=== PATIENT | female | born 1935 | race Caucasian/White ===

== ENCOUNTER 2017-01-24 17:51 | Emergency (ER) | payer MEDICARE, BC ==
--- NOTE | 2017-01-24 19:29 | RAD ---
INDICATION: Ankle pain without reported traumatic injury COMPARISON: None. TECHNIQUE: 3 views of the left ankle were obtained. FINDINGS: The well corticated bones exhibit normal alignment. Chronic appearing degenerative changes include joint space narrowing and mild sclerotic change of the articulating surfaces of the ankle. There is enthesophyte formation at the origin of the plantar fascia and at the insertion site of the Achilles tendon on the calcaneal tubercle. No acute fracture is seen. IMPRESSION: DEGENERATIVE CHANGES OF THE LEFT ANKLE DESCRIBED ABOVE WITHOUT RADIOGRAPHICALLY APPARENT ACUTE FRACTURE OR DISLOCATION. If the patient's symptoms persist, follow-up imaging is recommended.
[2017-01-24 20:25] VITALS: BP 128/46
--- NOTE | 2017-01-24 21:32 | ED ---
Lower Extremity - HPI Summary HPI Summary: Patient presents to ED with CC of left dorsum foot pain x 2 weeks. Pain has not been getting better or worse. She denies known injury or excess stress to the area. Denies numbness, tingling, temperature changes or color changes. She is ambulating, but with mild amount of pain. 2/10. At rest she denies pain. She exercises 3x per week including weight lifting. PMHx significant for spinal stenosis which she takes aleve 3x daily. She has never injured the foot before. She has not tried to ice the area. Ortho DrGaro is Dr. East. - History of Current Complaint Chief Complaint: EDExtremityLower Stated Complaint: LT ANKLE INJURY Time Seen by Provider: 01/24/17 20:59 Hx Obtained From: Patient Mechanism Of Injury: Unknown Onset of Pain: Days Onset/Duration: Days Severity Initially: Moderate Severity Currently: Moderate Pain Intensity: 4 Pain Scale Used: 0-10 Numeric Timing: Constant Location: Is Discrete @ - left dorsum of the foot Associated Signs And Symptoms: Positive: Negative Aggravating Factor(s): Standing, Ambulation Alleviating Factor(s): Rest Able to Bear Weight: No - Risk Factors Gout Risk Factors: Age Over 40 DVT Risk Factors: Negative Septic Arthritis Risk Factor: Extremes of Age - Allergies/Home Medications Allergies/Adverse Reactions: Allergies Allergy/AdvReac Type Severity Reaction Status Date / Time Oxycodone [From Percocet] Allergy Intermediate Nausea And Verified 01/16/15 09: 10 Vomiting Ibuprofen [From Motrin] Allergy Mild Rash Verified 01/16/15 09:10 Adhesive Tape AdvReac Mild Rash Verified 01/16/15 09:10 BEE STINGS Allergy Severe ANAPHYLAXIS Uncoded 01/16/15 09:10 PMH/Surg Hx/FS Hx/Imm Hx Previously Healthy: No - see below Endocrine/Hematology History: Reports: Hx Thyroid Disease - HISTORY OF GRAVES DISEASE, HISTORY OF THYROID STORM Denies: Hx Anticoagulant Therapy, Other Endocrine/Hematological Disorders Cardiovascular History: Reports: Hx Congestive Heart Failure, Hx Coronary Artery Disease - cholesterol control wtih medication, Hx Hypertension, Hx Pacemaker/ICD, Other Cardiovascular Problems/Disorders - CHF Respiratory History: Denies: Other Respiratory Problems/Disorders GI History: Reports: Hx Gastroesophageal Reflux Disease - ON MEDICATION Denies: Other GI Disorders History: Reports: Hx Kidney Stones - PASSED ONE LARGE IN THE PAST Denies: Other Problems/Disorders Musculoskeletal History: Reports: Hx Arthritis - GENERALIZED, Hx Osteoporosis, Other Musculoskeletal History - Carpal Tunnel (L) Sensory History: Reports: Hx Cataracts, Hx Contacts or Glasses - GLASSES, Hx Vision Problem, Hx Hearing Problem Denies: Hx Hearing Aid, Other Sensory Impairments Opthamlomology History: Reports: Hx Cataracts, Hx Contacts or Glasses - GLASSES , Hx Vision Problem Denies: Other Sensory Impairments Neurological History: Reports: Hx Headaches - less often Denies: Other Neuro Impairments/Disorders Psychiatric History: Denies: Other Psychiatric Issues/Disorders - Cancer History Cancer Type, Location and Year: L Breast CA. Skin CA Hx Chemotherapy: No Hx Radiation Therapy: Yes - Surgical History Surgery Procedure, Year, and Place: Hysterectomy 1969. Appendectomy 1969. Ovarian Cyst. Cyst on Abd wall. Cholecystectomy. Lumpectomy breast. Hx Anesthesia Reactions: No - Immunization History Hx Pertussis Vaccination: No Immunizations Up to Date: Unable to Obtain/Confirm Infectious Disease History: Yes Infectious Disease History: Denies: History Other Infectious Disease, Traveled Outside the [place] in Last 30 Days - Family History Known Family History: Positive: None - Social History Occupation: Unemployed, Retired Alcohol Use: None Alcohol Amount: a glass of wine each night Hx Substance Use: No Substance Use Type: Reports: None Hx Tobacco Use: No Smoking Status (MU): Never Smoked Tobacco Review of Systems Constitutional: Negative Eyes: Negative Respiratory: Negative Positive: Abdominal Pain Genitourinary: Negative Positive: no symptoms reported, see HPI Skin: Negative Neurological: Negative All Other Systems Reviewed And Are Negative: Yes Physical Exam Triage Information Reviewed: Yes Vital Signs On Initial Exam: Initial Vitals Temp Pulse Resp BP Pulse Ox 98.0 F 88 20 150/60 100 01/24/17 17:58 01/24/17 17:58 01/24/17 17:58 01/24/17 17:58 01/24/17 17:58 Vital Signs Reviewed: Yes Appearance: Positive: Well-Appearing, Well-Nourished Skin: Positive: Warm, Skin Color Reflects Adequate Perfusion Neck: Positive: Supple, Nontender, No Lymphadenopathy Respiratory/Lung Sounds: Positive: Clear to Auscultation, Breath Sounds Present Cardiovascular: Positive: Normal, Pulses are Symmetrical in both Upper and Lower Extremities Musculoskeletal: Positive: Pain @ - dorsum of the left foot Neurological: Positive: Sensory/Motor Intact, Alert, Oriented to Person Place, Time, Speech Normal Psychiatric: Positive: Normal AVPU Assessment: Alert - [place] Coma Scale Best Eye Response: 4 - Spontaneous Best Motor Response: 6 - Obeys Commands Best Verbal Response: 5 - Oriented Diagnostics - Vital Signs Vital Signs Temp Pulse Resp BP Pulse Ox 01/24/17 20:10 97.5 F 70 16 128/46 97 01/24/17 17:58 98.0 F 88 20 150/60 100 - Laboratory Lab Statement: Any lab studies that have been ordered have been reviewed, and results considered in the medical decision making process. Lower Extremity Course/Dx - Course Course Of Treatment: Patient with left dorsum foot pain with no acute injury. Xray negative for fx. IMPRESSION: DEGENERATIVE CHANGES OF THE LEFT ANKLE DESCRIBED ABOVE WITHOUT. RADIOGRAPHICALLY APPARENT ACUTE FRACTURE OR DISLOCATION. If the patient's symptoms persist, follow-up imaging is recommended. Encouraged to continue aleve, ice and rest. Follow up with Dr. East if symptoms persist. - Diagnoses Differential Diagnosis/HQI/PQRI: Positive: Fracture (Closed), Fracture (Open), Sprain, Strain, Tendonitis Provider Diagnoses: Tendinitis Discharge - Discharge Plan Condition: Stable Disposition: HOME Patient Education Materials: Tendinitis (ED) Referrals: Jose Daniel Ramirez MD [Primary Care Provider] - Additional Instructions: Try to rest the area Continue with your aleve If symptoms become worse, follow up with [facility]
== END 2017-01-24 21:30 | disposition home or self-care (01) ==
LOC: ED 17:51
DX: M77.9 Enthesopathy, unspecified (principal); R10.9 Unspecified abdominal pain
CPT/HCPCS: 99281

== ENCOUNTER 2017-07-03 13:47 | Emergency (ER) | payer MEDICARE, BC ==
[2017-07-03 14:00] VITALS: BP 190/69
[2017-07-03] MEDS ORDERED: predniSONE TAB* 20 MG PO ONE (16:45)
[2017-07-03] MEDS ORDERED: HYDROcodone/ACETAMIN 5-325 MG* 1 TAB PO ONE (16:46)
--- NOTE | 2017-07-03 16:55 | ED ---
Back Pain - HPI Summary HPI Summary: 82 female presents to ED with complaints of right sided low back and leg pain that is chronic however has been worsening over the past couple of days. Patient states she took tylenol with codeine this morning with little relief. Feels she over did it at her strengthening class and has been uncomfortable over the past few days. States staying in the same position and walking makes her pain worse. Changing positions makes pain better. Admits to some tingling into right upper leg intermittently. Denies weakness, numbness, saddle anesthesia and bladder/bowel incontinence. Denies urinary complaints, fever/ chills, abdominal pain. No other complaints. No PMHx. States she has had this for years. Ever since having her PT cut off due to insurances she gets flare ups more frequently. No new or recent trauma/injury. - History of Current Complaint Chief Complaint: EDBackInjuryPain Stated Complaint: BACK PAIN Hx Obtained From: Patient Onset/Duration: Sudden Onset, Lasting Days, Still Present, Worse Since Onset/Duration: Started Days Ago, Atraumatic, Still Present, Worse Since Timing: Constant Back Pain Location: Is Discrete @ - right buttock and low back radiating into upper RLE Severity Initially: Moderate Severity Currently: Severe Pain Intensity: 10 Pain Scale Used: 0-10 Numeric Character: Sharp, Aching Aggravating Symptom(s): Movement, Other - sitting in same position Alleviating Symptom(s): Rest, Position Associated Signs And Symptoms: Positive: Tingling. Negative: Swelling, Redness , Bruising, Weakness, Numbness, Bladder Incontinence, Bowel Incontinence, Pain with Weight Bearing - Risk Factors Cauda Equina Risk Factors: Negative Epidural Abscess Risk Factors: Negative - Allergies/Home Medications Allergies/Adverse Reactions: Allergies Allergy/AdvReac Type Severity Reaction Status Date / Time Oxycodone [From Percocet] Allergy Intermediate Nausea And Verified 06/25/17 09: 35 Vomiting Ibuprofen [From Motrin] Allergy Mild Rash Verified 06/25/17 09:35 Adhesive Tape AdvReac Mild Rash Verified 06/25/17 09:35 BEE STINGS Allergy Severe ANAPHYLAXIS Uncoded 01/24/17 21:26 PMH/Surg Hx/FS Hx/Imm Hx Endocrine/Hematology History: Reports: Hx Thyroid Disease - HISTORY OF GRAVES DISEASE, HISTORY OF THYROID STORM Denies: Hx Anticoagulant Therapy, Other Endocrine/Hematological Disorders Cardiovascular History: Reports: Hx Congestive Heart Failure, Hx Coronary Artery Disease - cholesterol control wtih medication, Hx Hypertension, Hx Pacemaker/ICD, Other Cardiovascular Problems/Disorders - CHF Respiratory History: Denies: Other Respiratory Problems/Disorders GI History: Reports: Hx Gastroesophageal Reflux Disease - ON MEDICATION Denies: Other GI Disorders History: Reports: Hx Kidney Stones - PASSED ONE LARGE IN THE PAST Denies: Other Problems/Disorders Musculoskeletal History: Reports: Hx Arthritis - GENERALIZED, Hx Osteoporosis, Other Musculoskeletal History - Carpal Tunnel (L) Sensory History: Reports: Hx Cataracts, Hx Contacts or Glasses - GLASSES, Hx Vision Problem, Hx Hearing Problem Denies: Hx Hearing Aid, Other Sensory Impairments Opthamlomology History: Reports: Hx Cataracts, Hx Contacts or Glasses - GLASSES , Hx Vision Problem Denies: Other Sensory Impairments Neurological History: Reports: Hx Headaches - less often Denies: Other Neuro Impairments/Disorders Psychiatric History: Denies: Other Psychiatric Issues/Disorders - Cancer History Cancer Type, Location and Year: L Breast CA. Skin CA Hx Chemotherapy: No Hx Radiation Therapy: Yes - Surgical History Surgery Procedure, Year, and Place: Hysterectomy 1969, CATARACTS,. Appendectomy 1969. Ovarian Cyst. Cyst on Abd wall. Cholecystectomy , CARPAL TUNNEL RIGHT AND LEFT. Lumpectomy breast. Hx Anesthesia Reactions: No - Immunization History Immunizations Up to Date: Yes Infectious Disease History: No Infectious Disease History: Denies: History Other Infectious Disease, Traveled Outside the [place] in Last 30 Days - Family History Known Family History: Positive: None - Social History Alcohol Use: Weekly Alcohol Amount: 5 drinks per week Hx Substance Use: No Substance Use Type: Reports: None Hx Tobacco Use: No Smoking Status (MU): Never Smoked Tobacco Review of Systems Constitutional: Negative Cardiovascular: Negative Respiratory: Negative Gastrointestinal: Negative Positive: Arthralgia, Myalgia Skin: Negative Positive: Paresthesia All Other Systems Reviewed And Are Negative: Yes Physical Exam Triage Information Reviewed: Yes Vital Signs On Initial Exam: Initial Vitals Temp Pulse Resp BP Pulse Ox 96.3 F 95 20 190/69 100 07/03/17 13:47 07/03/17 13:47 07/03/17 13:47 07/03/17 13:47 07/03/17 13:47 elevated BP noted, patient diagnosed with HTN and medicated, patient in pain. refused repeat BP at d/c. follow up with PCP for reeval Vital Signs Reviewed: Yes Appearance: Positive: Well-Appearing, Well-Nourished, Pain Distress - moderate, limping with walking and holding side, continues to move around Skin: Positive: Warm, Skin Color Reflects Adequate Perfusion, Dry. Negative: Cold, Cyanosis @, Pale, Erythema @ Eyes: Positive: Conjunctiva Clear ENT: Positive: Hearing grossly normal Neck: Positive: Supple, Nontender Respiratory/Lung Sounds: Positive: Clear to Auscultation, Breath Sounds Present. Negative: Rales, Rhonchi, Wheezes Cardiovascular: Positive: Normal, RRR, Pulses are Symmetrical in both Upper and Lower Extremities Abdomen Description: Positive: Nontender, Soft Bowel Sounds: Positive: Present Musculoskeletal: Positive: Normal, Strength/ROM Intact, Pain @ - with movement of right LE however able, Other - no crepitus step off or obvious deformity. Negative: Limited @, Interruption @, Abnormal @, Tr Sign Left, Tr Sign Right, Edema Left, Edema Right Neurological: Positive: Normal, Sensory/Motor Intact, Alert, Oriented to Person Place, Time, CN Intact II-III, Reflexes Intact, NV Bundle Intact Distally, Abnormal Gait - favoring left side, mild limp when walking however able - [place] Coma Scale Coma Scale Total: 15 Diagnostics - Vital Signs Vital Signs Temp Pulse Resp BP Pulse Ox 07/03/17 13:47 96.3 F 95 20 190/69 100 - Laboratory Lab Statement: Any lab studies that have been ordered have been reviewed, and results considered in the medical decision making process. Back Pain Course/Dx - Course Course Of Treatment: no imaging obtained due to patient not having any new falls or trauma. Chronic low back pain with history of intermittent flares of sciatica. Will treat with pain medication and short course steroid. Tramadol not given due to use of TCA, nortriptyline. Patient did not want a muscle relaxer. Encouraged lidoderm patch, heat/ice and rest. No concern for urinary symptoms or other etiology at this time. Aware of worsening signs and symptoms to watch out for. No concern for cauda equina. Follow up PCP. Normal vitals other than elevated BP. Patient treated for HTN, and is in pain. Refused second BP and recheck. Encouraged following up with PCP for re-check and is currently asymptomatic at this time. - Diagnoses Differential Diagnosis/HQI/PQRI: Positive: Strain, Sprain, Other - sciatica, low back pain, low back strain Provider Diagnoses: Sciatica, Chronic low back pain Discharge - Discharge Plan Condition: Stable Disposition: HOME Prescriptions: HYDROcodone/ACETAMIN 5-325 MG* [[place] 5-325 TAB*] 1 tab PO Q8H PRN #10 tab MDD 2 PRN Reason: Pain predniSONE TAB* [Deltasone TAB*] 20 mg PO DAILY #4 tab Patient Education Materials: Sciatica (ED), Chronic Back Pain (ED) Referrals: Delfino Cain DO [Primary Care Provider] - Additional Instructions: Take prescribed medication as directed. Do not drive while taking pain medication. Steroid preferred to take in the morning. Continue lidoderm patches and heat/ice. Rest and avoid over use. Follow up with PCP for back pain to ensure improvement, and to re-check BP as it was elevated today. Any new or worsening symptoms please seek medical attention promptly, as discussed.
== END 2017-07-03 17:06 | disposition home or self-care (01) ==
LOC: ED 13:47
DX: M54.41 Lumbago with sciatica, right side (principal); E05.01 Thyrotoxicosis with diffuse goiter with thyrotoxic crisis or storm; I25.10 Atherosclerotic heart disease of native coronary artery without angina pectoris; I10 Essential (primary) hypertension; I50.9 Heart failure, unspecified; Z95.0 Presence of cardiac pacemaker; K21.9 Gastro-esophageal reflux disease without esophagitis; Z87.442 Personal history of urinary calculi; Z85.3 Personal history of malignant neoplasm of breast; Z85.828 Personal history of other malignant neoplasm of skin; Z90.710 Acquired absence of both cervix and uterus; Z90.49 Acquired absence of other specified parts of digestive tract; Z98.49 Cataract extraction status, unspecified eye; Z88.6 Allergy status to analgesic agent; Z91.030 Bee allergy status; Z88.5 Allergy status to narcotic agent; Z91.048 Other nonmedicinal substance allergy status
CPT/HCPCS: 99282; J7512

== ENCOUNTER 2017-08-19 15:08 | Emergency (ER) | payer MEDICARE, BC ==
--- NOTE | 2017-08-19 17:31 | RAD ---
INDICATION: Increased low back pain with radiation down the right leg and foot COMPARISON: There are no prior studies available for comparison. TECHNIQUE: Contiguous axial sections were obtained beginning lower thoracic vertebra and continuing through the sacrum. Images were reconstructed in the sagittal and coronal planes. FINDINGS: On the sagittal view images there is loss of intervertebral disc height at multiple levels. There is grade 1 anterolisthesis of L4 over L5. At the same level there is vacuum disc phenomenon at the intervertebral disc space. There is broad-based disc protrusion at L2/L3 at this does not appear to cause any severe central canal or neural foraminal stenosis. There is broad-based disc protrusion at L3/L4 which similarly does not cause any significant narrowing. There is broad-based disc protrusion at L4/L5 which combines with facet arthropathy and osteophyte formation to cause stenosis of the central canal mild right and moderate left neural foraminal stenosis. Partially visualized is a subcutaneous device overlying the right posterior iliac bone with a wire leading into the presacral area. There is diverticulosis in the visualized distal rectosigmoid colon without definite inflammatory changes. IMPRESSION: Multilevel degenerative disc disease of the lumbar spine causes various degrees of central canal or neural foraminal stenoses. This degenerative changes most severe at L4/L5 where there is grade 1 anterolisthesis of L4 over L5. There is no CT evidence of acute fracture. As clinically warranted superior characterization can be made with nonemergent MRI of the lumbar spine.
[2017-08-19] MEDS ORDERED: Ondansetron ODT TAB* 4 MG PO ONE (18:10)
[2017-08-19] MEDS ORDERED: HYDROcodone/ACETAMIN 5-325 MG* 1 TAB PO ONE (18:10)
[2017-08-19 18:17] VITALS: BP 100/67
--- NOTE | 2017-08-20 10:05 | ED ---
Joshua Roger Julia, scribed for Abhijit Orlando MD on 08/19/17 at 1542 . Back Pain - HPI Summary HPI Summary: This patient is a 82 year old F presenting to [facility] with a chief complaint of constant worsening low back pain since this morning. Patient reports intermittent pain in R posterior thigh, intermittent numbness of R foot, and R leg weakness. Patient denies BM today (usual for her), urinary symptoms. The patient rates the pain 8/10 in severity. Symptoms aggravated by movement. Patient has history of spinal stenosis. She has had 2 shots to treat the stenosis providing mild temporary relief, with a third scheduled for 08/28/17. She has relief of chronic symptoms with exercise. Pt takes Tramadol for chronic pain. - History of Current Complaint Chief Complaint: EDBackInjuryPain Stated Complaint: BACK PAIN Time Seen by Provider: 08/19/17 15:33 Hx Obtained From: Patient Onset/Duration: Lasting Hours Onset/Duration: Started Hours Ago Timing: Constant Back Pain Location: Is Diffuse - low back Pain Intensity: 8 Pain Scale Used: 0-10 Numeric Aggravating Symptom(s): Movement Associated Signs And Symptoms: Positive: Numbness - R foot Related History: Similar Episode Dx As - spinal stenosis - Allergies/Home Medications Allergies/Adverse Reactions: Allergies Allergy/AdvReac Type Severity Reaction Status Date / Time MS Oxycodone [From Percocet] Allergy Intermediate Nausea And Verified 08/19/17 15:25 Vomiting MS Ibuprofen [From Motrin] Allergy Mild Rash Verified 08/19/17 15:25 Adhesive Tape AdvReac Mild Rash Verified 08/19/17 15:25 BEE STINGS Allergy Severe ANAPHYLAXIS Uncoded 01/24/17 21:26 PMH/Surg Hx/FS Hx/Imm Hx Endocrine/Hematology History: Reports: Hx Thyroid Disease - HISTORY OF GRAVES DISEASE, HISTORY OF THYROID STORM Denies: Hx Anticoagulant Therapy, Other Endocrine/Hematological Disorders Cardiovascular History: Reports: Hx Congestive Heart Failure, Hx Coronary Artery Disease - cholesterol control wtih medication, Hx Hypertension, Hx Pacemaker/ICD, Other Cardiovascular Problems/Disorders - CHF Respiratory History: Denies: Other Respiratory Problems/Disorders GI History: Reports: Hx Gastroesophageal Reflux Disease - ON MEDICATION Denies: Other GI Disorders History: Reports: Hx Kidney Stones - PASSED ONE LARGE IN THE PAST Denies: Other Problems/Disorders Musculoskeletal History: Reports: Hx Arthritis - GENERALIZED, Hx Osteoporosis, Other Musculoskeletal History - Carpal Tunnel (L) Sensory History: Reports: Hx Cataracts, Hx Contacts or Glasses - GLASSES, Hx Vision Problem, Hx Hearing Problem Denies: Hx Hearing Aid, Other Sensory Impairments Opthamlomology History: Reports: Hx Cataracts, Hx Contacts or Glasses - GLASSES , Hx Vision Problem Denies: Other Sensory Impairments Neurological History: Reports: Hx Headaches - less often Denies: Other Neuro Impairments/Disorders Psychiatric History: Denies: Other Psychiatric Issues/Disorders - Cancer History Cancer Type, Location and Year: L Breast CA. Skin CA Hx Chemotherapy: No Hx Radiation Therapy: Yes - Surgical History Surgery Procedure, Year, and Place: Hysterectomy 1969, CATARACTS,. Appendectomy 1969. Ovarian Cyst. Cyst on Abd wall. Cholecystectomy , CARPAL TUNNEL RIGHT AND LEFT. Lumpectomy breast. Hx Anesthesia Reactions: No Infectious Disease History: No Infectious Disease History: Denies: History Other Infectious Disease, Traveled Outside the [place] in Last 30 Days - Family History Known Family History: Positive: Cardiac Disease, Diabetes - Social History Alcohol Use: Rare Alcohol Amount: 5 drinks per week Hx Substance Use: No Substance Use Type: Reports: None Hx Tobacco Use: No Smoking Status (MU): Never Smoked Tobacco Review of Systems Gastrointestinal: Negative Positive: no symptoms reported Positive: Myalgia - low back pain, R posterior thigh Positive: Numbness - R foot All Other Systems Reviewed And Are Negative: Yes Physical Exam - Summary Physical Exam Summary: Appearance: The patient is well-nourished in no acute distress and in no acute pain. Skin: The skin is warm and dry and skin color reflects adequate perfusion. HEENT: The head is normocephalic and atraumatic. The pupils are equal and reactive. The conjunctivae are clear and without drainage. Nares are patent and without drainage. Mouth reveals moist mucous membranes and the throat is without erythema and exudate. The external ears are intact. The ear canals are patent and without drainage. The tympanic membranes are intact. Neck: the neck is supple with full range of motion and non-tender. There are no carotid bruits. There is no neck vein distension. Respiratory: Chest is non-tender. Lungs are clear to auscultation and breath sounds are symmetrical and equal. Cardiovascular: Heart is regular rate and rhythm. There is no murmur or rub auscultated. There is no peripheral edema and pulses are symmetrical and equal. Abdomen: The abdomen is soft and non-tender. There are normal bowel sounds heard in all four quadrants and there is no organomegaly palpated. Musculoskeletal: There is tenderness noted to R sciatica area. Extremities are non-tender with full range of motion. There is good capillary refill. There is no peripheral edema or calf tenderness elicited. Neurological: Patient is alert and oriented to person, place and time. The patient has symmetrical motor strength in all four extremities. Cranial nerves are grossly intact. Deep tendon reflexes are symmetrical and equal in all four extremities. Psychiatric: The patient has an appropriate affect and does not exhibit any anxiety or depression. Triage Information Reviewed: Yes Vital Signs On Initial Exam: Initial Vitals Temp Pulse Resp BP Pulse Ox 97.5 F 83 18 108/92 100 08/19/17 15:20 08/19/17 15:20 08/19/17 15:20 08/19/17 15:20 08/19/17 15:20 Vital Signs Reviewed: Yes Diagnostics - Vital Signs Vital Signs Temp Pulse Resp BP Pulse Ox 08/19/17 15:20 97.5 F 83 18 108/92 100 - Laboratory Lab Statement: Any lab studies that have been ordered have been reviewed, and results considered in the medical decision making process. - CT Spine CT Interpretation Completed By: Radiologist - Multilevel degenerative disc disease of the lumbar spine causes various degrees of central canal or neural foraminal stenoses. This degenerative changes most severe at L4/L5 where there is grade 1 anterolisthesis of L4 over L5. There is no CT evidence of acute fracture. As clinically warranted superior characterization can be made with nonemergent MRI of the lumbar spine. ED Physician has reviewed this report. Back Pain Course/Dx - Course Course Of Treatment: Ms. Arredondo presented with an exacerbation of her chronic low back pain from spinal stenosis. She additionally now has intermittent numbness and pain in her legs and, given her age and likelihood for osteopenia, I obtained a CT (she has a pacer and can't have MR). The CT was negative for any new compression fracture etc. We spoke about steroids, muscle relaxers, and stronger pain medications. She is on tramadol and stronger narcotics make her vomit. We settled on increasing her pain meds and adding Zofran ODT. - Diagnoses Provider Diagnoses: Sciatica Discharge - Discharge Plan Condition: Stable Disposition: HOME Prescriptions: HYDROcodone/ACETAMIN 5-325 MG* [[place] 5-325 TAB*] 1 tab PO Q6H PRN #20 tab MDD 4 PRN Reason: Pain Ondansetron ODT TAB* [Zofran Odt TAB*] 4 mg PO Q6H PRN #20 tab.odt PRN Reason: Nausea/Vomiting Patient Education Materials: Sciatica (ED) Referrals: Delfino Cain DO [Primary Care Provider] - 1 Week (Follow up with Dr. Cain if symptoms not improved) Additional Instructions: Prescription of Hydrocodone and Zofran is provided. RETURN TO THE EMERGENCY DEPARTMENT FOR CHANGING OR WORSENING SYMPTOMS. The documentation as recorded by the Joshua salas Julia accurately reflects the service I personally performed and the decisions made by me, Abhijit Orlando MD.
== END 2017-08-19 18:16 | disposition home or self-care (01) ==
LOC: ED 15:08
DX: M54.31 Sciatica, right side (principal); G89.29 Other chronic pain; E05.00 Thyrotoxicosis with diffuse goiter without thyrotoxic crisis or storm; I50.9 Heart failure, unspecified; K21.9 Gastro-esophageal reflux disease without esophagitis; Z85.3 Personal history of malignant neoplasm of breast; Z85.828 Personal history of other malignant neoplasm of skin; M51.36 Other intervertebral disc degeneration, lumbar region
CPT/HCPCS: 72131; 99282; A9270-GY

== ENCOUNTER 2017-11-22 05:41 | Inpatient (IN) | payer MEDICARE, BC ==
[~2017-11-22 05:41] MED LIST: Buffered Lidocaine 0.9% SYRIN* 5 ML/SYR SYRINGE INTRADERM ONE
--- OUTSIDE RECORDS SUMMARY | 2017-11-22 05:49 | XMS REPORT ---
:1935 External Reference #:[id number] Author Organization [facility] Address [address] [address] Phone [phone] Care Team Providers Name Role Phone Delfino Cain D.O. Primary Care Physician Unavailable Payers Type Date Identification Numbers Payment Provider Subscriber Medicare Primary Effective: Policy Number: Medicare Tammy Arredondo 1999 [id number] PayID: [id number] [address] [place] [address] Medigap Part B Policy Number: [id number] [facility] Tammy Arredondo PayID: [id number] [address] [place] [address] Medigap Part B Expires: 2013 Policy Number: [facility] Britney Chavez Arnulfo [id number] PayID: [id number] [address] [place] [address] Problems Date Description Provider Status Onset: 04/15/2012 Osteoporosis Yonatan Huerta M.D. Active Onset: 04/15/2012 Chondrocalcinosis Yonatan Huerta M.D. Active Onset: 04/15/2012 Uric acid urolithiasis Yonatan Huerta M.D. Active Onset: 03/18/2014 Senile osteoporosis Yonatan Huerta M.D. Active Onset: 03/18/2014 Degenerative joint disease of hand Yonatan Huerta M.D. Active Onset: 03/18/2014 Multiple joint pain Yonatan Huerta M.D. Active Onset: 03/18/2014 Disorder of lumbar disc Yonatan Huerta M.D. Active Onset: 04/29/2014 Primary cardiomyopathy Richie Ya M.D., Active 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 Active phosphate crystals Onset: 04/28/2015 Cardiomyopathy, unspecified Ica Pacer Schedule Active Onset: 05/04/2015 Kidney stone Zsofia Sanju, [employer] Active Onset: 09/09/2015 Chondrocalcinosis of knee joint Glynn East M.D. Active Onset: 11/12/2017 Essential hypertension Richie Ya M.D., Active [facility], [facility] Onset: 10/19/2017 Thoracic and lumbosacral neuritis Page Carrion MD Active Onset: 09/26/2017 Lumbar spondylolisthesis Page Carrion MD Active Onset: 09/26/2017 Lumbosacral spondylosis without Page Carrion MD Active myelopathy Family History Date Family Member(s) Problem(s) Comments General Heart Disease General Diabetes General Cancer Social History Type Date Description Comments Marital Status Lives With Alone Occupation Retired [place] ETOH Use Denies alcohol use Smoking Patient has never smoked Recreational Drug Use Denies Drug Use Daily Caffeine Consumes on average 1 cup of regular coffee per day Exercise Type/Frequency Does not exercise Allergies, Adverse Reactions, Alerts Date Description Reaction Status Severity Comments 07/18/2011 Percocet active Vomit, Diarrhea 07/18/2011 Motrin active Rash 03/27/2013 Bee Sting active 10/27/2015 Rigo Inhibitors active cough 10/27/2015 Angiotensin Receptor Blockers active cough Medications Medication Date Status Form Strength Qnty SIG Indications Ordering Provider Racheal Active Solution 60mg/ml 60mgml 60 mg sc Z79.899 Zsofia 7 every 6 Sanju, [employer] month M81.0 Coreg 10/11/2015 Active Tablets 25mg 180tabs 1 tablets Richie by mouth Ebenezer twice a ajit Ya M.D., [facility], [facility] Vitamin D3 10/26/2014 Active Capsules 1000Un 1 po qd M8 Zsofia it 1. Sanju, 0 [employer] Epipen 2-Skip Active Device 0.3mg/ 2units sc prn Unknown 0.3ML Protonix Active Tablets DR 40mg 90tabs 1 po hs Unknown Spironolactone Active Tablets 25mg 90tabs 2 po qd Unknown Atorvastatin Calcium Active Tablets 10mg 90tabs 1 by mouth Unknown every day Zyrtec Allergy Active Tablets 10mg 1 by mouth Unknown every day Lactulose Active Solution 20GM/3 30 mls Unknown 0ML once a day Amlodipine Besylate Active Tablets by mouth Unknown 18 every day Hydrochlorothiazide Active Tablets 25mg 1/2 Tab by Unknown mouth every day Tramadol HCL Active Tablets 50mg take 2 Unknown tablets every 8 hours if needed for pain maximum daily dose of (pt takes 1 every night) Gabapentin Active Capsules 100mg 1 tab 3 Unknown times a day Calcium & Vitamin 10/26/2014 - Hx Liquid 30units 1 po bid Zsofia D3 [facility] 10/26/2014 LILIYA Bills Lidoderm 03/18/2014 - Hx Patches 5% 30units topical 10 72 Yonatan 04/28/2014 hours 2. Endo, 93 M.DGaro [place] For Forteo 09/06/2011 - Hx 31G 5 28units use I Yonatan 09/15/2013 mm needles Endo, daily with Angelo forteo pen as directed Forte 08/31/2011 - Hx Solution 600mcg 1pen 20 mcg sc Yonatan 09/15/2013 /2.4ML qd Angelo Huerta Acid Control Maximum - Hx Tablets 20mg Unknown Strength 12/14/2014 Actonel - Hx Tablets 35mg 3Month q week Unknown 09/15/2013 Amlodipine Besylate - Hx Tablets 10mg 90tabs 1 po qd Unknown 03/22/2017 Anexsia - Hx Tablets 7.5-65 4 times Unknown 10/09/2013 0mg daily prn Aromasin - Hx Tablets 25mg 90tabs 1 po qd Unknown 03/18/2014 Aspir-81 - Hx Tablets DR 81mg 90tabs 1 po qd Unknown 10/30/2017 Calcium + D - Hx Tablets 600-20 30tabs 1 po bid Unknown 10/26/2014 0mg-Un it Celexa - Hx Tablets 20mg 1 po qd Unknown 03/18/2014 Cholecalciferol - Hx Crystals Unknown 03/18/2014 Coreg - Hx Tablets 25mg 1 po daily Unknown 10/11/2015 Famotidine - Hx Tablets 10mg 1 po qhs Unknown 12/14/2014 Hydrochlorothiazide - Hx Tablets 12.5mg 90tabs 1/2 tab Unknown 09/08/2015 po bid Levothroid - Hx Tablets 50mcg 90tabs 1 po qd Unknown 10/30/2017 Lipitor - Hx Tablets 10mg 90tabs 1 po qhs Unknown 10/26/2014 Magnesium - Hx Tablets 250mg 1 po qd Unknown 10/26/2014 Multi For Her - Hx Capsules 1 po qd Unknown 05/04/2015 Nabumetone - Hx Tablets 750mg 60tabs 1 po bid Unknown 10/10/2015 Nortriptyline HCL - Hx Capsules 25mg 180caps 2 po qhs Unknown 04/28/2014 Nortriptyline HCL - Hx Capsules 50mg 30caps 1 po q hs Unknown 10/03/2016 Phenobarbital - Hx Tablets 30mg 120tabs 1 po qid Unknown 08/08/2015 prn Klor-Con M10 - Hx Tablets ER 10Meq 30tabs 1 po qd Unknown 05/04/2015 Vitamin C SR - Hx Capsules 500mg 2 daily Unknown 04/28/2014 ER Vitamin D-1000 - Hx Tablets 1000Un 90tabs 1 po qd Unknown 12/23/2014 it Nitrostat - Hx Tablets 0.3mg 25tabs one sl Richie 10/30/2017 Sub q5min up Sol to 3 doses Felton, as needed M.D., replace FACC, every 12 FASNC months Hydrocodone-Acetamino - Hx Tablets 5-325m 1 tab q 8 Unknown phen 10/30/2017 g hrs prn (rare use) Carvedilol - Hx Tablets 25mg 60tabs 1 by mouth Unknown 04/20/2014 once a day Exemestane - Hx Tablets 25mg 30tabs one tab by Unknown 10/03/2016 mouth every morning Losartan Potassium - Hx Tablets 50mg 90tabs 1 by mouth Unknown 10/10/2015 every day Ocuvite - Hx Tablets 1 by mouth Unknown 10/26/2014 every day Trazodone HCL - Hx Tablets 50mg 2 tablet Unknown 12/14/2014 at bedtime as needed Potassium Chloride ER - Hx Capsules 10Meq 1 by mouth Unknown 10/30/2017 ER every day Belladonna-Phenobarbi - Hx prn Unknown ashlee 11/17/2016 Stool Softener - Hx Capsules 100mg 1 by mouth Unknown 10/03/2016 daily prn Nortriptyline HCL - Hx Capsules 50mg 1 by mouth Unknown 10/30/2017 every night at bedtime Famotidine - Hx Tablets 40mg one tab Cardina, 10/03/2016 daily PO MD Jose Daniel Relafen - Hx Tablets 750mg 1 tab po Unknown 10/30/2017 twice daily Losartan Potassium - Hx Tablets 50mg 1 by mouth Unknown 11/11/2017 every day Nabumetone - Hx Tablets 25mg 1 po bid Unknown 10/03/2016 Nortriptyline HCL - Hx Capsules 25mg take one Unknown 10/30/2017 capsules by mouth at bedtime Tramadol HCL - Hx Tablets 50mg 1-2 Unknown 09/26/2017 tablets every 6 hours as needed Medications Administered in Office Medication Date Status Form Strength Qnty SIG Indications Ordering Provider Inj, Administered Injection Richie Sol Regadenoson, 018 Felton, 0.1 MG Angelo, FACRuchi, FASNC Technetium TC Administered Injection Richie Sol 99M 018 [place] YaofAngelo bailey, FACRuchi, Per Unit Dose FASNC Up To 40 Millicuries Prolia Administered Injection Zsofia Injection, 017 Sanju, [employer]SEM[employer]ER Denosumab, 1MG Prolia Administered Injection Zsofia Injection, 017 Sanju, [employer]ER Denosumab, 1MG Prolia Administered Injection Zsofia Injection, 016 Sanju, [employer]ER Denosumab, 1MG Prolia Administered Injection Nurse Visit Injection, 016 RH Denosumab, 1MG Inj, Administered Injection Richie Ebenezer Regadenoson, 016 Ya, 0.1 MG M.D., FACC, FASNC Technetium TC Administered Injection Richie Ebenezer 99M 016 Ya, Tetrofosmin, M.D., FACC, Per Unit Dose FASNC Up To 40 Millicuries Prolia Administered Injection Nurse Visit Injection, 015 RH Denosumab, 1MG Prolia Administered Injection Nurse Visit Injection, 014 RH Denosumab, 1MG Prolia Administered Injection Nurse Visit Injection, 014 RH Denosumab, 1MG Inj, Administered Injection Richieanastacia Sol Regadenoson, 013 Ya, 0.1 MG M.D., FACC, FASNC Technetium TC Administered Injection Richieanastacia Sol 99M 013 Ya, Tetrofosmin, M.D., FACC, Per Unit Dose FASNC Up To 40 Millicuries Vital Signs Date Vital Result Comment 11/13/2017 Height 60 inches 5'0" Weight 113.00 lb BP Systolic Sitting 128 mmHg BP Diastolic Sitting 60 mmHg Pain Level 8 BMI (Body Mass Index) 22.1 kg/m2 11/12/2017 Height 60 inches 5'0" Weight 113.00 lb Heart Rate 62 /min BP Systolic Sitting 134 mmHg at recent echo 10/24/2017 BP Diastolic Sitting 82 mmHg at recent echo 10/24/2017 Respiratory Rate 16 /min BMI (Body Mass Index) 22.1 kg/m2 Ejection Fraction 40-45% echo 10/24/2017 10/19/2017 Height 60 inches 5'0" Weight 116.00 lb BP Systolic Sitting 118 mmHg BP Diastolic Sitting 80 mmHg Pain Level 8 BMI (Body Mass Index) 22.7 kg/m2 09/26/2017 Height 60 inches 5'0" Weight 116.00 lb Heart Rate 76 /min BP Systolic Sitting 130 mmHg BP Diastolic Sitting 62 mmHg Pain Level 7 BMI (Body Mass Index) 22.7 kg/m2 05/22/2017 Height 60 inches 5'0" Weight 116.00 lb w/o shoes Heart Rate 68 /min reg BP Systolic Sitting 130 mmHg Rue, reg cuff BP Diastolic Sitting 50 mmHg Rue, reg cuff Respiratory Rate 16 /min Pain Level 8 back BMI (Body Mass Index) 22.7 kg/m2 11/17/2016 Height 60 inches 5'0" Weight 123.00 lb Heart Rate 75 /min BP Systolic Sitting 139 mmHg BP Diastolic Sitting 63 mmHg Body Temperature 97.0 F Pain Level 1 BMI (Body Mass Index) 24.0 kg/m2 10/04/2016 Height 60 inches 5'0" Weight 123.00 lb w/boots Heart Rate 82 /min BP Systolic Sitting 158 mmHg LA reg cuff BP Diastolic Sitting 64 mmHg LA reg cuff BP Systolic Standing 144 mmHg LA reg cuff BP Diastolic Standing 58 mmHg LA reg cuff BMI (Body Mass Index) 24.0 kg/m2 Ejection Fraction 40-45% Echo 09/28/15 05/19/2016 Height 60 inches 5'0" Weight 124.00 lb Heart Rate 72 /min BP Systolic Sitting 108 mmHg BP Diastolic Sitting 60 mmHg Body Temperature 97.0 F Pain Level 1 BMI (Body Mass Index) 24.2 kg/m2 11/03/2015 Height 60 inches 5'0" Weight 120.00 lb Heart Rate 80 /min BP Systolic Sitting 142 mmHg BP Diastolic Sitting 70 mmHg Respiratory Rate 14 /min Pain Level 2 BMI (Body Mass Index) 23.4 kg/m2 10/11/2015 Height 60 inches 5'0" Weight 121.75 lb w/shoes Heart Rate 80 /min BP Systolic Sitting 136 mmHg LA reg cuff BP Diastolic Sitting 64 mmHg LA reg cuff BP Systolic Standing 138 mmHg LA reg cuff BP Diastolic Standing 60 mmHg LA reg cuff BMI (Body Mass Index) 23.8 kg/m2 Ejection Fraction 40-45 echo 09/28/15 09/09/2015 Height 60 inches 5'0" Weight 119.00 lb Heart Rate 78 /min Pain Level 7 at its worst BMI (Body Mass Index) 23.2 kg/m2 05/04/2015 Height 60 inches 5'0" Weight 119.00 lb Heart Rate 68 /min BP Systolic Sitting 150 mmHg BP Diastolic Sitting 64 mmHg Pain Level 3 BMI (Body Mass Index) 23.2 kg/m2 12/25/2014 Height 60 inches 5'0" Weight 118.31 lb no shoes Heart Rate 76 /min BP Systolic Sitting 148 mmHg LA, reg cuff BP Diastolic Sitting 72 mmHg LA, reg cuff BP Systolic Standing 140 mmHg LA BP Diastolic Standing 66 mmHg LA Respiratory Rate 14 /min BMI (Body Mass Index) 23.1 kg/m2 12/15/2014 Height 60 inches 5'0" Weight 112.00 lb Pain Level 3 BMI (Body Mass Index) 21.9 kg/m2 10/26/2014 Height 60 inches 5'0" Weight 116.50 lb Heart Rate 74 /min BP Systolic Sitting 168 mmHg BP Diastolic Sitting 70 mmHg Pain Level 2 BMI (Body Mass Index) 22.7 kg/m2 04/29/2014 Height 60 inches 5'0" Weight 112.25 lb Heart Rate 80 /min BP Systolic 156 mmHg recheck, reg, left BP Diastolic 68 mmHg recheck, reg, left BP Systolic Sitting 190 mmHg reg, left BP Diastolic Sitting 82 mmHg reg, left BP Systolic Lying Down 158 mmHg reg, right BP Diastolic Lying Down 70 mmHg reg, right BMI (Body Mass Index) 21.9 kg/m2 04/21/2014 Height 60 inches 5'0" Weight 116.00 lb Heart Rate 68 /min BP Systolic Sitting 150 mmHg BP Diastolic Sitting 62 mmHg Pain Level 2 BMI (Body Mass Index) 22.7 kg/m2 03/18/2014 Height 60 inches 5'0" Weight 114.50 lb Heart Rate 68 /min BP Systolic Sitting 150 mmHg BP Diastolic Sitting 70 mmHg Pain Level 2 BMI (Body Mass Index) 22.4 kg/m2 12/10/2013 Height 60 inches 5'0" Weight 109.00 lb Heart Rate 71 /min BP Systolic 151 mmHg BP Diastolic 86 mmHg BMI (Body Mass Index) 21.3 kg/m2 11/10/2013 Height 60 inches 5'0" Weight 106.00 lb Heart Rate 79 /min BP Systolic 123 mmHg BP Diastolic 67 mmHg BMI (Body Mass Index) 20.7 kg/m2 10/27/2013 Height 60 inches 5'0" Weight 111.00 lb Heart Rate 70 /min BP Systolic 124 mmHg BP Diastolic 66 mmHg BMI (Body Mass Index) 21.7 kg/m2 10/08/2013 Height 62 inches 5'2" Weight 112.00 lb Heart Rate 78 /min BP Systolic 148 mmHg BP Diastolic 69 mmHg BMI (Body Mass Index) 20.5 kg/m2 09/15/2013 Height 62 inches 5'2" Weight 111.00 lb Heart Rate 79 /min BP Systolic Sitting 122 mmHg BP Diastolic Sitting 56 mmHg BMI (Body Mass Index) 20.3 kg/m2 04/16/2013 Height 62 inches 5'2" Weight 127.00 lb Heart Rate 64 /min BP Systolic Sitting 104 mmHg BP Diastolic Sitting 56 mmHg BMI (Body Mass Index) 23.2 kg/m2 10/15/2012 Height 62 inches 5'2" Weight 124.00 lb Heart Rate 77 /min BP Systolic Sitting 130 mmHg BP Diastolic Sitting 67 mmHg BMI (Body Mass Index) 22.7 kg/m2 04/15/2012 Height 62 inches 5'2" Weight 123.00 lb Heart Rate 78 /min BP Systolic Sitting 130 mmHg BP Diastolic Sitting 72 mmHg BMI (Body Mass Index) 22.5 kg/m2 12/15/2011 Height 62 inches 5'2" Weight 122.00 lb Heart Rate 80 /min BP Systolic Sitting 124 mmHg BP Diastolic Sitting 71 mmHg BMI (Body Mass Index) 22.3 kg/m2 08/16/2011 Height 62 inches 5'2" Weight 125.00 lb Heart Rate 78 /min BP Systolic Sitting 126 mmHg BP Diastolic Sitting 71 mmHg BMI (Body Mass Index) 22.9 kg/m2 07/18/2011 Height 62 inches 5'2" Weight 126.00 lb Heart Rate 74 /min BP Systolic Sitting 103 mmHg BMI (Body Mass Index) 23.0 kg/m2 Results Test Date Test Result H/L Range Note Inr/Protime 10/05/2017 Inr 1.07 High 0.77-1.02 Laboratory test 10/05/2017 Partial Thrombo 27.4 seconds 26.0-36.3 finding Time PTT Platelet Count 10/05/2017 Platelet Count 447 10^3/uL 150-450 Mean Platelet Volume 7.3 um3 Low 7.4-10.4 Laboratory test finding 11/17/2016 Vitamin D Total 25(Oh) 47.4 ng/mL 30- 50 Basic Metabolic Panel 11/17/2016 Sodium 131 mmol/L Low 133-145 Potassium 4.6 mmol/L 3.5-5.0 Chloride 98 mmol/L Low 101-111 Co2 Carbon Dioxide 27 mmol/L 22-32 Anion Gap 6 mmol/L 2-11 Glucose 93 mg/dL 70-100 Blood Urea Nitrogen 22 mg/dL 6-24 Creatinine 1.23 mg/dL High 0.51-0.95 BUN/Creatinine Ratio 17.9 8-20 Calcium 8.9 mg/dL 8.6-10.3 Egfr Non- 41.9 >60 Egfr 53.9 >60 1 CBC Auto Diff 08/30/2016 White Blood Count 7.6 10^3/uL 3.5-10.8 Red Blood Count 3.89 10^6/uL Low 4.0-5.4 Hemoglobin 11.7 g/dL Low 12.0-16.0 Hematocrit 35 % 35-47 Mean Corpuscular Volume 89 fL 80-97 Mean Corpuscular Hemoglobin 30 pg 27-31 Mean Corpuscular HGB Conc 34 g/dL 31-36 Red Cell Distribution Width 14 % 10.5-15 Platelet Count 312 10^3/uL 150-450 Mean Platelet Volume 8 um3 7.4-10.4 Abs Neutrophils 4.7 10^3/uL 1.5-7.7 Abs Lymphocytes 1.8 10^3/uL 1.0-4.8 Abs Monocytes 0.6 10^3/uL 0-0.8 Abs Eosinophils 0.3 10^3/uL 0-0.6 Abs Basophils 0.1 10^3/uL 0-0.2 Abs Nucleated RBC 0 10^3/uL Granulocyte % 62.2 % 38-83 Lymphocyte % 23.8 % Low 25-47 Monocyte % 8.4 % 1-9 Eosinophil % 4.4 % 0-6 Basophil % 1.2 % 0-2 Nucleated Red Blood Cells % 0 Comp Metabolic Panel 08/30/2016 Sodium 129 mmol/L Low 133-145 Potassium 4.3 mmol/L 3.5-5.0 Chloride 95 mmol/L Low 101-111 Co2 Carbon Dioxide 29 mmol/L 22-32 Anion Gap 5 mmol/L 2-11 Glucose 83 mg/dL 70-100 Blood Urea Nitrogen 19 mg/dL 6-24 Creatinine 1.10 mg/dL High 0.51-0.95 BUN/Creatinine Ratio 17.3 8-20 Calcium 8.9 mg/dL 8.6-10.3 Total Protein 6.2 g/dL Low 6.4-8.9 Albumin 3.9 g/dL 3.2-5.2 Globulin 2.3 g/dL 2-4 Albumin/Globulin Ratio 1.7 1-3 Total Bilirubin 0.40 mg/dL 0.2-1.0 Alkaline Phosphatase 50 U/L 34-104 Alt 15 U/L 7-52 Ast 20 U/L 13-39 Egfr Non- 47.7 >60 Egfr 61.3 >60 2 Laboratory test finding 05/19/2016 Vitamin D Total 25(Oh) 32.7 ng/mL 30- 50 Comp Metabolic Panel 04/21/2016 Sodium 132 mmol/L Low 133-145 3 Potassium 4.2 mmol/L 3.5-5.0 3 Chloride 100 mmol/L Low 101-111 3 Co2 Carbon Dioxide 26 mmol/L 22-32 3 Anion Gap 6 mmol/L 2-11 3 Glucose 84 mg/dL 70-100 3 Blood Urea Nitrogen 17 mg/dL 6-24 3 Creatinine 1.18 mg/dL High 0.51-0.95 3 BUN/Creatinine Ratio 14.4 8-20 3 Calcium 8.9 mg/dL 8.6-10.3 3 Total Protein 6.0 g/dL Low 6.4-8.9 3 Albumin 3.9 g/dL 3.2-5.2 3 Globulin 2.1 g/dL 2-4 3 Albumin/Globulin Ratio 1.9 1-3 3 Total Bilirubin 0.40 mg/dL 0.2-1.0 3 Alkaline Phosphatase 46 U/L 34-104 3 Alt 15 U/L 7-52 3 Ast 19 U/L 13-39 3 Egfr Non- 44.0 >60 3 Egfr 56.5 >60 3, 4 Laboratory test finding 04/21/2016 TSH (Thyroid Stim 2.87 mcIU/mL 0.34- 5.60 3, 5 Horm) Laboratory test finding 11/03/2015 Vitamin D Total 39.1 ng/mL 30-50 25(Oh) Laboratory test finding 05/07/2015 Vitamin D Total 49.3 ng/mL 30-50 25(Oh) Urine Culture And 10/26/2014 Urine Culture (SEE NOTE) 6 Sensitivities Vitamin D, 25 Hydroxy 10/26/2014 25-Hydroxy Vitamin <4.0 ng/mL D2 25-Hydroxy Vitamin D3 45 ng/mL 25-Hydroxy Vitamin D Total 45 ng/mL 7 Laboratory test finding 10/26/2014 Erythrocyte Sed Rate 11 mm/Hr 0-40 C Reactive Protein 3.09 mg/L < 5.00 8 Comp Metabolic Panel 10/26/2014 Sodium 128 mmol/L Low 133-145 Potassium 3.7 mmol/L 3.5-5.0 Chloride 95 mmol/L Low 101-111 Co2 Carbon Dioxide 26 mmol/L 22-32 Anion Gap 7 mmol/L 2-11 Glucose 89 mg/dL 70-100 Blood Urea Nitrogen 20 mg/dL 6-24 Creatinine 0.98 mg/dL High 0.51-0.95 BUN/Creatinine Ratio 20.4 High 8-20 Calcium 9.0 mg/dL 8.6-10.3 Total Protein 6.4 g/dL 6.4-8.9 Albumin 4.3 g/dL 3.2-5.2 Globulin 2.1 g/dL 2-4 Albumin/Globulin Ratio 2.0 1-3 Total Bilirubin 0.40 mg/dL 0.2-1.0 Alkaline Phosphatase 50 U/L 34-104 Alt 10 U/L 7-52 Ast 16 U/L 13-39 Egfr Non- 54.7 >60 Egfr 70.4 >60 9 CBC Auto Diff 10/26/2014 White Blood Count 9.3 10^3/uL 4.8-10.8 Red Blood Count 3.90 10^6/uL Low 4.0-5.4 Hemoglobin 12.3 g/dL 12.0-16.0 Hematocrit 36 % 35-47 Mean Corpuscular Volume 92 fL 80-97 Mean Corpuscular Hemoglobin 32 pg High 27-31 Mean Corpuscular HGB Conc 34 g/dL 31-36 Red Cell Distribution Width 14 % 10.5-15 Platelet Count 281 10^3/uL 150-450 Mean Platelet Volume 8 um3 7.4-10.4 Abs Neutrophils 7.0 10^3/uL 1.5-7.7 Abs Lymphocytes 1.5 10^3/uL 1.0-4.8 Abs Monocytes 0.5 10^3/uL 0-0.8 Abs Eosinophils 0.1 10^3/uL 0-0.6 Abs Basophils 0.1 10^3/uL 0-0.2 Abs Nucleated RBC 0 10^3/uL Granulocyte % 75.8 % 38-83 Lymphocyte % 15.9 % Low 25-47 Monocyte % 5.7 % 1-9 Eosinophil % 1.6 % 0-6 Basophil % 1.0 % 0-2 Nucleated Red Blood Cells % 0 Urinalysis Profile 10/26/2014 Urine Color Yellow Urine Appearance Cloudy Urine Specific [place] 1.014 1.010-1.030 Urine pH 6.0 5-9 Urine Urobilinogen Negative Negative Urine Ketones Trace Negative Urine Protein Negative Negative Urine Leukocytes 3+ Negative Urine Blood Negative Negative * * Negative 10 Urine Nitrite Negative Negative Urine Bilirubin Negative Negative Urine Glucose Negative Negative Urine White Blood Cell 3+(>20/hpf) Absent Urine Red Blood Cell Trace(0-2/hpf) Absent Urine Bacteria Absent Absent Urine Squamous Epithelial Cell Present Absent Laboratory test 07/14/2014 TSH (Thyroid Stimulating 4.48 IU/mL 0.34-5.60 3, 11 finding Horm) Lipid Profile 07/14/2014 Triglycerides 88 mg/dL 3, 12 (Trig/Chol/HDL) Cholesterol 160 mg/dL 3, 13 HDL Cholesterol 63.9 mg/dL 3, 14 LDL Cholesterol 79 mg/dL 3, 15 Laboratory test finding 03/26/2014 Rheumatoid Factor <15 IU/mL <15 16 CBC Auto Diff 03/26/2014 White Blood Count 8.2 10^3/uL 4.8-10.8 Red Blood Count 3.72 10^6/uL Low 4.0-5.4 Hemoglobin 11.6 g/dL Low 12.0-16.0 Hematocrit 34 % Low 35-47 Mean Corpuscular Volume 90 fL 80-97 Mean Corpuscular Hemoglobin 31 pg 27-31 Mean Corpuscular HGB Conc 35 g/dL 31-36 Red Cell Distribution Width 14 % 10.5-15 Platelet Count 264 10^3/uL 150-450 Mean Platelet Volume 7 um3 Low 7.4-10.4 Abs Neutrophils 6.2 10^3/uL 1.5-7.7 Abs Lymphocytes 1.3 10^3/uL 1.0-4.8 Abs Monocytes 0.6 10^3/uL 0-0.8 Abs Eosinophils 0.1 10^3/uL 0-0.6 Abs Basophils 0.1 10^3/uL 0-0.2 Abs Nucleated RBC 0 10^3/uL Granulocyte % 75.2 % 38-83 Lymphocyte % 15.4 % Low 25-47 Monocyte % 7.3 % 1-9 Eosinophil % 1.5 % 0-6 Basophil % 0.6 % 0-2 Nucleated Red Blood Cells % 0 Comp Metabolic Panel 03/26/2014 Sodium 125 mmol/L Low 133-145 Potassium 4.0 mmol/L 3.7-5.6 Chloride 92 mmol/L Low 101-111 Co2 Carbon Dioxide 28 mmol/L 22-32 Anion Gap 5 mmol/L 2-11 Glucose 88 mg/dL 70-100 Blood Urea Nitrogen 16 mg/dL 6-24 Creatinine 0.91 mg/dL 0.51-0.95 BUN/Creatinine Ratio 17.6 8-20 Calcium 8.9 mg/dL 8.6-10.3 Total Protein 6.6 g/dL 6.4-8.9 Albumin 4.1 g/dL 3.2-5.2 Globulin 2.5 g/dL 2-4 Albumin/Globulin Ratio 1.6 1-3 Total Bilirubin 0.40 mg/dL 0.2-1.0 Alkaline Phosphatase 69 U/L 34-104 Alt 11 U/L 7-52 Ast 17 U/L 13-39 Egfr Non- 59.6 >60 Egfr 76.7 >60 17 Laboratory test finding 03/26/2014 C Reactive Protein 5.10 mg/L High < 5.00 18 Cyclic Citrullinated Pept IgG <15.6 U 19 Erythrocyte Sed Rate 16 mm/Hr 0-40 Laboratory test finding 12/31/2013 T4 9.78 g/dL 6.09-12.23 TSH (Thyroid Stimulating Horm) 2.90 IU/mL 0.34-5.60 Vitamin D 1,25-Dihydroxy 66 pg/mL 18-78 20 CBC Auto Diff 11/18/2013 White Blood Count 12.4 10^3/uL High 4.8-10.8 3 Red Blood Count 3.53 10^6/uL Low 4.0-5.4 3 Hemoglobin 10.9 g/dL Low 12.0-16.0 3 Hematocrit 32 % Low 35-47 3 Mean Corpuscular Volume 90 fL 80-97 3 Mean Corpuscular Hemoglobin 31 pg 27-31 3 Mean Corpuscular HGB Conc 34 g/dL 31-36 3 Red Cell Distribution Width 14 % 10.5-15 3 Platelet Count 293 10^3/uL 150-450 3 Mean Platelet Volume 8 um3 7.4-10.4 3 Abs Neutrophils 9.5 10^3/uL High 1.5-7.7 3 Abs Lymphocytes 1.7 10^3/uL 1.0-4.8 3 Abs Monocytes 0.7 10^3/uL 0-0.8 3 Abs Eosinophils 0.4 10^3/uL 0-0.6 3 Abs Basophils 0.1 10^3/uL 0-0.2 3 Abs Nucleated RBC 0 10^3/uL 3 Granulocyte % 76.3 % 38-83 3 Lymphocyte % 13.7 % Low 25-47 3 Monocyte % 5.8 % 1-9 3 Eosinophil % 3.2 % 0-6 3 Basophil % 1.0 % 0-2 3 Nucleated Red Blood Cells % 0 3 Comp Metabolic Panel 11/18/2013 Sodium 133 mmol/L 133-145 3 Potassium 3.5 mmol/L Low 3.7-5.6 3 Chloride 99 mmol/L Low 101-111 3 Co2 Carbon Dioxide 27 mmol/L 22-32 3 Anion Gap 7 mmol/L 2-11 3 Glucose 85 mg/dL 70-100 3 Blood Urea Nitrogen 15 mg/dL 6-24 3 Creatinine 1.02 mg/dL High 0.51-0.95 3 BUN/Creatinine Ratio 14.7 8-20 3 Calcium 8.7 mg/dL 8.6-10.3 3 Total Protein 5.7 g/dL Low 6.4-8.9 3 Albumin 3.8 g/dL 3.2-5.2 3 Globulin 1.9 g/dL Low 2-4 3 Albumin/Globulin Ratio 2.0 1-3 3 Total Bilirubin 0.40 mg/dL 0.2-1.0 3 Alkaline Phosphatase 92 U/L 34-104 3 Alt 9 U/L 7-52 3 Ast 13 U/L 13-39 3 Egfr Non- 52.4 >60 3 Egfr 67.4 >60 3, 21 Laboratory test 11/18/2013 TSH (Thyroid 3.43 IU/mL 0.34-5.60 3, 22 finding Stimulating Horm) Comp Metabolic Panel 09/15/2013 Sodium 131 mmol/L Low 133-145 Potassium 3.6 mmol/L Low 3.7-5.6 Chloride 94 mmol/L Low 101-111 Co2 Carbon Dioxide 28 mmol/L 22-32 Anion Gap 9 mmol/L 2-11 Glucose 93 mg/dL 70-100 Blood Urea Nitrogen 20 mg/dL 6-24 Creatinine 1.10 mg/dL High 0.51-0.95 BUN/Creatinine Ratio 18.2 8-20 Calcium 10.0 mg/dL 8.6-10.3 Total Protein 6.4 g/dL 6.4-8.9 Albumin 4.2 g/dL 3.2-5.2 Globulin 2.2 g/dL 2-4 Albumin/Globulin Ratio 1.9 1-3 Total Bilirubin 0.50 mg/dL 0.2-1.0 Alkaline Phosphatase 99 U/L 34-104 Alt 12 U/L 7-52 Ast 17 U/L 13-39 Egfr Non- 48.0 >60 Egfr 61.8 >60 23 CBC Auto Diff 09/15/2013 White Blood Count 13.0 10^3/uL High 4.8-10.8 Red Blood Count 3.76 10^6/uL Low 4.0-5.4 Hemoglobin 11.5 g/dL Low 12.0-16.0 Hematocrit 34 % Low 35-47 Mean Corpuscular Volume 89 fL 80-97 Mean Corpuscular Hemoglobin 31 pg 27-31 Mean Corpuscular HGB Conc 34 g/dL 31-36 Red Cell Distribution Width 14 % 10.5-15 Platelet Count 271 10^3/uL 150-450 Mean Platelet Volume 9 um3 7.4-10.4 Abs Neutrophils 9.9 10^3/uL High 1.5-7.7 Abs Lymphocytes 1.9 10^3/uL 1.0-4.8 Abs Monocytes 0.8 10^3/uL 0-0.8 Abs Eosinophils 0.2 10^3/uL 0-0.6 Abs Basophils 0.1 10^3/uL 0-0.2 Abs Nucleated RBC 0 10^3/uL Granulocyte % 76.6 % 38-83 Lymphocyte % 14.4 % Low 25-47 Monocyte % 6.3 % 1-9 Eosinophil % 1.7 % 0-6 Basophil % 1.0 % 0-2 Nucleated Red Blood Cells % 0 Vitamin D, 25 Hydroxy 09/15/2013 25-Hydroxy Vitamin D2 <4.0 ng/mL 25-Hydroxy Vitamin D3 43 ng/mL 25-Hydroxy Vitamin D Total 43 ng/mL 24 Inr/Protime 01/27/2013 Inr 1.00 High 0.87-0.97 CBC Auto Diff 01/27/2013 White Blood Count 7.0 10^3/uL 4.8-10.8 Red Blood Count 3.59 10^6/uL Low 4.0-5.4 Hemoglobin 11.3 g/dL Low 12.0-16.0 Hematocrit 33 % Low 35-47 Mean Corpuscular Volume 91 fL 80-97 Mean Corpuscular Hemoglobin 31 pg 27-31 Mean Corpuscular HGB Conc 34 g/dL 31-36 Red Cell Distribution Width 14 % 10.5-15 Platelet Count 229 10^3/uL 150-450 Mean Platelet Volume 8 um3 7.4-10.4 Abs Neutrophils 4.7 10^3/uL 1.5-7.7 Abs Lymphocytes 1.5 10^3/uL 1.0-4.8 Abs Monocytes 0.5 10^3/uL 0-0.8 Abs Eosinophils 0.3 10^3/uL 0-0.6 Abs Basophils 0.1 10^3/uL 0-0.2 Abs Nucleated RBC 0 10^3/uL Granulocyte % 66.2 % 38-83 Lymphocyte % 21.5 % Low 25-47 Monocyte % 7.6 % 1-9 Eosinophil % 3.7 % 0-6 Basophil % 1.0 % 0-2 Nucleated Red Blood Cells % 0 Laboratory test 01/27/2013 Activated Partial 29.8 seconds 22.18-37.18 finding Thrombo Time Basic Metabolic Panel 01/27/2013 Sodium 131 mmol/L Low 133-145 Potassium 4.1 mmol/L 3.5-5.0 Chloride 99 mmol/L Low 101-111 Co2 Carbon Dioxide 26.0 mmol/L 22-32 Anion Gap 6.0 mmol/L 2-11 Glucose 77 mg/dL 70-100 Blood Urea Nitrogen 28 mg/dL High 6-24 Creatinine 1.00 mg/dL 0.50-1.40 BUN/Creatinine Ratio 28.0 High 8-20 Calcium 9.1 mg/dL 8.1-9.9 Egfr Non- 53.6 >60 Egfr 69.0 >60 25 CBC Auto Diff 10/22/2012 White Blood Count 7.0 10^3/uL 4.8-10.8 Red Blood Count 3.61 10^6/uL Low 4.0-5.4 Hemoglobin 11.3 g/dL Low 12.0-16.0 Hematocrit 33 % Low 35-47 Mean Corpuscular Volume 91 fL 80-97 Mean Corpuscular Hemoglobin 31 pg 27-31 Mean Corpuscular HGB Conc 35 g/dL 31-36 Red Cell Distribution Width 14 % 10.5-15 Platelet Count 251 10^3/uL 150-450 Mean Platelet Volume 8 um3 7.4-10.4 Abs Neutrophils 4.4 10^3/uL 1.5-7.7 Abs Lymphocytes 1.7 10^3/uL 1.0-4.8 Abs Monocytes 0.5 10^3/uL 0-0.8 Abs Eosinophils 0.3 10^3/uL 0-0.6 Abs Basophils 0.1 10^3/uL 0-0.2 Abs Nucleated RBC 0.01 10^3/uL Granulocyte % 63.2 % 38-83 Lymphocyte % 24.7 % Low 25-47 Monocyte % 7.5 % 1-9 Eosinophil % 3.6 % 0-6 Basophil % 1.0 % 0-2 Nucleated Red Blood Cells % 0.1 Laboratory test finding 10/22/2012 Cholesterol 155 mg/dL Less than 200 26 LDL Cholesterol Direct 79 mg/dL Less Than 100 27 TSH (Thyroid Stimulating Horm) 0.77 miu/mL 0.34-5.60 28 Comp Metabolic Panel 10/22/2012 Sodium 133 mmol/L 133-145 Potassium 4.2 mmol/L 3.5-5.0 Chloride 99 mmol/L Low 101-111 Co2 Carbon Dioxide 26.0 mmol/L 22-32 Anion Gap 8.0 mmol/L 2-11 Glucose 89 mg/dL 70-100 Blood Urea Nitrogen 16 mg/dL 6-24 Creatinine 1.20 mg/dL 0.50-1.40 BUN/Creatinine Ratio 13.3 8-20 Calcium 9.3 mg/dL 8.1-9.9 Total Protein 5.8 g/dL Low 6.2-8.1 Albumin 3.6 g/dL 3.2-5.2 Globulin 2.2 g/dL 2-4 Albumin/Globulin Ratio 1.6 1-3 Total Bilirubin 0.8 mg/dL 0.4-1.5 Alkaline Phosphatase 119 U/L High 30-110 Alt 17 U/L 14-54 Ast 20 U/L 12-42 Egfr Non- 43.6 >60 Egfr 56.0 >60 29 Laboratory test finding 05/22/2012 C Reactive Protein 0.8 mg/dL High Less Than 0.5 Comp Metabolic Panel 05/22/2012 Sodium 133 mmol/L 133-145 Potassium 4.1 mmol/L 3.5-5.0 Chloride 98 mmol/L Low 101-111 Co2 Carbon Dioxide 26.0 mmol/L 22-32 Anion Gap 9.0 mmol/L 2-11 Glucose 89 mg/dL 70-100 Blood Urea Nitrogen 19 mg/dL 6-24 Creatinine 1.10 mg/dL 0.50-1.40 BUN/Creatinine Ratio 17.3 8-20 Calcium 9.0 mg/dL 8.1-9.9 Total Protein 5.7 GM/DL Low 6.2-8.1 Albumin 3.5 GM/DL 3.2-5.2 Globulin 2.2 GM/DL 2-4 Albumin/Globulin Ratio 1.6 1-3 Total Bilirubin 1.1 mg/dL High 0.1-1.0 30 Alkaline Phosphatase 182 U/L High 30-110 Alt 19 U/L 14-54 Ast 22 U/L 12-42 Egfr Non- 48.2 >60 Egfr 61.9 >60 31 CBC With Manual Diff 05/22/2012 White Blood Count 6.4 10^3/uL 4.8-10.8 Red Blood Count 3.61 10^6/uL Low 4.0-5.4 Hemoglobin 11.1 g/dL Low 12.0-16.0 Hematocrit 33 % Low 35-47 Mean Corpuscular Volume 90 fL 80-97 Mean Corpuscular Hemoglobin 31 pg 27-31 Mean Corpuscular HGB Conc 34 g/dL 31-36 Red Cell Distribution Width 14 % 10.5-15 Platelet Count 243 10^3/uL 150-450 Mean Platelet Volume 8 um3 7.4-10.4 Abs Neutrophils 3.9 10^3/uL 1.5-7.7 Abs Lymphocytes 1.8 10^3/uL 1.0-4.8 Abs Monocytes 0.5 10^3/uL 0-0.8 Abs Eosinophils 0.2 10^3/uL 0-0.6 Abs Basophils 0.1 10^3/uL 0-0.2 Abs Nucleated RBC 0.01 10^3/uL Neutrophil % 69.0 % 38-83 Band % 0 % 0-8 Lymphocytes % 21.0 % Low 25-47 Monocytes % 6.0 % 0-13 Eosinophils % 1.0 % 0-6 Basophil % 1.0 % 0-2 Reactive Lymph % 2.0 % 0-6 Metamyelocytes % 0 % 0-2 Myelocytes % 0 % 0-1 Promyelocytes % 0 % Blast % 0 % RBC Morphology Normal Normal Comp Metabolic Panel 12/15/2011 Sodium 136 mmol/L 135-145 Potassium 4.3 mmol/L 3.5-5.0 Chloride 100 mmol/L Low 101-111 Co2 (Carbon Dioxide) 29.0 mmol/L 22-32 Anion Gap 7.0 mmol/L 2-11 32 Glucose 79 mg/dL 70-100 BUN 23 mg/dL 6-24 Creatinine 1.2 mg/dL 0.50-1.40 One Over Creatinine 0.83 BUN/Creatinine Ratio 19.2 8-20 Calcium 10.0 mg/dL High 8.1-9.9 Total Protein 6.0 GM/DL Low 6.2-8.1 Albumin 3.6 GM/DL 3.2-5.2 Globulin 2.4 GM/DL 2-4 Albumin/Globulin Ratio 1.5 1-3 Bilirubin Total 1.2 mg/dL 0.4-1.5 33 Alkaline Phosphatase 122 U/L High 30-110 Alt (SGPT) 16 U/L 14-54 Ast (Sgot) 22 U/L 12-42 eGFR Non- 43.7 > 60 eGFR 56.2 > 60 34 1 Because ethnic data is not always readily available, this report includes an eGFR for both -Americans and non- Americans. The National Kidney Disease Education Program (NKDEP) does not endorse the use of the MDRD equation for patients that are not between the ages of 18 and 70, are , have extremes of body size, muscle mass, or nutritional status, or are non- or non-. According to the National Kidney Foundation, irrespective of diagnosis, the stage of the disease is based on the level of kidney function: Stage Description GFR(mL/min/1.73 m(2)) 1 Kidney damage with normal or decreased GFR 90 2 Kidney damage with mild decrease in GFR 60-89 3 Moderate decrease in GFR 30-59 4 Severe decrease in GFR 15-29 5 Kidney failure <15 (or dialysis) 2 Because ethnic data is not always readily available, this report includes an eGFR for both -Americans and non- Americans. The National Kidney Disease Education Program (NKDEP) does not endorse the use of the MDRD equation for patients that are not between the ages of 18 and 70, are , have extremes of body size, muscle mass, or nutritional status, or are non- or non-. According to the National Kidney Foundation, irrespective of diagnosis, the stage of the disease is based on the level of kidney function: Stage Description GFR(mL/min/1.73 m(2)) 1 Kidney damage with normal or decreased GFR 90 2 Kidney damage with mild decrease in GFR 60-89 3 Moderate decrease in GFR 30-59 4 Severe decrease in GFR 15-29 5 Kidney failure <15 (or dialysis) 3 FASTING 4 Because ethnic data is not always readily available, this report includes an eGFR for both -Americans and non- Americans. The National Kidney Disease Education Program (NKDEP) does not endorse the use of the MDRD equation for patients that are not between the ages of 18 and 70, are , have extremes of body size, muscle mass, or nutritional status, or are non- or non-. According to the National Kidney Foundation, irrespective of diagnosis, the stage of the disease is based on the level of kidney function: Stage Description GFR(mL/min/1.73 m(2)) 1 Kidney damage with normal or decreased GFR 90 2 Kidney damage with mild decrease in GFR 60-89 3 Moderate decrease in GFR 30-59 4 Severe decrease in GFR 15-29 5 Kidney failure <15 (or dialysis) 5 FASTING 6 RUN DATE: 10/28/14 [facility] LAB LIVE PAGE 1 RUN TIME: [address] [place] [address] Specimen Inquiry Name: TAMMY ARREDONDO : [address]: Ana Bills NP Acct: [id number] Unit: [id number] AGE: 79 Location: LAB Re10/26/14 SEX: F Status: REG REF SPEC: [id number] VIVI: 10/26/14-[address] [facility] [address]: Ana Bills NP REQ: [id number] RECD: 10/26/14-150 STATUS: TERENCE BOYER DR: Jose Daniel Ramirez MD _ SOURCE: URINE SPDESC: ORDERED: Urine Culture QUERIES: Provider Requisition # [id number] Urine Source: Clean Catch Procedure Result Verified Site Urine Culture Final 10/28/14- 0925 ML Organism 1 ESCHERICHIA COLI [employer] Count >100,000 (Many) CFU/ML 1. ESCHERICHIA COLI M.I.C. RX --------- ------ Ampicillin <=2 S Cefazolin <=4 S Cefepime <=1 S Ceftriaxone <=1 S Ciprofloxacin <=0.25 S Gentamicin <=1 S Levofloxacin <=0.12 S Meropenem <=0.25 S Nitrofurantoin 32 S Tetracycline <=1 S Pipercillin/Tazobactam <=4 S Trimethoprim/Sulfamethoxazole <=20 S Amoxicillin/Clavulanic Acid <=2 S Aztreonam <=1 S Contact the Microbiology Department for any additional antibiotic reporting. * ML - MAIN LAB ([facility]) . END OF REPORT * ML=Testing performed at Main Lab DEPARTMENT OF PATHOLOGY, [address] [place] [address] Kleber Atkins M.D. Director [facility] # [id number] 7 REFERENCE VALUE 25-HYDROXY D TOTAL (D2+D3) Optimum levels in the healthy population are 20-50, patients with bone disease may benefit from higher levels within this range. Test Performed by: [address] [address] [place] Operator: Tommy Felder II, M.D., Ph.D. 8 Acute inflammation: >10.00 9 Because ethnic data is not always readily available, this report includes an eGFR for both -Americans and non- Americans. The National Kidney Disease Education Program (NKDEP) does not endorse the use of the MDRD equation for patients that are not between the ages of 18 and 70, are , have extremes of body size, muscle mass, or nutritional status, or are non- or non-. According to the National Kidney Foundation, irrespective of diagnosis, the stage of the disease is based on the level of kidney function: Stage Description GFR(mL/min/1.73 m(2)) 1 Kidney damage with normal or decreased GFR 90 2 Kidney damage with mild decrease in GFR 60-89 3 Moderate decrease in GFR 30-59 4 Severe decrease in GFR 15-29 5 Kidney failure <15 (or dialysis) 10 *Ascorbic acid is present which may interfere with detection of blood. 11 FASTING 12 Desirable <150 Borderline high 150-199 High 200-499 Very High >500 13 Desirable <200 Borderline high 200-239 High >239 14 Low <40 Desirable: 40-60 High: >60 15 Desirable <100 Near Optimal 100-129 Borderline high 130-159 High 160-189 Very High >189 16 Test Performed by: [place] [address] [employer] Operator: Christian Chun III, M.D. 17 Because ethnic data is not always readily available, this report includes an eGFR for both -Americans and non- Americans. The National Kidney Disease Education Program (NKDEP) does not endorse the use of the MDRD equation for patients that are not between the ages of 18 and 70, are , have extremes of body size, muscle mass, or nutritional status, or are non- or non-. According to the National Kidney Foundation, irrespective of diagnosis, the stage of the disease is based on the level of kidney function: Stage Description GFR(mL/min/1.73 m(2)) 1 Kidney damage with normal or decreased GFR 90 2 Kidney damage with mild decrease in GFR 60-89 3 Moderate decrease in GFR 30-59 4 Severe decrease in GFR 15-29 5 Kidney failure <15 (or dialysis) 18 Acute inflammation: >10.00 19 -- REFERENCE VALUE -- <20.0 (Negative) Test Performed by: [facility] [address] [place] [address] [employer] Operator: Christian Chun III, M.D. 20 Test Performed by: [facility] [address] [place] [address] [employer] Operator: Christian Chun III, M.D. 21 Because ethnic data is not always readily available, this report includes an eGFR for both -Americans and non- Americans. The National Kidney Disease Education Program (NKDEP) does not endorse the use of the MDRD equation for patients that are not between the ages of 18 and 70, are , have extremes of body size, muscle mass, or nutritional status, or are non- or non-. According to the National Kidney Foundation, irrespective of diagnosis, the stage of the disease is based on the level of kidney function: Stage Description GFR(mL/min/1.73 m(2)) 1 Kidney damage with normal or decreased GFR 90 2 Kidney damage with mild decrease in GFR 60-89 3 Moderate decrease in GFR 30-59 4 Severe decrease in GFR 15-29 5 Kidney failure <15 (or dialysis) 22 FASTING 23 Because ethnic data is not always readily available, this report includes an eGFR for both -Americans and non- Americans. The National Kidney Disease Education Program (NKDEP) does not endorse the use of the MDRD equation for patients that are not between the ages of 18 and 70, are , have extremes of body size, muscle mass, or nutritional status, or are non- or non-. According to the National Kidney Foundation, irrespective of diagnosis, the stage of the disease is based on the level of kidney function: Stage Description GFR(mL/min/1.73 m(2)) 1 Kidney damage with normal or decreased GFR 90 2 Kidney damage with mild decrease in GFR 60-89 3 Moderate decrease in GFR 30-59 4 Severe decrease in GFR 15-29 5 Kidney failure <15 (or dialysis) 24 -- REFERENCE VALUE -- 25-HYDROXY D TOTAL (D2+D3) Optimum levels in the healthy population are 20-50, patients with bone disease may benefit from higher levels within this range. Test Performed by: [facility] - [address] [address] [place] Operator: Christian Chun III, M.D. 25 Because ethnic data is not always readily available, this report includes an eGFR for both -Americans and non- Americans. The National Kidney Disease Education Program (NKDEP) does not endorse the use of the MDRD equation for patients that are not between the ages of 18 and 70, are , have extremes of body size, muscle mass, or nutritional status, or are non- or non-. According to the National Kidney Foundation, irrespective of diagnosis, the stage of the disease is based on the level of kidney function: Stage Description GFR(mL/min/1.73 m(2)) 1 Kidney damage with normal or decreased GFR 90 2 Kidney damage with mild decrease in GFR 60-89 3 Moderate decrease in GFR 30-59 4 Severe decrease in GFR 15-29 5 Kidney failure <15 (or dialysis) 26 FASTING 27 LDL Interpretation: Low Risk Optimal Level: LDL Less than 100 MG/DL Near or Above Optimal: LDL 100-129 MG/DL Borderline High Risk: LDL 130-159 MG/DL High Risk: LDL 160-189 MG/DL Very High Risk: LDL Greater than 189 MG/DL 28 FASTING 29 Because ethnic data is not always readily available, this report includes an eGFR for both -Americans and non- Americans. The National Kidney Disease Education Program (NKDEP) does not endorse the use of the MDRD equation for patients that are not between the ages of 18 and 70, are , have extremes of body size, muscle mass, or nutritional status, or are non- or non-. According to the National Kidney Foundation, irrespective of diagnosis, the stage of the disease is based on the level of kidney function: Stage Description GFR(mL/min/1.73 m(2)) 1 Kidney damage with normal or decreased GFR 90 2 Kidney damage with mild decrease in GFR 60-89 3 Moderate decrease in GFR 30-59 4 Severe decrease in GFR 15-29 5 Kidney failure <15 (or dialysis) 30 A metabolite of Naproxen, O-desmethylnaproxen, has been shown to interfere with the Jendrassik-Media method for measuring total bilirubin. Samples from patients who have taken Naproxen have shown spurious elevation in total bilirubin levels. 31 Because ethnic data is not always readily available, this report includes an eGFR for both -Americans and non- Americans. The National Kidney Disease Education Program (NKDEP) does not endorse the use of the MDRD equation for patients that are not between the ages of 18 and 70, are , have extremes of body size, muscle mass, or nutritional status, or are non- or non-. According to the National Kidney Foundation, irrespective of diagnosis, the stage of the disease is based on the level of kidney function: Stage Description GFR(mL/min/1.73 m(2)) 1 Kidney damage with normal or decreased GFR 90 2 Kidney damage with mild decrease in GFR 60-89 3 Moderate decrease in GFR 30-59 4 Severe decrease in GFR 15-29 5 Kidney failure <15 (or dialysis) 32 Anion gap measurement may be of limited value in the presence of any alkalosis, especially in a combined acid base disorder. . 33 A metabolite of Naproxen, O-desmethylnaproxen, has been shown to interfere with the Jendrassik-Nusrat method for measuring total bilirubin. Samples from patients who have taken Naproxen have shown spurious elevation in total bilirubin levels. 34 Because ethnic data is not always readily available, this report includes an eGFR for both -Americans and non- Americans. The National Kidney Disease Education Program (NKDEP) does not endorse the use of the MDRD equation for patients that are not between the ages of 18 and 70, are , have extremes of body size, muscle mass, or nutritional status, or are non- or non-. According to the National Kidney Foundation, irrespective of diagnosis, the stage of the disease is based on the level of kidney function: Stage Description GFR(mL/min/1.73 m(2)) 1 Kidney damage with normal or decreased GFR 90 2 Kidney damage with mild decrease in GFR 60-89 3 Moderate decrease in GFR 30-59 4 Severe decrease in GFR 15-29 5 Kidney failure <15 (or dialysis) Procedures Date CPT Code Description Status 11/12/2017 44146 EKG Tracing & Interpretation Completed 11/07/2017 95501 Stress Test Completed 11/07/2017 39897 Myocardial Perfusion Imaging Tomographic (Spect) Completed Multiple Studies 10/24/2017 92937 ECHO Transthoracic, Real-Time 2D With Doppler And Color Completed Flow 10/24/2017 05691 ECHO Transthoracic, Real-Time 2D With Doppler And Color Completed Flow 09/13/2017 35973 Pace Maker Eval W/Iterative Adjustment Multiple Lead Completed Pacemaker 09/13/2017 36956 Pace Maker Eval W/Iterative Adjustment Multiple Lead Completed Pacemaker 06/12/2017 80481 Pace Maker Eval W/Iterative Adjustment Multiple Lead Completed Pacemaker 06/12/2017 06130 Pace Maker Eval W/Iterative Adjustment Multiple Lead Completed Pacemaker 05/22/2017 66527 Admin Of Inj Completed 04/24/2017 Bone Mineral Density Test Completed 12/25/2016 90644 Pace Maker Eval W/Iterative Adjustment Multiple Lead Completed Pacemaker 11/17/2016 43326 Admin Of Inj Completed 10/04/2016 82588 EKG Tracing & Interpretation Completed 08/24/2016 95234 Pace Maker Eval W/Iterative Adjustment Multiple Lead Completed Pacemaker 06/01/2016 03011 Pace Maker Eval W/Iterative Adjustment Multiple Lead Completed Pacemaker 05/19/2016 86517 Chemotherpy Admin Subcutaneous/Im Non-Hormonal Completed Anti-Neoplastic 01/27/2016 09575 Pace Maker Eval W/Iterative Adjustment Multiple Lead Completed Pacemaker 11/17/2015 24091 Chemotherpy Admin Subcutaneous/Im Non-Hormonal Completed Anti-Neoplastic 10/07/2015 66788 Stress Test Completed 10/07/2015 81824 Myocardial Perfusion Imaging Tomographic (Spect) Completed Multiple Studies 09/28/2015 62214 ECHO Transthoracic, Real-Time 2D With Doppler And Color Completed Flow 08/31/2015 30325 Pace Maker Eval W/Iterative Adjustment Multiple Lead Completed Pacemaker 05/27/2015 Mammogram Completed 05/27/2015 Bone Mineral Density Test Completed 04/28/2015 98286 Interrogation Device Eval In Person W/ Completed Analysis,Single,Dual,Mul 02/25/2015 14261 Chemotherpy Admin Subcutaneous/Im Non-Hormonal Completed Anti-Neoplastic 01/11/2015 46166 Admin Of Inj Completed 12/29/2014 55919 Interrogation Device Eval In Person W/DR Completed Analysis,Single,Dual,Mul 12/25/2014 51974 EKG Tracing & Interpretation Completed 08/03/2014 07735 Pace Maker Eval W/Iterative Adjustment Multiple Lead Completed Pacemaker 05/21/2014 27304 Admin Of Inj Completed 04/29/2014 81064 EKG Tracing & Interpretation Completed 04/01/2014 66013 Pace Maker Eval W/Iterative Adjustment Multiple Lead Completed Pacemaker 03/30/2014 35306 ECHO Transthoracic, Real-Time 2D With Doppler And Color Completed Flow 03/26/2014 Mammogram Completed 11/26/2013 63736 Pace Maker Eval W/Iterative Adjustment Multiple Lead Completed Pacemaker 11/18/2013 04518 Admin Of Inj Completed 10/27/2013 47290 Xray Knee 3 Views Completed 10/27/2013 41654 Rad Exam; Wrist Limited, 2 Views Completed 10/27/2013 17018 Short Arm Cast Application Completed 10/08/2013 59165 FX Patella Care Completed 10/08/2013 89446 CLST TRMT Distal Radial FX Completed 07/24/2013 94315 Pace Maker Eval W/Iterative Adjustment Multiple Lead Completed Pacemaker 06/18/2013 43303 Rad Exam; Hand Comp Completed 06/18/2013 04134 Rad Exam; Hand Comp Completed 05/21/2013 Bone Mineral Density Test Completed 05/14/2013 41873 Closed TX Metacarpal FX Single W/O Manipulation, Ea Completed Bone 05/14/2013 34825 Short Arm Splint Application Completed 03/25/2013 64570 ECHO Transthoracic, Real-Time 2D With Doppler And Color Completed Flow 03/24/2013 70647 Pace Maker Eval W/Iterative Adjustment Multiple Lead Completed Pacemaker 12/06/2012 02917 ECHO Transthoracic, Real-Time 2D With Doppler And Color Completed Flow 11/25/2012 80240 Stress Test Completed 11/25/2012 93622 Myocardial Perfusion Imaging Tomographic (Spect) Completed Multiple Studies 11/14/2012 87824 Pace Maker Eval W/Iterative Adjustment Multiple Lead Completed Pacemaker 11/14/2012 06427 EKG Tracing & Interpretation Completed 07/23/2012 23335 Pace Maker Eval W/Iterative Adjustment Multiple Lead Completed Pacemaker 05/06/2012 49528 Interrogation Device Eval In Person W/ Completed Analysis,Single,Dual,Mul 02/14/2012 Mammogram Completed 07/06/2003 96990 Color Doppler Completed 07/06/2003 29121 Pulse Doppler & Continuous Wave Completed 07/06/2003 24172 Echocardiogram Completed Encounters Type Date Location Provider CPT E/M Dx Office Visit 10/19/2017 [facility] [place] 8[address] M47.26 11:00a Of Ilan Carrion MD M43.16 M51.16 M48.061 Office Visit 09/26/2017 11:30a [facility] 81053 M47.26 Of Ilan Carrion MD M43.16 Office Visit 05/22/2017 10:30a [facility] Of Ana Bills, [employer] 06326 M81.0 [employer] Operator N20.0 N18.2 M48.00 Z92.29 Z79.899 Office Visit 11/17/2016 11:00a [facility] Of Ana Bills, [employer] 38704 M81.0 [employer] Operator N18.2 N20.0 M11.261 Z92.29 Z79.899 Office Visit 10/04/2016 11:00a [facility] [place], [address] I42.9 MSebastian, [facility], [facility] Office Visit 05/19/2016 11:00a [facility] Of CAR[place] ZepedaP 07899 M81.0 [employer] Operator N20.0 Z92.29 Office Visit 11/03/2015 9:00a [facility] Of Ana Bills, [employer] 98464 M81.0 [employer] Operator M11.869 N20.0 Z79.899 M11.261 Office Visit 10/11/2015 10:30a [facility] [place]ie Ya, [address]42 I42.9 MSebastian, [facility], [facility] Office Visit 09/09/2015 9:30a [facility] [place], [address]117 M11.262 C.M.A. MSebastian Office Visit 05/04/2015 11:00a [facility]ology Services Ana Bills, 58552 M81.0 Of [facility] M11.869 N20.0 Z79.899 Office Visit 12/25/2014 1:15p [facility] [place] [facility] [place] [address] 425.4 [address]eb[address]ian, [facility], [facility] Office Visit 12/15/2014 9:30a [facility] [place], [address]58[address] 712.16 C.M.AGaro Stephens Office Visit 10/26/2014 1:00p [facility] Of Ana Bills, 04916 733.00 [facility] [employer] 712.30 715.94 274.11 599.0 275.49 Office Visit 04/29/2014 1:15p [facility] [place], [address] 425.4 M.D., FACC, FASUT Office Visit 04/21/2014 1:20p [facility] Yonatan Endo, 79316 719.49 Of [facility] M.D. 733.01 715.94 722.93 Office Visit 03/18/2014 1:00p [facility] Services Yonatan Endo, 74288 733.01 Of [facility] M.DGaro 712.30 715.94 719.49 722.93 Office Visit 09/15/2013 1:00p [facility] Services Ana Bills, [employer] 33979 733.00 Of [facility] 712.30 274.11 Office Visit 04/16/2013 1:00p [facility] Ana Bills, [employer] 11587 274.11 Of [facility] 733.00 712.30 244.9 Office Visit 03/27/2013 10:30a [facility] [place], 73255 425.4 M.D., FACC, FASUT Office Visit 12/11/2012 10:30a [facility] Richie Sol Ya, [address]86 425.4 M.D., FACC, FASUT Office Visit 10/15/2012 1:40p [facility] [place] Bills, 02928 274.11 [facility] PARTS ASSEMBLER 733.00 712.30 Office Visit 07/17/2012 10:30a [facility] Richieanastacia Ya, 73480 425.4 [employer] Operator M.Juan., FACC, FASUT Office Visit 05/14/2012 10:15a [facility] Richie Ebenezer Ya, 57361 425.4 [facility] MSebastian, FACC, FASNC Office Visit 04/15/2012 10:40a [facility] Yonatan Endo, 16263 733.00 [facility] Victor M.DGaro 712.30 274.11 Office Visit 12/15/2011 10:20a [facility] Yonatan Huerta, 69868 733.00 [facility] nAgelo 712.30 Office Visit 08/16/2011 3:20p [facility] Yonatan Endo, 20299 733.00 [facility] Angelo 712.30 Office Visit 07/18/2011 3:00p [facility] Yonatan Hureta, 44173 733.00 [facility] Angelo 712.30 274.11 Plan of Care Future Appointment(s):11/22/2017 7:30 am - Page Carrion MD at [facility]11/30/2017 10:00 am - LILIYA Zepeda at [facility]11/13/2017 - Page Carrion, MDM47.26 Other spondylosis with radiculopathy, lumbar regionFollow up:RV one week [id number] Spondylolisthesis, lumbar [id number] Intervertebral disc disorders w radiculopathy, lumbar region
[2017-11-22] MEDS ORDERED: Sodium Citrate/Citric Acid* 15 ML UDC ONE (05:56)
[2017-11-22] MEDS ORDERED: Sodium Citrate/Citric Acid* 15 ML UDC PO ONE (06:00)
[2017-11-22] MEDS ORDERED: NS 0.9% 1000 ML* 1,000 ML IV SCH (06:00)
[2017-11-22] MEDS ORDERED: Lidocaine 1% MPF wEPI 200,000* 30 ML SDV ONE (06:54)
[2017-11-22] MEDS ORDERED: Thrombin 5,000 UNITS* 1 APPLIC KIT - topical use - TOPICAL ONE (06:54)
[2017-11-22] MEDS ORDERED: Bacitracin IV* 50,000 UNITS INJ ONE (06:54)
[2017-11-22 07:05] LABS: EGFR Non-African American 46.6 (>60)
[2017-11-22] MEDS ORDERED: fentaNYL* 50 MCG/ML 2 ML VIAL (100 MCG VIAL) ONE (07:32)
[2017-11-22] MEDS ORDERED: Etomidate* 2 MG/ML 10 ML VIAL ONE (07:34)
[2017-11-22] MEDS ORDERED: Rocuronium* 10 MG/ML VIAL ONE (07:34)
[2017-11-22] MEDS ORDERED: ceFAZolin 2 GM PREMIX (*) 2 GM/50 ML BAG IVPB ONE (08:06)
[2017-11-22] MEDS ORDERED: Dexamethasone IV* 4 MG/ML 1 ML (4 MG) ONE (08:38)
[2017-11-22] MEDS ORDERED: Glycopyrrolate IV* 0.2 MG/ML 1 ML VIAL ONE (09:56)
[2017-11-22] MEDS ORDERED: VASOPRESSIN 20 UNITS/ML 1 ML VIAL ONE (09:56)
[2017-11-22] MEDS ORDERED: Neostigmine Methylsulfate* 1 MG/ML 10 ML VIAL (1 mg/ml) ONE (09:56)
[2017-11-22] MEDS ORDERED: Ondansetron INJ* 2 MG/ML VIAL IV PRN ×2 (10:20→10:36)
[2017-11-22] MEDS ORDERED: fentaNYL* 50 MCG/ML 2 ML VIAL (100 MCG VIAL) IV PRN (10:20)
[2017-11-22] MEDS ORDERED: Naloxone* 0.4 MG/ML 1 ML VIAL IV PRN (10:20)
[2017-11-22] MEDS ORDERED: Magnesium Hydroxide LIQ* 30 ML UDC PO PRN (10:36)
[2017-11-22] MEDS ORDERED: traMADol TAB* 50 MG PO PRN (10:44)
--- NOTE | 2017-11-22 13:37 | RAD ---
INDICATION: Laminectomy L4-L5 COMPARISON: None FINDINGS: 22.4 seconds of fluoroscopy were provided for the there [facility] surgical department. Fluoroscopic spot imaging of the lumbar spine were obtained for operative control. CPT II Codes: G9500 (fluoro time doc)
[2017-11-22] MEDS: Gabapentin CAP(*) 100 MG PO SCH ×2 (13:58→20:25)
[2017-11-22] MEDS ORDERED: Cetirizine* 10 MG TAB PO SCH (18:00)
[2017-11-22] MEDS: Carvedilol TAB* 25 MG PO SCH (20:27)
--- NOTE | 2017-11-22 20:54 | CONS ---
CONSULTATION REPORT: DATE OF CONSULT: 11/22/17 PROVIDER: Juni Santoro NP ATTENDING PHYSICIAN: Dr. Lord (report dictated by Juni Santoro NP). REFERRING PHYSICIAN: Dr. Carrion. REASON FOR CONSULT: Co-medical management. HISTORY OF PRESENT ILLNESS: Ms. Arredondo is a very pleasant 82-year-old female with a past medical history of back pain radiating to the right lower extremity starting in approximately May 2016, in which she underwent physical therapy and had injections, but still continued to experience significant back pain. She underwent a CT myelogram, which revealed a grade 1 spondylolisthesis at L4-5 with L4-5 degenerative disk disease and right L4-5 partially calcified disk herniation with significant neural foraminal stenosis and underwent a L4-5 decompression with a foraminotomy today with Dr. Carrion. Hospital Medicine was asked to co-medical manage. Ms. 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 The patient was seen and evaluated on short stay surgical unit where she was found to be sitting up in bed, alert and oriented x3, reading a book, in no acute distress. She reports her pain is well controlled. She denies any radiation to her extremities. No numbness. She denies any chest pain, shortness of breath. No nausea. She reports a good appetite. No fevers or chills. PAST MEDICAL HISTORY: As stated in the HPI. CURRENT MEDICATIONS: 1. Amlodipine 5 mg p.o. q.a.m. 2. Lipitor 10 mg p.o. q.a.m. 3. Coreg 25 mg p.o. b.i.d. 4. Zyrtec 10 mg p.o. q.p.m. 5. Gabapentin 100 mg p.o. t.i.d. 6. Hydrochlorothiazide 12.5 mg p.o. daily. 7. [place] 5/325 mg 1 tab p.o. q.4 hours p.r.n. 8. LR 75 mL an hour. 9. Synthroid 50 mcg p.o. daily. 10. Cozaar 50 mg p.o. q.a.m. 11. Milk of mag 30 mL p.o. daily p.r.n. 12. Omeprazole 20 mg p.o. q.a.m. 13. Zofran 4 mg IV q.6 hours p.r.n. 14. Potassium chloride 10 mEq p.o. q.a.m. 15. Spironolactone 50 mg p.o. daily. ALLERGIES: BEE VENOM, HONEY, IBUPROFEN, ACETAMINOPHEN (from PERCOCET), ADHESIVE TAPE, OXYCODONE (from PERCOCET), BEE STINGS. FAMILY HISTORY: Reviewed and noncontributory. REVIEW OF SYSTEMS: A 14-point review of systems was performed. All the pertinent positives and negatives are mentioned in the history of present illness, otherwise are negative. PHYSICAL EXAM: Vital Signs: Temperature 97.4, heart rate 62, respirations 18, O2 sat 100% on room air, blood pressure 120/48. HEENT: Head is normocephalic, atraumatic. Pupils are equal and reactive to light. Oropharynx is clear. Moist mucous membranes. Good dentition. Neck is supple. Cardiac: S1, S2. Regular rate and rhythm. No lower extremity edema noted. Lungs are clear to auscultation bilaterally. Good aeration throughout. Abdomen is soft, nontender , nondistended. Normal bowel sounds throughout. Extremities: No clubbing, cyanosis, or edema. Musculoskeletal: The patient has a clean, dry, intact dressing to her lower lumbar area with no drainage noted. Neuro: Alert and oriented x3. Cranial nerves II through XII are grossly intact. No focal deficits noted. ASSESSMENT AND PLAN: Ms. Arredondo is an 82-year-old female with a past medical history of chronic back pain radiating to right lower extremity and which she was found to have L4-5 degenerative disk disease with partial disk herniation with significant neural foraminal stenosis and which she underwent a L4-L5 decompression with foraminotomy. Hospital Medicine has been asked to co- medical manage. 1. Status post L4-5 decompression with foraminotomy. Disposition per Neurosurgery. Pain management. Bowel regimen. Most likely, the patient will go home tomorrow. 2. History of congestive heart failure. The patient appears to be euvolemic. Continue home medications. The patient is noted to take spironolactone, which can be continued at 50 mg p.o. daily. 3. Status post pacemaker secondary to tachycardia. The patient did have medical clearance from her mass spec, Dr. Ya. 4. Hypertension. The patient is normotensive. Okay to continue home medications with Norvasc 5 mg p.o. q.a.m., Coreg 25 mg p.o. b.i.d., hydrochlorothiazide 12.5 mg p.o. daily, and Cozaar 50 mg p.o. q.a.m. 5. Hypothyroidism. Continue with Synthroid 50 mcg p.o. daily. 6. Gastroesophageal reflux disease, asymptomatic. Continue omeprazole 20 mg p.o. q.a.m. 7. Hyponatremia. The patient is noted to have a history of hyponatremia and she appears to be around her baseline. I did note she is on hydrochlorothiazide. She has received fluids postoperatively. I think, at this time, I will continue the hydrochlorothiazide and recheck a BMP in the morning. 8. Chronic kidney disease. The patient's creatinine today is 1.12. This appears to be around her baseline. 9. DVT prophylaxis: SCDs. 10. Code status: Full code. TIME SPENT: Approximately 60 minutes was spent on this consultation. JUNI SANTORO NP [id number]/[facility] #: [id number] PRAVEENA
[2017-11-22] MEDS ORDERED: Spironolactone TAB* 25 MG PO SCH (21:00)
[2017-11-22] MEDS ORDERED: Carvedilol TAB* 25 MG PO SCH (21:00)
[2017-11-22] MEDS ORDERED: Hydrochlorothiazide TAB* 25 MG PO SCH (21:00)
[2017-11-23] MEDS: HYDROcodone/ACETAMIN 5-325 MG* 1 TAB PO PRN ×3 (00:47→10:38)
--- NOTE | 2017-11-23 03:20 | OP ---
DATE OF OPERATION: 11/22/17 - ROOM #350 DATE OF : 35 SURGEON: Page Carrion MD PROCUREMENT INTERNSHIP: SARINA Fishman. The case was done with the assistance of a surgical PA because of the complexity of the case ANESTHESIA: General. PRE-OP DIAGNOSES: 1. L4-5 spondylolisthesis. 2. Lumbar stenosis. 3. Degenerative disk disease. 4. Right L4-5 herniated nucleus pulposus and neuroforaminal stenosis. POST-OP DIAGNOSES: 1. L4-5 spondylolisthesis. 2. Lumbar stenosis. 3. Degenerative disk disease. 4. Right L4-5 herniated nucleus pulposus and neuroforaminal stenosis. OPERATIVE PROCEDURE: The patient underwent right minimally invasive L4-5 decompressive laminectomy with right L4-5 fragmentectomy and diskectomy with right L4 and L5 extensive foraminotomies. ESTIMATED BLOOD LOSS: 25 cc. COMPLICATIONS: None. INDICATIONS: The patient is a very pleasant 82-year-old female with multiple medical problems including pacemaker and placement of a bladder stimulator, who has complaints of back pain radiating to the right lower extremity with weakness of the right lower extremity and decreased sensation. MRI revealed evidence of stable L4-5 spondylolisthesis with significant right L4-5 neuroforaminal stenosis and herniated nucleus pulposus which was partially calcified. After failing conservative treatment modalities, the patient was offered the option of surgical intervention in the form of decompressive laminectomy, diskectomy and foraminotomies. After explaining all expectations, limitations and possible complication of the procedure with complications included but not limited to bleeding, infection, risk of injury to adjacent structures, coma, paralysis, , need for additional procedure, anesthesia risks, stroke, blindness, cancer, instability, spinal fluid leak, need for additional procedures, anesthesia risk, the patient was agreeable to proceeding with surgery and informed consent was obtained. She understood that she may need to have additional procedures in the future and elected for a simple decompression at this point with the possibility of fusion in the future. The patient understood that her condition may not improve and in fact may get worse after the surgery and she may need to have additional procedure in the future. She also understood that operative plan may be modified according to intraoperative findings and conditions. DESCRIPTION OF PROCEDURE: The patient was brought to the operating room and was placed under general anesthesia by the anesthesia team. She was carefully positioned prone on a Simba frame and all bony prominences were meticulously padded. Her skin was prepped and draped in a standard fashion. After appropriate surgical pause and patient identification, the appropriate surgical level was confirmed with intraoperative fluoroscopic imaging. A small paramedian incision at the L4-5 disk space was marked on the skin and the skin was infiltrated with local anesthetic. A #10 surgical blade was used to incise the skin. Incision was carried down to the dorsal fascia with the use of a surgical knife. Over a series of dilators, a METRx tubular retractor was introduced into the field. After confirmation of appropriate surgical level, the operative microscope was brought into the field. The lamina on the right of L4 was exposed as well as the medial part of the facet and the pars. With the use of high speed drill and Kerrison punches, a laminectomy of L4 was performed extending to both sides of the midline. The dura was found to be under significant pressure. There was significant calcification of the ligamentum flavum. After exposing the right lateral aspect of the dura, a right L5 foraminotomy was performed and intraoperative fluoroscopic imaging confirmed appropriate surgical level. With minimal retraction of the dura medially, the posterior longitudinal ligament was identified and after meticulous hemostasis, a #11 surgical blade was used to incise the posterior longitudinal ligament. Extended fragmentectomy was performed. Significant amount of disk material was encountered as expected from the preoperative imaging of CT myelogram. Then, attention was brought to perform a foraminotomy at the right L4. At the end of the procedure, the nerve roots and the thecal sac was found to be free of any pressure phenomenon. After meticulous hemostasis and copious irrigation, the wound was carefully inspected and tubular retractor was removed. An 0 Vicryl suture was used to approximate the dorsal fascia while 2-0 inverted interrupted Vicryl suture was used to approximate the subcutaneous tissue. The skin was then covered with Dermabond. At the end of the procedure, the counts were reported to be correct. The patient remained hemodynamically stable throughout the case. She was then carefully turned supine, was extubated and was transferred to Recovery in excellent condition. Attention was paid in positioning and removal of the patient from the Simba frame to maintain the cervical spine in a neutral position and perfect alignment. Case was done with the assistance of surgical PA because of the complexity of the case. [id number]/[facility] #: [id number] MTDD
[2017-11-23] MEDS ORDERED: Levothyroxine TAB* 50 MCG TAB PO SCH (06:00)
--- NOTE | 2017-11-23 07:25 | PN ---
Progress Note - Progress Note Date of Service: 11/23/17 SOAP: Subjective: []No events ON. Tolerates po well, Ambulates, Voids. Preop rt LE pain almost resolved. Wants to go home. Objective: []VSS, wound s,c,d AAOx3, CHITO, CN II -XII grossly inact Motor 5/5 Sensory grossly intact to light touch. Assessment: []82 yof POD#1 Rt L4-5 MIS discectomy, laminectomy and foraminotomy. Plan: []Monitor VS, Neurochecks Encourage ambulation DC today if ok with PT, IM Appreciate IM consult. Full instructions given to patient. Abrahan Carrion MD
[2017-11-23 07:53] VITALS: BP 123/44
[2017-11-23] MEDS: Gabapentin CAP(*) 100 MG PO SCH (07:59)
[2017-11-23] MEDS: Carvedilol TAB* 25 MG PO SCH (08:00)
[2017-11-23] MEDS ORDERED: amLODIPine TAB* 5 MG PO SCH (09:00)
[2017-11-23] MEDS ORDERED: Hydrochlorothiazide TAB* 25 MG PO SCH (09:00)
[2017-11-23] MEDS ORDERED: Losartan TAB* 25 MG PO SCH ×2 (09:00)
[2017-11-23] MEDS ORDERED: Atorvastatin* 10 MG TAB PO SCH (09:00)
[2017-11-23] MEDS ORDERED: Potassium Chlor TAB* 10 MEQ TAB.ER PO SCH (09:00)
[2017-11-23] MEDS ORDERED: Spironolactone TAB* 25 MG PO SCH ×2 (09:00)
[2017-11-23] MEDS ORDERED: Omeprazole CAP* 20 MG PO SCH (09:00)
--- NOTE | 2017-12-04 10:41 | DS ---
DISCHARGE SUMMARY: DATE OF ADMISSION: 11/22/17 DATE OF DISCHARGE: 11/23/17 PROCEDURE: The patient underwent a right minimally invasive L4-L5 decompressive laminectomy with rig ht L4-L5 fragmentectomy and diskectomy, and right L4 and L5 extensive foraminotomies. SUMMARY: The patient is a very pleasant 82-year-old female with complaints of back pain radiating to the right lower extremity with weakness in the right lower extremity and decreased sensation. The p atient has multiple comorbidities while MRI revealed the evidence of stable L4-5 spondylolisthesis wi th significant right L4-5 neuroforaminal stenosis and herniated nucleus pulposus. After failing cons ervative treatment modalities, she was offered the option of surgical intervention for the above ment ioned procedure, which she underwent on 11/22/17. The patient tolerated the procedure well, was able to transfer to the floor and continuing to improve. Her preoperative right lower extremity pain almo st resolved. She was able to ambulate and tolerate the p.o. well. She was neurologically intact and then she was felt to be ready to be discharged home. She was able to get good pain control with p.o . pain medication. The patient was sent home with full instructions and a prescription for [place]. [id number]/[facility] #: [id number]
== END 2017-11-23 11:43 | disposition home or self-care (01) | DRG 519 ==
LOC: AA 05:41 → SSU 11:17
PROVIDERS: ADMIT Neurological Surgery; ATTEND Neurological Surgery
PROC: 01NB0ZZ Release Lumbar Nerve, Open Approach (ICD-10-PCS; 2017-11-22)
PROC: 0SB20ZZ Excision of Lumbar Vertebral Disc, Open Approach (ICD-10-PCS; principal; 2017-11-22 07:30)
DX: M47.26 Other spondylosis with radiculopathy, lumbar region (principal); I13.0 Hypertensive heart and chronic kidney disease with heart failure and stage 1 through stage 4 chronic kidney disease, or unspecified chronic kidney disease; E87.1 Hypo-osmolality and hyponatremia; M51.16 Intervertebral disc disorders with radiculopathy, lumbar region; M43.16 Spondylolisthesis, lumbar region; Z96.0 Presence of urogenital implants; I50.9 Heart failure, unspecified; E03.9 Hypothyroidism, unspecified; M11.20 Other chondrocalcinosis, unspecified site; M81.0 Age-related osteoporosis without current pathological fracture; N18.9 Chronic kidney disease, unspecified; K21.9 Gastro-esophageal reflux disease without esophagitis; Z88.6 Allergy status to analgesic agent; Z91.018 Allergy to other foods; Z88.8 Allergy status to other drugs, medicaments and biological substances; Z85.3 Personal history of malignant neoplasm of breast; Z91.030 Bee allergy status; Z95.0 Presence of cardiac pacemaker
CPT/HCPCS: 36415; 76001; 80048; A9270-GY; G8978-GP-CI; G8979-GP-CI; G8980-GP-CI; J0690; J1100; J2001; J2710; J3010

== ENCOUNTER → 2019-02-05 20:35 | Emergency (ER) | payer MEDICARE, BC ==
[~2019-02-05 20:35] MED LIST changes: -Buffered Lidocaine 0.9% SYRIN* 5 ML/SYR SYRINGE INTRADERM ONE; +diPHENhydraMINE PO* 25 MG PO ONE
--- OUTSIDE RECORDS SUMMARY | 2019-02-05 20:49 | XMS REPORT | Continuity of Care Document ---
:1935 External Reference #:[id number] Author Name Ponoam Villalba Care Team Providers Name Role Phone Bebe Mathew MD Primary Care Physician Unavailable Payers Date Identification Numbers Payment Provider Subscriber Effective: 1999 Policy Number: [id number] Medicare Tammy Kemp Arnulfo PayID: [id number] [address] [place] [address] Policy Number: [id number] [facility] Tammy Arredondo PayID: [id number] [address] [place] [address] Expires: 2013 Policy Number: [id number] [facility] Britney Chavez Arnulfo PayID: [id number] [address] [place] [address] Problems Active Problems Provider Date Osteoporosis Yonatan Huerta M.D. Onset: 04/15/2012 Chondrocalcinosis Yonatan Huerta M.D. Onset: 04/15/2012 Uric acid urolithiasis Yonatan Huerta M.D. Onset: 04/15/2012 Senile osteoporosis Yonatan Huerta M.D. Onset: 03/18/2014 Degenerative joint disease of hand Yonatan Huerta M.D. Onset: 03/18/2014 Multiple joint pain Yonatan Huerta M.D. Onset: 03/18/2014 Disorder of lumbar disc Yonatan Huerta M.D. 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 Onset: 12/15/2014 phosphate crystals Cardiomyopathy, unspecified Ica Pacer Schedule Onset: 04/28/2015 Kidney stone LILIYA Zepeda Onset: 05/04/2015 Chondrocalcinosis of knee joint Glynn East M.D. Onset: 09/09/2015 Lumbosacral spondylosis without Page Carrion MD Onset: 09/26/2017 myelopathy Lumbar spondylolisthesis Page Carrion MD Onset: 09/26/2017 Thoracic and lumbosacral neuritis Page Carrion MD Onset: 10/19/2017 Essential hypertension Richie Ya M.D., [facility], Onset: 11/12/2017 FASNIKUNJ Spinal stenosis of lumbar region Page Carrion MD Onset: 02/18/2018 Family History Date Family Member(s) Observation Comments General Heart Disease General Diabetes General Cancer Social History Type Date Description Comments Sex Unknown Marital Status Lives With Alone Occupation Retired [employer] ETOH Use Denies alcohol use Tobacco Use Start: Unknown Patient has never smoked Recreational Drug Use Denies Drug Use Smoking Status Reviewed: 02/03/19 Patient has never smoked Exercise Type/Frequency Does not exercise Exercise Type/Frequency Exercises regularly Allergies, Adverse Reactions, Alerts Active Allergies Reaction Severity Comments Date Percocet Vomit, Diarrhea 07/18/2011 Motrin Rash 07/18/2011 Bee Sting 03/27/2013 Rigo Inhibitors cough 10/27/2015 Angiotensin Receptor Blockers cough 10/27/2015 Medications Active Medications SIG Qnty Indications Ordering Provider Date Prolia 60 mg sc every 60mgml Z79.899 LILIYA Zepeda 11/17/2016 60mg/ml Solution 6 month M85.9 Coreg 1 tablets by 180tabs Richie Sol 10/11/2015 25mg Tablets mouth twice a Angelo Ya, day [facility], [facility] Vitamin D3 1 po qd M85.9 Ana Bills, 10/26/2014 1000Unit Capsules [facility] Amlodipine Besylate 2 by mouth every Unknown 5mg Tablets day Hydrocodone-Acetaminophen take 1 by mouth Unknown 7.5-325mg every 8 hours Tablets for severe headache. Protonix 1 by mouth every Unknown 40mg Tablets DR day Meloxicam take one tab Unknown 7.5mg Tablets twice daily as needed for pain, avoid other nsaids Potassium Chloride Mary Lou ER 1 by mouth every Unknown 20Meq day Tablets ER Levothyroxine Sodium Unknown 50mcg Tablets Hydrochlorothiazide 1/2 Tab by mouth Unknown 25mg Tablets every day Lactulose 30 mls once a Unknown 20GM/30ML Solution day Zyrtec Allergy 1 by mouth every Unknown 10mg Tablets day Atorvastatin Calcium 1 by mouth every 90tabs Unknown 10mg Tablets day Spironolactone 2 po qd 90tabs Unknown 25mg Tablets Epipen 2-Skip sc prn 2units Unknown 0.3mg/0.3ML Device History Medications Hydrocodone-Acetaminophen 1 tab by 30taperi Abel 02/05/2018 - 5-325mg Tablets mouth every MD Sheyla 02/11/2018 6-8 h as needed pain Hydrocodone-Acetaminophen 1 tab by 30tabs Page 01/26/2018 - 5-325mg Tablets mouth every MD Sheyla 02/11/2018 6-8 h as needed pain Hydrocodone-Acetaminophen 1 tab by 60tabs Vikash Barraza 01/18/2018 - 5-325mg Tablets mouth every M.D. 12/30/2018 6-8 h as needed pain [place] 1 by mouth 30tabs Page 12/12/2017 - 5-325mg Tablets every 4-6 h MD Sheyla 02/11/2018 as needed [place] 1 by mouth 30tabs Page 11/28/2017 - 5-325mg Tablets every 6 h as MD Sheyla 01/09/2018 needed [place] take 1 tab by 30tabs Page 11/23/2017 - 5-325mg Tablets mouth every MD Sheyla 01/09/2018 4-6 hours as needed for pain. Calcium & Vitamin D3 1 po bid 30units Ana Bills, 10/26/2014 - [facility] [employer] 10/26/2014 Liquid Lidoderm topical 10 30units 722.9 Yonatan Huerta, 03/18/2014 - 5% Patches hours 3 M.D. 04/28/2014 [place] For Forteo use I needles 28units Yonatan Huerta, 09/06/2011 - 31G 5 mm daily with M.D. 09/15/2013 forteo pen as directed Forteo 20 mcg sc qd 1pen Yonaatn Deanna, 08/31/2011 - 600mcg/2.4ML Solution M.D. 09/15/2013 Vitamin C SR 2 daily Unknown - 500mg Capsules ER 04/28/2014 Vitamin D-1000 1 po qd 90tabs Unknown - 1000Unit Tablets 12/23/2014 Nitrostat one sl q5min 25tabs Richie Sol - 0.3mg Tablets Sub up to 3 doses Angelo Ya, 10/30/2017 as needed FACC, FASNIKUNJ replace every 12 months Hydrocodone-Acetaminophen 1 tab q 8 hrs Unknown - 5-325mg Tablets prn (rare 10/30/2017 use) Carvedilol 1 by mouth 60tabs Unknown - 25mg Tablets once a day 04/20/2014 Exemestane one tab by 30tabs Unknown - 25mg Tablets mouth every 10/03/2016 morning Losartan Potassium 1 by mouth 90tabs Unknown - 50mg Tablets every day 10/10/2015 Ocuvite 1 by mouth Unknown - Tablets every day 10/26/2014 Trazodone HCL 2 tablet at Unknown - 50mg Tablets bedtime as 12/14/2014 needed Potassium Chloride ER 1 by mouth Unknown - 10Meq Capsules ER every day 10/30/2017 Belladonna-Phenobarbital prn Unknown - 11/17/2016 Stool Softener 1 by mouth Unknown - 100mg Capsules daily prn 10/03/2016 Nortriptyline HCL 1 by mouth Unknown - 50mg Capsules every night 10/30/2017 at bedtime Famotidine one tab daily Cardina, - 40mg Tablets PO MD Jose Daniel 10/03/2016 Relafen 1 tab po Unknown - 750mg Tablets twice daily 10/30/2017 Losartan Potassium 1 by mouth Unknown - 50mg Tablets every day 11/11/2017 Nabumetone 1 po bid Unknown - 25mg Tablets 10/03/2016 Nortriptyline HCL take one Unknown - 25mg Capsules capsules by 10/30/2017 mouth at bedtime Tramadol HCL 1-2 tablets Unknown - 50mg Tablets every 6 hours 09/26/2017 as needed Amlodipine Besylate 1 by mouth Unknown - Tablets every day 01/28/2019 Tramadol HCL take 2 Unknown - 50mg Tablets tablets every 01/09/2018 8 hours if needed for pain maximum daily dose of (pt takes 1 every night) Gabapentin 1 tab 3 times Unknown - 100mg Capsules a day 03/01/2018 Acid Control Maximum Strength Unknown - 20mg 12/14/2014 Tablets Actonel q week 3Month Unknown - 35mg Tablets 09/15/2013 Amlodipine Besylate 1 po qd 90tabs Unknown - 10mg Tablets 03/22/2017 Anexsia 4 times daily Unknown - 7.5-650mg Tablets prn 10/09/2013 Aromasin 1 po qd 90tabs Unknown - 25mg Tablets 03/18/2014 Aspir-81 1 po qd 90tabs Unknown - 81mg Tablets 10/30/2017 Calcium + D 1 po bid 30tabs Unknown - [id number] Tablets 10/26/2014 Celexa 1 po qd Unknown - 20mg Tablets 03/18/2014 Cholecalciferol Unknown - Crystals 03/18/2014 Coreg 25mg 1 po daily Unknown - Tablets 10/11/2015 Famotidine 1 po qhs Unknown - 10mg Tablets 12/14/2014 Hydrochlorothiazide 1/2 tab po 90tabs Unknown - 12.5mg Tablets bid 09/08/2015 Levothroid 1 po qd 90tabs Unknown - 50mcg Tablets 10/30/2017 Lipitor 1 po qhs 90tabs Unknown - 10mg Tablets 10/26/2014 Magnesium 1 po qd Unknown - 250mg Tablets 10/26/2014 Multi For Her 1 po qd Unknown - Capsules 05/04/2015 Nabumetone 1 po bid 60tabs Unknown - 750mg Tablets 10/10/2015 Nortriptyline HCL 2 po qhs 180caps Unknown - 25mg Capsules 04/28/2014 Nortriptyline HCL 1 po q hs 30caps Unknown - 50mg Capsules 10/03/2016 Phenobarbital 1 po qid prn 120tabs Unknown - 30mg Tablets 08/08/2015 Klor-Con M10 1 po qd 30tabs Unknown - 10Meq Tablets ER 05/04/2015 Protonix 1 po hs 90tabs Unknown - 40mg Tablets 01/18/2018 Medications Administered in Office Medication SIG Qnty Indications Ordering Provider Date Triamcinolone (Kenalog) Bryson Wolfe M.D. 02/03/2019 Injection Prolia Injection, Denosumab, Budofia Sanju, [employer] 01/28/2019 1MG Injection Prolia Injection, Denosumab, Nurse Visit 06/19/2018 1MG Injection Prolia Injection, Denosumab, Budofia Sanju, [employer] 11/30/2017 1MG Injection Inj, Regadenoson, 0.1 MG Richie Ya M.D., 11/07/2017 Injection FAC, [facility] Technetium TC 99M Richie Ya M.D., 11/07/2017 Tetrofosmin, Per Unit Dose Up [facility] To 40 Millicuries Injection Prolia Injection, Denosumab, Zsofia Sanju, [employer]ER 05/22/2017 1MG Injection Prolia Injection, Denosumab, Zsofia Sanju, [employer] 11/17/2016 1MG Injection Prolia Injection, Denosumab, Zsofia Sanju, [employer] 05/19/2016 1MG Injection Prolia Injection, Denosumab, Nurse Visit 11/17/2015 1MG Injection Inj, Regadenoson, 0.1 MG Richie Ya M.D., 10/07/2015 Injection FAC, [facility] Technetium TC 99M Richie Ya M.D., 10/07/2015 Tetrofosmin, Per Unit Dose Up FACC, FASNC To 40 Millicuries Injection Prolia Injection, Denosumab, Nurse Visit 02/25/2015 1MG Injection Prolia Injection, Denosumab, Nurse Visit 05/21/2014 1MG Injection Prolia Injection, Denosumab, Nurse Visit 11/18/2013 1MG Injection Inj, Regadenoson, 0.1 MG Richie Ya M.D., 11/25/2012 Injection [facility], [facility] Technetium TC 99M Richie Ya M.D., 11/25/2012 Tetrofosmin, Per Unit Dose Up FACC, FASNC To 40 Millicuries Injection Vital Signs Date Vital Result Comment 02/03/2019 11:37am Height 60 inches 5'0" Weight 108.00 lb Heart Rate 71 /min BP Systolic Sitting 124 mmHg BP Diastolic Sitting 64 mmHg Pain Level 8 O2 % BldC Oximetry 98 % BMI (Body Mass Index) 21.1 kg/m2 01/28/2019 1:32pm Height 60 inches 5'0" Weight 105.38 lb Heart Rate 62 /min BP Systolic 114 mmHg BP Diastolic 64 mmHg Body Temperature 97.1 F O2 % BldC Oximetry 98 % BMI (Body Mass Index) 20.6 kg/m2 01/28/2019 1:20pm Height 60 inches 5'0" Weight 105.12 lb Heart Rate 64 /min BP Systolic 114 mmHg BP Diastolic 64 mmHg Body Temperature 97.1 F O2 % BldC Oximetry 98 % BMI (Body Mass Index) 20.5 kg/m2 12/31/2018 1:34pm Height 60 inches 5'0" Weight 108.00 lb no shoes Heart Rate 68 /min BP Systolic Sitting 110 mmHg lue reg cuff BP Diastolic Sitting 60 mmHg lue reg cuff BP Systolic Standing 116 mmHg lue reg cuff BP Diastolic Standing 60 mmHg lue reg cuff Respiratory Rate 12 /min BMI (Body Mass Index) 21.1 kg/m2 06/04/2018 9:36am Height 60 inches 5'0" Weight 108.00 lb Heart Rate 67 /min BP Systolic 116 mmHg BP Diastolic 62 mmHg Pain Level 6 O2 % BldC Oximetry 98 % BMI (Body Mass Index) 21.1 kg/m2 04/19/2018 9:44am Height 60 inches 5'0" Weight 110.00 lb Heart Rate 64 /min BP Systolic 120 mmHg BP Diastolic 62 mmHg Pain Level 4 BMI (Body Mass Index) 21.5 kg/m2 03/01/2018 11:54am Height 60 inches 5'0" Weight 110.00 lb BP Systolic Standing 140 mmHg BP Diastolic Standing 70 mmHg Pain Level 7 BMI (Body Mass Index) 21.5 kg/m2 02/18/2018 1:06pm Height 60 inches 5'0" Weight 110.00 lb Heart Rate 64 /min BP Systolic Sitting 130 mmHg BP Diastolic Sitting 60 mmHg Respiratory Rate 16 /min Pain Level 8 BMI (Body Mass Index) 21.5 kg/m2 01/09/2018 3:16pm Height 60 inches 5'0" Weight 115.00 lb BP Systolic Sitting 132 mmHg BP Diastolic Sitting 82 mmHg Pain Level 8 BMI (Body Mass Index) 22.5 kg/m2 12/17/2017 3:12pm Weight 115.75 lb Heart Rate 64 /min BP Systolic 162 mmHg BP Diastolic 60 mmHg Body Temperature 96.5 F Pain Level 9 11/30/2017 9:41am Height 60 inches 5'0" Weight 116.00 lb Heart Rate 54 /min BP Systolic Sitting 122 mmHg BP Diastolic Sitting 58 mmHg Pain Level 9 O2 % BldC Oximetry 96 % BMI (Body Mass Index) 22.7 kg/m2 11/28/2017 10:18am Height 60 inches 5'0" Weight 113.00 lb BP Systolic Sitting 136 mmHg BP Diastolic Sitting 80 mmHg Body Temperature 98.4 F BMI (Body Mass Index) 22.1 kg/m2 11/13/2017 11:13am Height 60 inches 5'0" Weight 113.00 lb BP Systolic Sitting 128 mmHg BP Diastolic Sitting 60 mmHg Pain Level 8 BMI (Body Mass Index) 22.1 kg/m2 11/12/2017 12:39pm Height 60 inches 5'0" Weight 113.00 lb Heart Rate 62 /min BP Systolic Sitting 134 mmHg at recent echo 10/24/2017 BP Diastolic Sitting 82 mmHg at recent echo 10/24/2017 Respiratory Rate 16 /min BMI (Body Mass Index) 22.1 kg/m2 Ejection Fraction 40-45% echo 10/24/2017 10/19/2017 10:26am Height 60 inches 5'0" Weight 116.00 lb BP Systolic Sitting 118 mmHg BP Diastolic Sitting 80 mmHg Pain Level 8 BMI (Body Mass Index) 22.7 kg/m2 09/26/2017 10:59am Height 60 inches 5'0" Weight 116.00 lb Heart Rate 76 /min BP Systolic Sitting 130 mmHg BP Diastolic Sitting 62 mmHg Pain Level 7 BMI (Body Mass Index) 22.7 kg/m2 05/22/2017 10:31am Height 60 inches 5'0" Weight 116.00 lb w/o shoes Heart Rate 68 /min reg BP Systolic Sitting 130 mmHg Rue, reg cuff BP Diastolic Sitting 50 mmHg Rue, reg cuff Respiratory Rate 16 /min Pain Level 8 back BMI (Body Mass Index) 22.7 kg/m2 11/17/2016 10:50am Height 60 inches 5'0" Weight 123.00 lb Heart Rate 75 /min BP Systolic Sitting 139 mmHg BP Diastolic Sitting 63 mmHg Body Temperature 97.0 F Pain Level 1 BMI (Body Mass Index) 24.0 kg/m2 10/04/2016 10:45am Height 60 inches 5'0" Weight 123.00 lb w/boots Heart Rate 82 /min BP Systolic Sitting 158 mmHg LA reg cuff BP Diastolic Sitting 64 mmHg LA reg cuff BP Systolic Standing 144 mmHg LA reg cuff BP Diastolic Standing 58 mmHg LA reg cuff BMI (Body Mass Index) 24.0 kg/m2 Ejection Fraction 40-45% Echo 09/28/15 05/19/2016 10:53am Height 60 inches 5'0" Weight 124.00 lb Heart Rate 72 /min BP Systolic Sitting 108 mmHg BP Diastolic Sitting 60 mmHg Body Temperature 97.0 F Pain Level 1 BMI (Body Mass Index) 24.2 kg/m2 11/03/2015 9:16am Height 60 inches 5'0" Weight 120.00 lb Heart Rate 80 /min BP Systolic Sitting 142 mmHg BP Diastolic Sitting 70 mmHg Respiratory Rate 14 /min Pain Level 2 BMI (Body Mass Index) 23.4 kg/m2 10/11/2015 10:24am Height 60 inches 5'0" Weight 121.75 lb w/shoes Heart Rate 80 /min BP Systolic Sitting 136 mmHg LA reg cuff BP Diastolic Sitting 64 mmHg LA reg cuff BP Systolic Standing 138 mmHg LA reg cuff BP Diastolic Standing 60 mmHg LA reg cuff BMI (Body Mass Index) 23.8 kg/m2 Ejection Fraction 40-45 echo 09/28/15 09/09/2015 9:35am Height 60 inches 5'0" Weight 119.00 lb Heart Rate 78 /min Pain Level 7 at its worst BMI (Body Mass Index) 23.2 kg/m2 05/04/2015 10:47am Height 60 inches 5'0" Weight 119.00 lb Heart Rate 68 /min BP Systolic Sitting 150 mmHg BP Diastolic Sitting 64 mmHg Pain Level 3 BMI (Body Mass Index) 23.2 kg/m2 12/25/2014 1:20pm Height 60 inches 5'0" Weight 118.31 lb no shoes Heart Rate 76 /min BP Systolic Sitting 148 mmHg LA, reg cuff BP Diastolic Sitting 72 mmHg LA, reg cuff BP Systolic Standing 140 mmHg LA BP Diastolic Standing 66 mmHg LA Respiratory Rate 14 /min BMI (Body Mass Index) 23.1 kg/m2 12/15/2014 9:30am Height 60 inches 5'0" Weight 112.00 lb Pain Level 3 BMI (Body Mass Index) 21.9 kg/m2 10/26/2014 1:04pm Height 60 inches 5'0" Weight 116.50 lb Heart Rate 74 /min BP Systolic Sitting 168 mmHg BP Diastolic Sitting 70 mmHg Pain Level 2 BMI (Body Mass Index) 22.7 kg/m2 04/29/2014 1:33pm Height 60 inches 5'0" Weight 112.25 lb Heart Rate 80 /min BP Systolic 156 mmHg recheck, reg, left BP Diastolic 68 mmHg recheck, reg, left BP Systolic Sitting 190 mmHg reg, left BP Diastolic Sitting 82 mmHg reg, left BP Systolic Lying Down 158 mmHg reg, right BP Diastolic Lying Down 70 mmHg reg, right BMI (Body Mass Index) 21.9 kg/m2 04/21/2014 1:14pm Height 60 inches 5'0" Weight 116.00 lb Heart Rate 68 /min BP Systolic Sitting 150 mmHg BP Diastolic Sitting 62 mmHg Pain Level 2 BMI (Body Mass Index) 22.7 kg/m2 03/18/2014 12:56pm Height 60 inches 5'0" Weight 114.50 lb Heart Rate 68 /min BP Systolic Sitting 150 mmHg BP Diastolic Sitting 70 mmHg Pain Level 2 BMI (Body Mass Index) 22.4 kg/m2 12/10/2013 11:09am Height 60 inches 5'0" Weight 109.00 lb Heart Rate 71 /min BP Systolic 151 mmHg BP Diastolic 86 mmHg BMI (Body Mass Index) 21.3 kg/m2 11/10/2013 8:47am Height 60 inches 5'0" Weight 106.00 lb Heart Rate 79 /min BP Systolic 123 mmHg BP Diastolic 67 mmHg BMI (Body Mass Index) 20.7 kg/m2 10/27/2013 8:07am Height 60 inches 5'0" Weight 111.00 lb Heart Rate 70 /min BP Systolic 124 mmHg BP Diastolic 66 mmHg BMI (Body Mass Index) 21.7 kg/m2 10/08/2013 4:35pm Height 62 inches 5'2" Weight 112.00 lb Heart Rate 78 /min BP Systolic 148 mmHg BP Diastolic 69 mmHg BMI (Body Mass Index) 20.5 kg/m2 09/15/2013 12:51pm Height 62 inches 5'2" Weight 111.00 lb Heart Rate 79 /min BP Systolic Sitting 122 mmHg BP Diastolic Sitting 56 mmHg BMI (Body Mass Index) 20.3 kg/m2 04/16/2013 1:08pm Height 62 inches 5'2" Weight 127.00 lb Heart Rate 64 /min BP Systolic Sitting 104 mmHg BP Diastolic Sitting 56 mmHg BMI (Body Mass Index) 23.2 kg/m2 10/15/2012 1:40pm Height 62 inches 5'2" Weight 124.00 lb Heart Rate 77 /min BP Systolic Sitting 130 mmHg BP Diastolic Sitting 67 mmHg BMI (Body Mass Index) 22.7 kg/m2 04/15/2012 10:54am Height 62 inches 5'2" Weight 123.00 lb Heart Rate 78 /min BP Systolic Sitting 130 mmHg BP Diastolic Sitting 72 mmHg BMI (Body Mass Index) 22.5 kg/m2 12/15/2011 10:54am Height 62 inches 5'2" Weight 122.00 lb Heart Rate 80 /min BP Systolic Sitting 124 mmHg BP Diastolic Sitting 71 mmHg BMI (Body Mass Index) 22.3 kg/m2 08/16/2011 3:32pm Height 62 inches 5'2" Weight 125.00 lb Heart Rate 78 /min BP Systolic Sitting 126 mmHg BP Diastolic Sitting 71 mmHg BMI (Body Mass Index) 22.9 kg/m2 07/18/2011 3:26pm Height 62 inches 5'2" Weight 126.00 lb Heart Rate 74 /min BP Systolic Sitting 103 mmHg BMI (Body Mass Index) 23.0 kg/m2 Results Test Date Facility Test Result H/L Range Note Laboratory test 06/19/2018 [facility] Vitamin D 47.2 ng/mL N 20-[address](Oh) [place] [address] [phone] Urinalysis Profile 11/15/2017 [facility] Urine Color Straw [address] [place] [address] [phone] Urine Appearance Clear Urine Specific [place] 1.004 Low 1.010-1.030 Urine pH 6.0 N 5-9 Urine Urobilinogen Negative Negative Urine Ketones Negative Negative Urine Protein Negative Negative Urine Leukocytes Negative Negative Urine Blood Negative Negative Urine Nitrite Negative Negative Urine Bilirubin Negative Negative Urine Glucose Negative Negative Type & Screen 11/15/2017 [facility] Patient Blood Type O Negative [address] [place] [address] [phone] Antibody Screen NEGATIVE Laboratory test 11/15/2017 [facility] TSH (Thyroid 2.44 N 0.34 -5.[address] [place] [address] Stim Horm) mcIU/[place] [address] [phone] Basic Metabolic 11/15/2017 [facility] Sodium 126 mmol/L Low 139-[address] [place] [address] [phone] Potassium 4.6 mmol/L N 3.5-5.0 Chloride 94 mmol/L Low 101-111 Co2 Carbon Dioxide 25 mmol/L N 22-32 Anion Gap 7 mmol/L N 2-11 Glucose 93 mg/dL N 70-100 Blood Urea Nitrogen 18 mg/dL N 6-24 Creatinine 1.03 mg/dL High 0.51-0.95 BUN/Creatinine Ratio 17.5 N 8-20 Calcium 9.2 mg/dL N 8.6-10.3 Egfr Non- 51.3 >60 Egfr 66.0 >60 1 CBC No Diff 11/15/2017 [facility] White Blood 7.1 10^3/uL N 3.5-10.[address] [place] [address] [phone] Red Blood Count 3.53 10^6/uL Low 4.0-5.4 Hemoglobin 10.4 g/dL Low 12.0-16.0 Hematocrit 30 % Low 35-47 Mean Corpuscular Volume 86 fL N 80-97 Mean Corpuscular Hemoglobin 30 pg N 27-31 Mean Corpuscular HGB Conc 34 g/dL N 31-36 Red Cell Distribution Width 16 % High 10.5-15 Platelet Count 290 10^3/uL N 150-450 Mean Platelet Volume 7.4 um3 N 7.4-10.4 Laboratory test 11/15/2017 [facility] Partial 30.0 seconds N 26.0-36.[address] [place] [address] PTT [phone] Inr/Protime 11/15/2017 [facility] Inr 0.99 N 0.77-1.[address] [place] [address] [phone] Platelet Count 10/05/2017 [facility] Platelet 447 10^3/uL N 150-[address] [place] [address] [phone] Mean Platelet Volume 7.3 um3 Low 7.4-10.4 Laboratory test 10/05/2017 [facility] Partial 27.4 N 26.0- 36.[address] [place] [address] PTT [phone] Inr/Protime 10/05/2017 [facility] Inr 1.07 High 0.77-1.[address] [place] [address] [phone] Laboratory test 11/17/2016 [facility] Vitamin D 47.4 ng/mL N 30-[address] Total 25(Oh) [place], [place] [id number] [phone] Basic Metabolic 11/17/2016 [facility] Sodium 131 mmol/L Low 133-[address] [place] [address] [phone] Potassium 4.6 mmol/L N 3.5-5.0 Chloride 98 mmol/L Low 101-111 Co2 Carbon Dioxide 27 mmol/L N 22-32 Anion Gap 6 mmol/L N 2-11 Glucose 93 mg/dL N 70-100 Blood Urea Nitrogen 22 mg/dL N 6-24 Creatinine 1.23 mg/dL High 0.51-0.95 BUN/Creatinine Ratio 17.9 N 8-20 Calcium 8.9 mg/dL N 8.6-10.3 Egfr Non- 41.9 N >60 Egfr 53.9 N >60 2 CBC Auto Diff 08/30/2016 [facility] White Blood 7.6 10^3/uL N 3.5-10.[address] [place] [address] [phone] Red Blood Count 3.89 10^6/uL Low 4.0-5.4 Hemoglobin 11.7 g/dL Low 12.0-16.0 Hematocrit 35 % N 35-47 Mean Corpuscular Volume 89 fL N 80-97 Mean Corpuscular Hemoglobin 30 pg N 27-31 Mean Corpuscular HGB Conc 34 g/dL N 31-36 Red Cell Distribution Width 14 % N 10.5-15 Platelet Count 312 10^3/uL N 150-450 Mean Platelet Volume 8 um3 N 7.4-10.4 Abs Neutrophils 4.7 10^3/uL N 1.5-7.7 Abs Lymphocytes 1.8 10^3/uL N 1.0-4.8 Abs Monocytes 0.6 10^3/uL N 0-0.8 Abs Eosinophils 0.3 10^3/uL N 0-0.6 Abs Basophils 0.1 10^3/uL N 0-0.2 Abs Nucleated RBC 0 10^3/uL N Granulocyte % 62.2 % N 38-83 Lymphocyte % 23.8 % Low 25-47 Monocyte % 8.4 % N 1-9 Eosinophil % 4.4 % N 0-6 Basophil % 1.2 % N 0-2 Nucleated Red Blood Cells % 0 N Comp Metabolic Panel 08/30/2016 [facility] Sodium 129 mmol/L Low 133-[address] [place] [address] [phone] Potassium 4.3 mmol/L N 3.5-5.0 Chloride 95 mmol/L Low 101-111 Co2 Carbon Dioxide 29 mmol/L N 22-32 Anion Gap 5 mmol/L N 2-11 Glucose 83 mg/dL N 70-100 Blood Urea Nitrogen 19 mg/dL N 6-24 Creatinine 1.10 mg/dL High 0.51-0.95 BUN/Creatinine Ratio 17.3 N 8-20 Calcium 8.9 mg/dL N 8.6-10.3 Total Protein 6.2 g/dL Low 6.4-8.9 Albumin 3.9 g/dL N 3.2-5.2 Globulin 2.3 g/dL N 2-4 Albumin/Globulin Ratio 1.7 N 1-3 Total Bilirubin 0.40 mg/dL N 0.2-1.0 Alkaline Phosphatase 50 U/L N 34-104 Alt 15 U/L N 7-52 Ast 20 U/L N 13-39 Egfr Non- 47.7 N >60 Egfr 61.3 N >60 3 Laboratory test 05/19/2016 [facility] Vitamin D 32.7 ng/mL N 30-[address] Total [address](Oh) [place] [address] [phone] Comp Metabolic 04/21/2016 [facility] Sodium 132 mmol/L Low 133 -145 [address] [place] [address] [phone] Potassium 4.2 mmol/L N 3.5-5.0 Chloride 100 mmol/L Low 101-111 Co2 Carbon Dioxide 26 mmol/L N 22-32 Anion Gap 6 mmol/L N 2-11 Glucose 84 mg/dL N 70-100 Blood Urea Nitrogen 17 mg/dL N 6-24 Creatinine 1.18 mg/dL High 0.51-0.95 BUN/Creatinine Ratio 14.4 N 8-20 Calcium 8.9 mg/dL N 8.6-10.3 Total Protein 6.0 g/dL Low 6.4-8.9 Albumin 3.9 g/dL N 3.2-5.2 Globulin 2.1 g/dL N 2-4 Albumin/Globulin Ratio 1.9 N 1-3 Total Bilirubin 0.40 mg/dL N 0.2-1.0 Alkaline Phosphatase 46 U/L N 34-104 Alt 15 U/L N 7-52 Ast 19 U/L N 13-39 Egfr Non- 44.0 N >60 Egfr 56.5 N >60 5 Laboratory test 04/21/2016 [facility] TSH (Thyroid 2.87 N 0.34 -5.60 [address] Stim Horm) mcIU/[place] [address] [phone] Laboratory test 11/03/2015 [facility] Vitamin D 39.1 ng/mL N 30-[address](Oh) [place] [address] [phone] Laboratory test 05/07/2015 [facility] Vitamin D 49.3 ng/mL N 30-[address] Total 25(Oh) [place] [address] [phone] Urine Culture And 10/26/2014 [facility] Urine (SEE NOTE) [address] [place] [address] [phone] Vitamin D, 25 10/26/2014 [facility] 25-Hydroxy <4.0 ng/mL N Hydroxy [address] Vitamin [place] [address] [phone] 25-Hydroxy Vitamin D3 45 ng/mL N 25-Hydroxy Vitamin D Total 45 ng/mL N 8 Laboratory test 10/26/2014 [facility] Erythrocyte Sed 11 mm/Hr N 0-[address] [place] [address] [phone] C Reactive Protein 3.09 mg/L N < 5.00 9 Comp Metabolic Panel 10/26/2014 [facility] Sodium 128 mmol/L Low 133-[address] [place] [address] [phone] Potassium 3.7 mmol/L N 3.5-5.0 Chloride 95 mmol/L Low 101-111 Co2 Carbon Dioxide 26 mmol/L N 22-32 Anion Gap 7 mmol/L N 2-11 Glucose 89 mg/dL N 70-100 Blood Urea Nitrogen 20 mg/dL N 6-24 Creatinine 0.98 mg/dL High 0.51-0.95 BUN/Creatinine Ratio 20.4 High 8-20 Calcium 9.0 mg/dL N 8.6-10.3 Total Protein 6.4 g/dL N 6.4-8.9 Albumin 4.3 g/dL N 3.2-5.2 Globulin 2.1 g/dL N 2-4 Albumin/Globulin Ratio 2.0 N 1-3 Total Bilirubin 0.40 mg/dL N 0.2-1.0 Alkaline Phosphatase 50 U/L N 34-104 Alt 10 U/L N 7-52 Ast 16 U/L N 13-39 Egfr Non- 54.7 N >60 Egfr 70.4 N >60 10 Urinalysis Profile 10/26/2014 [facility] Urine Color Yellow N [address] [place] [address] [phone] Urine Appearance Cloudy N Urine Specific [place] 1.014 N 1.010-1.030 Urine pH 6.0 N 5-9 Urine Urobilinogen Negative N Negative Urine Ketones Trace Abnormal Negative Urine Protein Negative N Negative Urine Leukocytes 3+ Abnormal Negative Urine Blood Negative N Negative * * Abnormal Negative 11 Urine Nitrite Negative N Negative Urine Bilirubin Negative N Negative Urine Glucose Negative N Negative Urine White Blood Cell 3+(>20/hpf) Abnormal Absent Urine Red Blood Cell Trace(0-2/hpf) N Absent Urine Bacteria Absent N Absent Urine Squamous Epithelial Cell Present Abnormal Absent CBC Auto Diff 10/26/2014 [facility] White Blood 9.3 10^3/uL N 4.8-10.[address] [place] [address] [phone] Red Blood Count 3.90 10^6/uL Low 4.0-5.4 Hemoglobin 12.3 g/dL N 12.0-16.0 Hematocrit 36 % N 35-47 Mean Corpuscular Volume 92 fL N 80-97 Mean Corpuscular Hemoglobin 32 pg High 27-31 Mean Corpuscular HGB Conc 34 g/dL N 31-36 Red Cell Distribution Width 14 % N 10.5-15 Platelet Count 281 10^3/uL N 150-450 Mean Platelet Volume 8 um3 N 7.4-10.4 Abs Neutrophils 7.0 10^3/uL N 1.5-7.7 Abs Lymphocytes 1.5 10^3/uL N 1.0-4.8 Abs Monocytes 0.5 10^3/uL N 0-0.8 Abs Eosinophils 0.1 10^3/uL N 0-0.6 Abs Basophils 0.1 10^3/uL N 0-0.2 Abs Nucleated RBC 0 10^3/uL N Granulocyte % 75.8 % N 38-83 Lymphocyte % 15.9 % Low 25-47 Monocyte % 5.7 % N 1-9 Eosinophil % 1.6 % N 0-6 Basophil % 1.0 % N 0-2 Nucleated Red Blood Cells % 0 N Laboratory test 07/14/2014 [facility] TSH (Thyroid 4.48 N 0.34 -5.60 [address] Stimulating Horm) IU/[place] [address] [phone] Lipid Profile 07/14/2014 [facility] Triglycerides 88 mg/dL N 13 (Trig/Chol/HDL) [address] [place] [address] [phone] Cholesterol 160 mg/dL N 14 HDL Cholesterol 63.9 mg/dL N 15 LDL Cholesterol 79 mg/dL N 16 Laboratory test 03/26/2014 [facility] Rheumatoid <15 IU/mL N < 15 [address] [place] [address] [phone] CBC Auto Diff 03/26/2014 [facility] White Blood 8.2 N 4.8- 10.[address] Count 10^3/[place] [address] [phone] Red Blood Count 3.72 10^6/uL Low 4.0-5.4 Hemoglobin 11.6 g/dL Low 12.0-16.0 Hematocrit 34 % Low 35-47 Mean Corpuscular Volume 90 fL N 80-97 Mean Corpuscular Hemoglobin 31 pg N 27-31 Mean Corpuscular HGB Conc 35 g/dL N 31-36 Red Cell Distribution Width 14 % N 10.5-15 Platelet Count 264 10^3/uL N 150-450 Mean Platelet Volume 7 um3 Low 7.4-10.4 Abs Neutrophils 6.2 10^3/uL N 1.5-7.7 Abs Lymphocytes 1.3 10^3/uL N 1.0-4.8 Abs Monocytes 0.6 10^3/uL N 0-0.8 Abs Eosinophils 0.1 10^3/uL N 0-0.6 Abs Basophils 0.1 10^3/uL N 0-0.2 Abs Nucleated RBC 0 10^3/uL N Granulocyte % 75.2 % N 38-83 Lymphocyte % 15.4 % Low 25-47 Monocyte % 7.3 % N 1-9 Eosinophil % 1.5 % N 0-6 Basophil % 0.6 % N 0-2 Nucleated Red Blood Cells % 0 N Comp Metabolic Panel 03/26/2014 [facility] Sodium 125 mmol/L Low 133-[address] [place] [address] [phone] Potassium 4.0 mmol/L N 3.7-5.6 Chloride 92 mmol/L Low 101-111 Co2 Carbon Dioxide 28 mmol/L N 22-32 Anion Gap 5 mmol/L N 2-11 Glucose 88 mg/dL N 70-100 Blood Urea Nitrogen 16 mg/dL N 6-24 Creatinine 0.91 mg/dL N 0.51-0.95 BUN/Creatinine Ratio 17.6 N 8-20 Calcium 8.9 mg/dL N 8.6-10.3 Total Protein 6.6 g/dL N 6.4-8.9 Albumin 4.1 g/dL N 3.2-5.2 Globulin 2.5 g/dL N 2-4 Albumin/Globulin Ratio 1.6 N 1-3 Total Bilirubin 0.40 mg/dL N 0.2-1.0 Alkaline Phosphatase 69 U/L N 34-104 Alt 11 U/L N 7-52 Ast 17 U/L N 13-39 Egfr Non- 59.6 N >60 Egfr 76.7 N >60 18 Laboratory test 03/26/2014 [facility] C Reactive 5.10 mg/L High < 5.00 [address] [place] [address] [phone] Cyclic Citrullinated Pept IgG <15.6 U N 20 Erythrocyte Sed Rate 16 mm/Hr N 0-40 Laboratory test finding 12/31/2013 [facility] T4 9.78 g/dL N 6.09-12.[address] [place] [address] [phone] TSH (Thyroid Stimulating Horm) 2.90 IU/mL N 0.34-5.60 Vitamin D 1,25-Dihydroxy 66 pg/mL N 18-78 21 CBC Auto 11/18/2013 [facility] White Blood 12.4 10^3/uL High 4.8-10.[address] [place] [address] [phone] Red Blood Count 3.53 10^6/uL Low 4.0-5.4 Hemoglobin 10.9 g/dL Low 12.0-16.0 Hematocrit 32 % Low 35-47 Mean Corpuscular Volume 90 fL N 80-97 Mean Corpuscular Hemoglobin 31 pg N 27-31 Mean Corpuscular HGB Conc 34 g/dL N 31-36 Red Cell Distribution Width 14 % N 10.5-15 Platelet Count 293 10^3/uL N 150-450 Mean Platelet Volume 8 um3 N 7.4-10.4 Abs Neutrophils 9.5 10^3/uL High 1.5-7.7 Abs Lymphocytes 1.7 10^3/uL N 1.0-4.8 Abs Monocytes 0.7 10^3/uL N 0-0.8 Abs Eosinophils 0.4 10^3/uL N 0-0.6 Abs Basophils 0.1 10^3/uL N 0-0.2 Abs Nucleated RBC 0 10^3/uL N Granulocyte % 76.3 % N 38-83 Lymphocyte % 13.7 % Low 25-47 Monocyte % 5.8 % N 1-9 Eosinophil % 3.2 % N 0-6 Basophil % 1.0 % N 0-2 Nucleated Red Blood Cells % 0 N Comp Metabolic Panel 11/18/2013 [facility] Sodium 133 mmol/L N 133-[address] [place] [address] [phone] Potassium 3.5 mmol/L Low 3.7-5.6 Chloride 99 mmol/L Low 101-111 Co2 Carbon Dioxide 27 mmol/L N 22-32 Anion Gap 7 mmol/L N 2-11 Glucose 85 mg/dL N 70-100 Blood Urea Nitrogen 15 mg/dL N 6-24 Creatinine 1.02 mg/dL High 0.51-0.95 BUN/Creatinine Ratio 14.7 N 8-20 Calcium 8.7 mg/dL N 8.6-10.3 Total Protein 5.7 g/dL Low 6.4-8.9 Albumin 3.8 g/dL N 3.2-5.2 Globulin 1.9 g/dL Low 2-4 Albumin/Globulin Ratio 2.0 N 1-3 Total Bilirubin 0.40 mg/dL N 0.2-1.0 Alkaline Phosphatase 92 U/L N 34-104 Alt 9 U/L N 7-52 Ast 13 U/L N 13-39 Egfr Non- 52.4 N >60 Egfr 67.4 N >60 22 Laboratory test 11/18/2013 [facility] TSH (Thyroid 3.43 N 0.34 -5.60 [address] Stimulating IU/[place] [address] Horm) [phone] Comp Metabolic 09/15/2013 Sodium 131 Low 133-145 Panel mmol/L Potassium 3.6 mmol/L Low 3.7-5.6 Chloride 94 [...] Egfr Non- 48.0 >60 Egfr 61.8 >60 24 CBC Auto Diff 09/15/2013 White Blood Count [...] ng/mL 25-Hydroxy Vitamin D Total 43 ng/mL 25 CBC Auto Diff 01/27/2013 [facility] White Blood 7.0 10^3/uL 4.8-10.[address] [place] [address] [phone] Red Blood Count 3.59 10^6/uL Low 4.0-5.4 [...] 0-2 Nucleated Red Blood Cells % 0 Inr/Protime 01/27/2013 [facility] Inr 1.00 High 0.87-0.[address] [place] [address] [phone] Laboratory test 01/27/2013 [facility] Activated 29.8 22.18- 37.[address] [place] [address] Thrombo Time [phone] Basic Metabolic 01/27/2013 [facility] Sodium 131 mmol/L Low 133-[address] [place] [address] [phone] Potassium 4.1 mmol/L 3.5-5.0 Chloride 99 mmol/L Low 101-111 Co2 Carbon Dioxide 26.0 mmol/L 22-32 Anion Gap 6.0 mmol/L 2-11 Glucose 77 mg/dL 70-100 Blood Urea Nitrogen 28 mg/dL High 6-24 Creatinine 1.00 mg/dL 0.50-1.40 BUN/Creatinine Ratio 28.0 High 8-20 Calcium 9.1 mg/dL 8.1-9.9 Egfr Non- 53.6 >60 Egfr 69.0 >60 26 CBC Auto Diff 10/22/2012 [facility] White Blood 7.0 10^3/uL 4.8-10.[address] [place] [address] [phone] Red Blood Count 3.61 10^6/uL Low 4.0-5.4 [...] 0-2 Nucleated Red Blood Cells % 0.1 Comp Metabolic Panel 10/22/2012 [facility] Sodium 133 mmol/L 133-[address] [place] [address] [phone] Potassium 4.2 mmol/L 3.5-5.0 Chloride 99 mmol/L [...] Egfr Non- 43.6 >60 Egfr 56.0 >60 27 Laboratory test 10/22/2012 [facility] Cholesterol 155 mg/dL Less than [address] [place] [address] [phone] LDL Cholesterol Direct 79 mg/dL Less Than 100 29 TSH (Thyroid Stimulating Horm) 0.77 miu/mL 0.34-5.60 30 CBC With 05/22/2012 [facility] White Blood 6.4 10^3/uL 4.8- 10.8 Manual Diff [address] [place] [address] [phone] Red Blood Count 3.61 10^6/uL Low 4.0-5.4 [...] RBC Morphology Normal Normal Comp Metabolic Panel 05/22/2012 [facility] Sodium 133 mmol/L 133-[address] [place] [address] [phone] Potassium 4.1 mmol/L 3.5-5.0 Chloride 98 mmol/L [...] 1-3 Total Bilirubin 1.1 mg/dL High 0.1-1.0 31 Alkaline Phosphatase 182 U/L High 30-110 Alt 19 U/L 14-54 Ast 22 U/L 12-42 Egfr Non- 48.2 >60 Egfr 61.9 >60 32 Laboratory test 05/22/2012 [facility] C Reactive 0.8 mg/dL High Less Than finding [address] Protein 0.5 [place] [address] [phone] Comp Metabolic 12/15/2011 [facility] Sodium 136 mmol/L 135- [address] [place] [address] [phone] Potassium 4.3 mmol/L 3.5-5.0 Chloride 100 mmol/L Low 101-111 Co2 (Carbon Dioxide) 29.0 mmol/L 22-32 Anion Gap 7.0 mmol/L 2-11 33 Glucose 79 mg/dL 70-100 BUN 23 mg/dL 6-24 Creatinine 1.2 mg/dL 0.50-1.40 One Over Creatinine 0.83 BUN/Creatinine Ratio 19.2 8-20 Calcium 10.0 mg/dL High 8.1-9.9 Total Protein 6.0 GM/DL Low 6.2-8.1 Albumin 3.6 GM/DL 3.2-5.2 Globulin 2.4 GM/DL 2-4 Albumin/Globulin Ratio 1.5 1-3 Bilirubin Total 1.2 mg/dL 0.4-1.5 34 Alkaline Phosphatase 122 U/L High 30-110 Alt (SGPT) 16 U/L 14-54 Ast (Sgot) 22 U/L 12-42 eGFR Non- 43.7 > 60 eGFR 56.2 > 60 35 1 Because ethnic data is not always [...] 5 Kidney failure <15 (or dialysis) 3 Because ethnic data is not always readily [...] 15-29 5 Kidney failure <15 (or dialysis) 4 FASTING 5 Because ethnic data is not always readily [...] 15-29 5 Kidney failure <15 (or dialysis) 6 FASTING 7 RUN DATE: 10/28/14 [facility] LAB LIVE PAGE 1 RUN TIME: [address] [place] [id number] Specimen Inquiry Name: ARNULFOTAMMY N : [address]: Ana Bills NP Acct: [id number] Unit: [id number] AGE: 79 Location: LAB Re10/26/14 SEX: F Status: REG REF SPEC: [id number] VIVI: 10/26/14-[address]: Ana Bills NP REQ: [id number] RECD: 10/26/14 STATUS: TERENCE BOYER DR: Jose Daniel Ramirez MD _ SOURCE: URINE SPDESC: ORDERED: Urine Culture QUERIES: Provider Requisition # [id number] Urine Source: Clean Catch Procedure Result Verified Site Urine Culture Final 10/28/14- 0925 ML Organism 1 ESCHERICHIA COLI [place] Count >100,000 (Many) CFU/ML 1. ESCHERICHIA COLI [...] antibiotic reporting. * ML - MAIN LAB ([facility]) . END OF REPORT * ML=Testing performed at Main Lab DEPARTMENT OF PATHOLOGY, [address] [place] [address] Kleber Atkins M.D. Director [facility] # [id number] 8 REFERENCE VALUE 25-HYDROXY D TOTAL (D2+D3) Optimum levels in the healthy population are 20-50, patients with bone disease may benefit from higher levels within this range. Test Performed by: [address] [address] Ict Sales Assistant: Tommy Felder II, M.D., Ph.D. 9 Acute inflammation: >10.00 10 Because ethnic data is not always readily [...] 15-29 5 Kidney failure <15 (or dialysis) 11 *Ascorbic acid is present which may interfere with detection of blood. 12 FASTING 13 Desirable <150 Borderline high 150-199 High 200-499 Very High >500 14 Desirable <200 Borderline high 200-239 High >239 15 Low <40 Desirable: 40-60 High: >60 16 Desirable <100 Near Optimal 100-129 Borderline high 130-159 High 160-189 Very High >189 17 Test Performed by: [place] [address] Ict Sales Assistant: Christian Chun III, M.D. 18 Because ethnic data is not always readily [...] 15-29 5 Kidney failure <15 (or dialysis) 19 Acute inflammation: >10.00 20 -- REFERENCE VALUE -- <20.0 (Negative) Test Performed by: [place] [address] Ict Sales Assistant: Christian Chun III, M.D. 21 Test Performed by: [place] [address] Ict Sales Assistant: Christian Chun III, M.D. 22 Because ethnic data is not always readily [...] 15-29 5 Kidney failure <15 (or dialysis) 23 FASTING 24 Because ethnic data is not always readily [...] 15-29 5 Kidney failure <15 (or dialysis) 25 -- REFERENCE VALUE -- 25-HYDROXY D TOTAL (D2+D3) Optimum levels in the healthy population are 20-50, patients with bone disease may benefit from higher levels within this range. Test Performed by: [place] [id number] Ict Sales Assistant: Christian Chun III, M.D. 26 Because ethnic data is not always readily [...] 15-29 5 Kidney failure <15 (or dialysis) 27 Because ethnic data is not always readily [...] 15-29 5 Kidney failure <15 (or dialysis) 28 FASTING 29 LDL Interpretation: Low Risk Optimal Level: LDL Less than 100 MG/DL Near or Above Optimal: LDL 100-129 MG/DL Borderline High Risk: LDL 130-159 MG/DL High Risk: LDL 160-189 MG/DL Very High Risk: LDL Greater than 189 MG/DL 30 FASTING 31 A metabolite of Naproxen, O-desmethylnaproxen, has been shown to interfere with the Jendrassik-Cresco method for measuring total bilirubin. Samples from patients who have taken Naproxen have shown spurious elevation in total bilirubin levels. 32 Because ethnic data is not always readily [...] 15-29 5 Kidney failure <15 (or dialysis) 33 Anion gap measurement may be of limited value in the presence of any alkalosis, especially in a combined acid base disorder. . 34 A metabolite of Naproxen, O-desmethylnaproxen, has been shown to interfere with the Jendrassik-Cresco method for measuring total bilirubin. Samples from patients who have taken Naproxen have shown spurious elevation in total bilirubin levels. 35 Because ethnic data is not always readily [...] Kidney failure <15 (or dialysis) Procedures Date Code Description Status 02/03/2019 34533 Inject/Drain Joint/Bursa Major W/O US Completed 01/28/2019 77322 Admin Of Inj Completed 12/31/2018 21922 EKG Tracing & Interpretation Completed 12/26/2018 29358 Pace Maker Eval W/Iterative Adjustment Multiple Lead Completed Pacemaker 12/26/2018 84442 Pace Maker Eval W/Iterative Adjustment Multiple Lead Completed Pacemaker 09/27/2018 38832 Pace Maker Eval W/Iterative Adjustment Multiple Lead Completed Pacemaker 09/27/2018 48170 Pace Maker Eval W/Iterative Adjustment Multiple Lead Completed Pacemaker 06/28/2018 [id number] Mammogram Completed 06/19/2018 97923 Admin Of Inj Completed 04/30/2018 79690 Pace Maker Eval W/Iterative Adjustment Multiple Lead Completed Pacemaker 04/30/2018 54217 Pace Maker Eval W/Iterative Adjustment Multiple Lead Completed Pacemaker 02/20/2018 [id number] Bone Mineral Density Test Completed 01/30/2018 23843 Pace Maker Eval W/Iterative Adjustment Multiple Lead Completed Pacemaker 01/30/2018 63207 Pace Maker Eval W/Iterative Adjustment Multiple Lead Completed Pacemaker 11/30/2017 54584 Admin Of Inj Completed 11/22/2017 10598 Use Of Operating Microscope Completed 11/22/2017 41692 Use Of Operating Microscope Completed 11/22/2017 80095 Zaidi/Facet/Foraminotomy;Vertebral Segment; Lumbar Completed 11/22/2017 72740 Zaidi/Facet/Foraminotomy;Vertebral Segment; Lumbar Completed 11/12/2017 75831 EKG Tracing & Interpretation Completed 11/07/2017 00119 Stress Test Completed 11/07/2017 77087 Myocardial Perfusion Imaging Tomographic (Spect) Completed Multiple Studies 10/24/2017 01052 ECHO Transthoracic, Real-Time 2D With Doppler And Completed Color Flow 10/24/2017 04549 ECHO Transthoracic, Real-Time 2D With Doppler And Completed Color Flow 09/13/2017 89918 Pace Maker Eval W/Iterative Adjustment Multiple Lead Completed Pacemaker 09/13/2017 98216 Pace Maker Eval W/Iterative Adjustment Multiple Lead Completed Pacemaker 06/12/2017 79763 Pace Maker Eval W/Iterative Adjustment Multiple Lead Completed Pacemaker 06/12/2017 30595 Pace Maker Eval W/Iterative Adjustment Multiple Lead Completed Pacemaker 05/22/2017 92275 Admin Of Inj Completed 04/24/2017 [id number] Bone Mineral Density Test Completed 12/25/2016 18159 Pace Maker Eval W/Iterative Adjustment Multiple Lead Completed Pacemaker 11/17/2016 68420 Admin Of Inj Completed 10/04/2016 89767 EKG Tracing & Interpretation Completed 08/24/2016 04091 Pace Maker Eval W/Iterative Adjustment Multiple Lead Completed Pacemaker 06/01/2016 99943 Pace Maker Eval W/Iterative Adjustment Multiple Lead Completed Pacemaker 05/19/2016 16314 Chemotherpy Admin Subcutaneous/Im Non-Hormonal Completed Anti-Neoplastic 01/27/2016 60022 Pace Maker Eval W/Iterative Adjustment Multiple Lead Completed Pacemaker 11/17/2015 13802 Chemotherpy Admin Subcutaneous/Im Non-Hormonal Completed Anti-Neoplastic 10/07/2015 04650 Stress Test Completed 10/07/2015 51720 Myocardial Perfusion Imaging Tomographic (Spect) Completed Multiple Studies 09/28/2015 90364 ECHO Transthoracic, Real-Time 2D With Doppler And Completed Color Flow 08/31/2015 82732 Pace Maker Eval W/Iterative Adjustment Multiple Lead Completed Pacemaker 05/27/2015 107153025 Bone Mineral Density Test Completed 05/27/2015 [id number] Mammogram Completed 04/28/2015 25602 Interrogation Device Eval In Person W/DR Completed Analysis,Single,Dual,Mul 02/25/2015 19065 Chemotherpy Admin Subcutaneous/Im Non-Hormonal Completed Anti-Neoplastic 01/11/2015 85235 Admin Of Inj Completed 12/29/2014 21187 Interrogation Device Eval In Person W/DR Completed Analysis,Single,Dual,Mul 12/25/2014 16730 EKG Tracing & Interpretation Completed 08/03/2014 81297 Pace Maker Eval W/Iterative Adjustment Multiple Lead Completed Pacemaker 05/21/2014 58023 Admin Of Inj Completed 04/29/2014 10251 EKG Tracing & Interpretation Completed 04/01/2014 56841 Pace Maker Eval W/Iterative Adjustment Multiple Lead Completed Pacemaker 03/30/2014 23964 ECHO Transthoracic, Real-Time 2D With Doppler And Completed Color Flow 03/26/2014 [id number] Mammogram Completed 11/26/2013 80573 Pace Maker Eval W/Iterative Adjustment Multiple Lead Completed Pacemaker 11/18/2013 06859 Admin Of Inj Completed 10/27/2013 46368 Xray Knee 3 Views Completed 10/27/2013 42774 Rad Exam; Wrist Limited, 2 Views Completed 10/27/2013 42343 Short Arm Cast Application Completed 10/08/2013 60251 FX Patella Care Completed 10/08/2013 26751 CLST TRMT Distal Radial FX Completed 07/24/2013 54217 Pace Maker Eval W/Iterative Adjustment Multiple Lead Completed Pacemaker 06/18/2013 60543 Rad Exam; Hand Comp Completed 06/18/2013 85477 Rad Exam; Hand Comp Completed 05/21/2013 [id number] Bone Mineral Density Test Completed 05/14/2013 18385 Short Arm Splint Application Completed 05/14/2013 79128 Closed TX Metacarpal FX Single W/O Manipulation, Ea Completed Bone 03/25/2013 80455 ECHO Transthoracic, Real-Time 2D With Doppler And Completed Color Flow 03/24/2013 48111 Pace Maker Eval W/Iterative Adjustment Multiple Lead Completed Pacemaker 12/06/2012 85613 ECHO Transthoracic, Real-Time 2D With Doppler And Completed Color Flow 11/25/2012 93010 Stress Test Completed 11/25/2012 00987 Myocardial Perfusion Imaging Tomographic (Spect) Completed Multiple Studies 11/14/2012 34539 Pace Maker Eval W/Iterative Adjustment Multiple Lead Completed Pacemaker 11/14/2012 21239 EKG Tracing & Interpretation Completed 07/23/2012 48863 Pace Maker Eval W/Iterative Adjustment Multiple Lead Completed Pacemaker 05/06/2012 03448 Interrogation Device Eval In Person W/DR Completed Analysis,Single,Dual,Mul 02/14/2012 [id number] Mammogram Completed 07/06/2003 54823 Color Doppler Completed 07/06/2003 62214 Pulse Doppler & Continuous Wave Completed 07/06/2003 98724 Echocardiogram Completed Encounters Type Date Location Provider Dx Diagnosis Office Visit 01/28/2019 Rheumatology Ana Bills M81.0 Age-related 1:30p Services Of [facility] EXPLORATION DRILLER osteoporosis w/o current pathological fracture N20.0 Calculus of kidney M70.61 Trochanteric bursitis, right hip M76.31 Iliotibial band syndrome, right leg Z79.899 Other fpc (current) drug therapy Office Visit 12/31/2018 1:45p Nitesh Sol I42.9 Cardiomyopathy, Cardiology Of [facility] Ya, unspecified [facility] FACC, FASNC Z95.0 Presence of cardiac pacemaker Office Visit 06/04/2018 10:00a Rheumatology Ana M85.9 Disorder of bone Services Of CAROL GallegoP density and structure, unspecified M70.61 Trochanteric bursitis, right hip M76.31 Iliotibial band syndrome, right leg M48.061 Spinal stenosis, lumbar region without neurogenic manny N20.0 Calculus of kidney Office 04/19/2018 Neurosurgery Vassilios M51.16 Intervertebral disc Visit 10:00a Services Of Ilan Carrion MD disorders w radiculopathy, lumbar region M48.061 Spinal stenosis, lumbar region without neurogenic manny M43.16 Spondylolisthesis, lumbar region Office 03/01/2018 Neurosurgery Vassilios M51.16 Intervertebral disc Visit 11:45a Services Of Ilan Carrion MD disorders w radiculopathy, lumbar region M43.16 Spondylolisthesis, lumbar region M47.26 Other spondylosis with radiculopathy, lumbar region M48.061 Spinal stenosis, lumbar region without neurogenic manny M85.88 Oth disrd of bone density and structure, other site Office Visit 11/30/2017 10:00a Rheumatology Zsofia M81.0 Age-related Services Of LILIYA Gallego osteoporosis w/o current pathological fracture Z79.899 Other ferry terminal agent (current) drug therapy Z92.29 Personal history of other drug therapy Office Visit 11/22/2017 9:21a [facility] I10 [facility]ential [facility],gwyn Dunn NP (primary) Hospitalists hypertension I50.9 Heart failure, unspecified Z98.890 Other specified postprocedural states Z95.0 Presence of cardiac pacemaker Office Visit 11/12/2017 1:15p Nitesh Sol I42.9 Cardiomyopathy, Cardiology Of Angelo Ya, unspecified [facility] FACC, [facility] I10 Essential (primary) hypertension Office 10/19/2017 Neurosurgery Vassilios M47.26 Other spondylosis Visit 11:00a Services Of Ilan Carrion MD with radiculopathy, lumbar region M43.16 Spondylolisthesis, lumbar region M51.16 Intervertebral disc disorders w radiculopathy, lumbar region M48.061 Spinal stenosis, lumbar region without neurogenic manny Office 09/26/2017 Neurosurgery Vassilios M47.26 Other spondylosis Visit 11:30a Services Of Ilan Carrion MD with radiculopathy, lumbar region M43.16 Spondylolisthesis, lumbar region Office Visit 05/22/2017 10:30a Rheumatology Budofimehreen M81.0 Age-related Services Of LILIYA Gallego osteoporosis w/o current pathological fracture N20.0 Calculus of kidney N18.2 Chronic kidney disease, stage 2 (mild) M48.00 Spinal stenosis, site unspecified Z92.29 Personal history of other drug therapy Z79.899 Other ferry terminal agent (current) drug therapy Office Visit 11/17/2016 11:00a Rheumatology Budofia M81.0 Age-related Services Of [employer] Sanju, EXPLORATION DRILLER osteoporosis w/o current pathological fracture N18.2 Chronic kidney disease, stage 2 (mild) N20.0 Calculus of kidney M11.261 Other chondrocalcinosis, right knee Z92.29 Personal history of other drug therapy Z79.899 Other fpc (current) drug therapy Office Visit 10/04/2016 [facility] Sol I42.9 Cardiomyopathy, 11:00a Angelo Ya, unspecified FAC, [facility] Office Visit 05/19/2016 Rheumatology Zsofia M81.0 Age-related 11:00a Services Of [facility] Sanju, EXPLORATION DRILLER osteoporosis w/o current pathological fracture N20.0 Calculus of kidney Z92.29 Personal history of other drug therapy Office Visit 11/03/2015 9:00a Rheumatology Zsofia M81.0 [facility] CAROL BlilsP osteoporosis w/o current pathological fracture 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, unspecified knee N20.0 Calculus of kidney Z79.899 Other fpc (current) drug therapy Office Visit 12/25/2014 [facility] Ebenezer 425.4 Cardiomyopathy Other 1:15p Of Negar Parker M.D., FAC, [facility] Office Visit 12/15/2014 Orthopedic Glynn 712.16 Chondrocalcinosis 9:30a Services Of [place] Srini Stephens Crystal Lower Leg Office Visit 10/26/2014 Rheumatology Zsofia 733.00 Osteoporosis Unspec 1:00p Services Of Volcanology Teacher Sanju, [employer] 712.30 Chondrocalcinosis Unspec Site Unspec 715.94 Osteoarthrosis Unspec Genlzd Or Localized Hand 274.11 Nephrolithiasis Uric Acid 599.0 UTI Urinary Tract Infection Site Not Spec 275.49 Metabolic Disorder Calcium Other Office Visit 04/29/2014 [facility] Richie Sol 425.4 Cardiomyopathy 1:15p Angelo Ya, Other Prim [facility], [facility] Office Visit 04/21/2014 Rheumatology Yonatan 719.49 Pain Joint Multiple 1:20p Services Of Ilan Huerta M.D. Sites 733.01 Osteoporosis Senile 715.94 Osteoarthrosis Unspec Genlzd Or Localized Hand 722.93 Disc Disorder Other & Unspec Lumbar Region Office Visit 03/18/2014 Rheumatology Yonatan Huerta 733.01 Osteoporosis 1:00p Services Of Ilan Stephens Senile 712.30 Chondrocalcinosis Unspec Site Unspec 715.94 Osteoarthrosis Unspec Genlzd Or Localized Hand 719.49 Pain Joint Multiple Sites 722.93 Disc Disorder Other & Unspec Lumbar Region Office Visit 09/15/2013 Rheumatology Zsofia 733.00 Osteoporosis 1:00p Services Of CAROL GallegoP Unspec 712.30 Chondrocalcinosis Unspec Site Unspec 274.11 Nephrolithiasis Uric Acid Office Visit 04/16/2013 Rheumatology Zsofia 274.11 Nephrolithiasis Uric 1:00p Services Of CAROL GallegoP Acid 733.00 Osteoporosis Unspec 712.30 Chondrocalcinosis Unspec Site Unspec 244.9 Hypothyroidism Other Unspec Office Visit 03/27/2013 [facility] Richie Sol 425.4 Cardiomyopathy Other 10:30a Of Ilan Ya M.D., Prim FAC, FASOH Office Visit 12/11/2012 [facility] Richie Sol 425.4 Cardiomyopathy Other 10:30a Of Ilan Ya M.D., Prim FAC, FASNC Office Visit 10/15/2012 Rheumatology Zsofia 274.11 Nephrolithiasis Uric 1:40p Services Of LILIYA Gallego Acid 733.00 Osteoporosis Unspec 712.30 Chondrocalcinosis Unspec Site Unspec Office Visit 07/17/2012 [facility] Richie Sol 425.4 Cardiomyopathy 10:30a Of Ilan Ya M.D., Other Prim [facility], [facility] Office Visit 05/14/2012 [facility] Richie Sol 425.4 Cardiomyopathy 10:15a Of Ilan Ya M.D., Other Prim FACC, FASNC Office Visit 04/15/2012 Rheumatology Yonatan 733.00 Osteoporosis Unspec 10:40a Services Of Ilan Huerta M.D. 712.30 Chondrocalcinosis Unspec Site Unspec 274.11 Nephrolithiasis Uric Acid Office Visit 12/15/2011 Rheumatology Yonatan Huerta, 733.00 Osteoporosis 10:20a Services Of Ilan Stephens Unspec 712.30 Chondrocalcinosis Unspec Site Unspec Office Visit 08/16/2011 Rheumatology Yonatan Huerta, 733.00 Osteoporosis 3:20p Services Of Ilan Stephens Unspec 712.30 Chondrocalcinosis Unspec Site Unspec Office Visit 07/18/2011 Rheumatology Yonatan Huerta, 733.00 Osteoporosis 3:00p Services Of Ilan Stephens Unspec 712.30 Chondrocalcinosis Unspec Site Unspec 274.11 Nephrolithiasis Uric Acid Plan of Treatment Future Appointment(s):02/10/2019 2:45 pm - Masha Jewell M.D. at [facility]08/01/2019 10:30 am - LILIYA Zepeda at [facility]03/27/2019 10:30 am - Ica Pacer Schedule at [facility]04/18/2019 9:00 am - Page Carrion MD at Neurosurgery [facility]02/03/2019 - Bryson Wolfe M.D.M70.61 Trochanteric bursitis, right hipM16.11 Unilateral primary osteoarthritis, right hipReferral:Masha Jewell M.D., Surgery,Ortho Adult SghtfO85.0 Age-related osteoporosis without current pathological fractuFollow up:Follow up with Ana or as scheduled
[2019-02-05 22:37] VITALS: BP 173/89
--- NOTE | 2019-02-05 22:39 | ED ---
Allergic Reaction/Systemic - HPI Summary HPI Summary: 84-year-old female presents with potential allergic reaction today. She got bite multiple times by some bug onto her left knee and hand. She states she is pretty severe pain in the knee. No rash. She did take her epipen about an hour prior. denies any chest pain or shortness breath. No vomiting or nausea. She denies any palpitations. Has a history of a pacemaker. No sore throat. - History of Current Complaint Chief Complaint: EDAnimalBite Time Seen by Provider: 02/05/19 20:52 Pain Intensity: 7 - Allergies/Home Medications Allergies/Adverse Reactions: Allergies Allergy/AdvReac Type Severity Reaction Status Date / Time bee venom protein (honey bee) Allergy Severe Anaphylatic Verified 02/05/19 20:43 Shock ibuprofen Allergy Mild Rash Verified 02/05/19 20:43 Adhesive Tape AdvReac Mild Rash Verified 02/05/19 20:43 oxycodone [From Percocet] AdvReac Nausea And Verified 02/05/19 20:43 Vomiting BEE STINGS Allergy Severe ANAPHYLAXIS Uncoded 01/02/19 10:34 PMH/Surg Hx/FS Hx/Imm Hx Endocrine/Hematology History: Reports: Hx Thyroid Disease - HISTORY OF GRAVES DISEASE, HISTORY OF THYROID STORM Denies: Hx Anticoagulant Therapy, Other Endocrine/Hematological Disorders Cardiovascular History: Reports: Hx Congestive Heart Failure, Hx Coronary Artery Disease - cholesterol control wtih medication, Hx Hypertension, Hx Pacemaker/ICD, Other Cardiovascular Problems/Disorders - CHF Respiratory History: Denies: Other Respiratory Problems/Disorders GI History: Reports: Hx Gastroesophageal Reflux Disease - ON MEDICATION Denies: Other GI Disorders History: Reports: Hx Kidney Stones - PASSED ONE LARGE IN THE PAST Denies: Other Problems/Disorders Musculoskeletal History: Reports: Hx Arthritis - GENERALIZED, Hx Osteoporosis, Other Musculoskeletal History - Carpal Tunnel (L) Sensory History: Reports: Hx Cataracts, Hx Contacts or Glasses - GLASSES, Hx Vision Problem, Hx Hearing Problem Denies: Hx Hearing Aid, Other Sensory Impairments Opthamlomology History: Reports: Hx Cataracts, Hx Contacts or Glasses - GLASSES , Hx Vision Problem Denies: Other Sensory Impairments Neurological History: Reports: Hx Headaches - less often, Other Neuro Impairments/Disorders - PAIN CLINIC PT Psychiatric History: Denies: Other Psychiatric Issues/Disorders - Cancer History Cancer Type, Location and Year: L Breast CA. Skin CA Hx Chemotherapy: No Hx Radiation Therapy: Yes - Surgical History Surgery Procedure, Year, and Place: Hysterectomy 1969, CATARACTS,. Appendectomy 1969. Ovarian Cyst. Cyst on Abd wall. Cholecystectomy , CARPAL TUNNEL RIGHT AND LEFT. Lumpectomy breast. Hx Anesthesia Reactions: No Infectious Disease History: No Infectious Disease History: Reports: Hx Shingles - x2 - last 1991 Denies: History Other Infectious Disease, Traveled Outside the [place] in Last 30 Days - Family History Known Family History: Positive: None, Cardiac Disease, Diabetes - Social History Alcohol Use: None Alcohol Amount: 5 drinks per week Hx Substance Use: No Substance Use Type: Reports: None Hx Tobacco Use: No Smoking Status (MU): Never Smoked Tobacco Review of Systems Negative: Fever Negative: Chest Pain Negative: Shortness Of Breath Negative: Rash All Other Systems Reviewed And Are Negative: Yes Physical Exam Triage Information Reviewed: Yes Vital Signs On Initial Exam: Initial Vitals Temp Pulse Resp BP Pulse Ox 97.6 F 76 18 151/58 98 02/05/19 20:39 02/05/19 20:39 02/05/19 20:39 02/05/19 20:39 02/05/19 20:39 Vital Signs Reviewed: Yes Appearance: Positive: Well-Appearing Skin: Positive: Warm, Dry, Other - no rash seen on exam Head/Face: Positive: Normal Head/Face Inspection Eyes: Positive: Normal, EOMI, CHITO, Conjunctiva Clear ENT: Positive: Normal ENT inspection, Pharynx normal, TMs normal Respiratory/Lung Sounds: Positive: Clear to Auscultation, Breath Sounds Present Cardiovascular: Positive: Normal, RRR Abdomen Description: Positive: Nontender, Soft Bowel Sounds: Positive: Present Musculoskeletal: Positive: Normal Neurological: Positive: Normal Psychiatric: Positive: Normal Diagnostics - Vital Signs Vital Signs Temp Pulse Resp BP Pulse Ox 02/05/19 22:34 73 18 173/89 100 02/05/19 22:32 73 24 99 02/05/19 22:00 64 15 98 02/05/19 21:57 66 13 137/59 98 02/05/19 21:27 66 20 144/58 98 02/05/19 21:00 67 98 02/05/19 20:57 71 151/70 98 02/05/19 20:56 72 98 02/05/19 20:39 97.6 F 76 18 151/58 98 - Laboratory Lab Statement: Any lab studies that have been ordered have been reviewed, and results considered in the medical decision making process. Re-Evaluation - Re-Evaluation First Eval Re-Evaluation Time: 22:45 Change: Unchanged Comment: no repeat symptoms after 3 hours post epi Allergic Reaction Course/Dx - Course Course Of Treatment: 84-year-old female presents with potential allergic reaction today. She got bite multiple times by some bug onto her left knee and hand. She states she is pretty severe pain in the knee. No rash. She did take her epipen about an hour prior. denies any chest pain or shortness breath. No vomiting or nausea. She denies any palpitations. Has a history of a pacemaker. No sore throat. On exam no rash noted. lungs CTA. abd soft nontender. Observed patient for 2 hours after epi and no repeat reaction. gave dose of benadryl here. As no signs of definite reaction will not place on steroids at this time. Told to take benadryl as needed for itching or swelling. patient understand and agrees with plan. - Diagnoses Differential Diagnosis/HQI/PQRI: Positive: Anaphylaxis, Local Allergic Reaction , Urticaria Provider Diagnoses: Bug bite Discharge - Sign-Out/Discharge Documenting (check all that apply): Patient Departure Patient Received Moderate/Deep Sedation with Procedure: No - Discharge Plan Condition: Good Disposition: HOME Prescriptions: EPINEPHrine [Epipen] 0.3 mg IJ ONCE #1 auto.injct Patient Education Materials: Insect Bite or Sting (ED) Referrals: Bebe Mathew MD [Primary Care Provider] - Additional Instructions: take benadryl every 6 hours for itching and swelling apply ice Return to ED if develop any new or worsening symptoms - Billing Disposition and Condition Condition: GOOD Disposition: Home
== END | disposition home or self-care (01) ==
LOC: ED 20:35
DX: S80.262A Insect bite (nonvenomous), left knee, initial encounter (principal); S60.562A Insect bite (nonvenomous) of left hand, initial encounter; W57.XXXA Bitten or stung by nonvenomous insect and other nonvenomous arthropods, initial encounter; Y92.9 Unspecified place or not applicable; Z88.5 Allergy status to narcotic agent; Z88.8 Allergy status to other drugs, medicaments and biological substances; E05.00 Thyrotoxicosis with diffuse goiter without thyrotoxic crisis or storm; I50.9 Heart failure, unspecified; I25.10 Atherosclerotic heart disease of native coronary artery without angina pectoris; I11.0 Hypertensive heart disease with heart failure; Z95.810 Presence of automatic (implantable) cardiac defibrillator; K21.9 Gastro-esophageal reflux disease without esophagitis
CPT/HCPCS: 99283; A9270-GY

== ENCOUNTER 2020-11-18 12:55 | Observation (INO) ==
[~2020-11-18 12:55] MED LIST changes: +Buffered Lidocaine 1% SYRIN 1 ml INTRADERM ONE; +Dexamethasone IV 4 MG/ML VIAL 1 ml VIAL IV SLOW PU ONE; +Dexamethasone IV 4 MG/ML VIAL 1 ml VIAL ONE; +Famotidine IV 10 MG/ML 2 ml VIAL (20 mg) IV ONE; +Famotidine IV 10 MG/ML 2 ml VIAL (20 mg) ONE; +Lactated Ringers 1000 ml BAG 1,000 ML IV SCH; +Lidocaine 2% PF 5 ML VIAL ONE; +Meropenem 1 GM PREMIX(*) 1 GM/50 ML BAG IV ONE; +Ondansetron 4 mg VIAL 2 MG/ML 2 ml VIAL ONE; +Phenylephrine IV 10 MG/ML 1 ml VIAL ONE; +Propofol 10 MG/ML 20 ML BTL ONE; +ceFAZolin 2 GM PREMIX 2 GM/50 ML BAG ONE; -diPHENhydraMINE PO* 25 MG PO ONE; +fentaNYL 100 mcg/2 ml 50 MCG/ML VIAL ONE
[2020-11-18 14:07] LABS: INR 1.16 (0.82-1.09)
[2020-11-18] MEDS ORDERED: Ropivacaine 5 MG/ML 20 ML VIAL 0.5% (100 MG) ONE (14:19)
[2020-11-18] MEDS ORDERED: Midazolam 2 mg/2 ml VIAL 1 mg/ml 2 ml VIAL (2 mg) ONE (15:10)
[2020-11-18 15:16] LABS: INR 1.21 (0.82-1.09)
[2020-11-18] MEDS ORDERED: Glycopyrrolate IV 0.2 MG/ML 1 ML VIAL ONE (15:49)
[2020-11-18] MEDS ORDERED: EPHEDrine (Pressors) 50 MG/ML VIAL ONE (15:51)
[2020-11-18] MEDS ORDERED: Naloxone 0.4 mg VIAL 0.4 mg/ml 1 ml VIAL IV PRN (16:10)
[2020-11-18] MEDS ORDERED: HYDROmorphone 1 MG/1 ML SYRINGE IV PRN (16:10)
[2020-11-18] MEDS ORDERED: diPHENhydraMINE IV 50 MG/ML 1 ml VIAL (BENADRYL) IV PRN (17:35)
[2020-11-18] MEDS ORDERED: Magnesium Hydroxide LIQ 30 ML UDC PO PRN (17:35)
[2020-11-18] MEDS ORDERED: Ondansetron ODT 4 mg TAB 4 MG TAB PO PRN (17:35)
[2020-11-18] MEDS ORDERED: diPHENhydraMINE 25 mg TAB PO PRN (17:35)
[2020-11-18] MEDS ORDERED: Lactulose 30 ml UDC PO PRN (17:35)
[2020-11-18] MEDS ORDERED: Ondansetron 4 mg VIAL 2 MG/ML 2 ml VIAL IV PRN (17:35)
[2020-11-18] MEDS ORDERED: Morphine 2 MG/ML SYRINGE IV PRN (17:41)
[2020-11-18] MEDS ORDERED: HYDROcodone/ACETAMIN 5/325 mg TAB PO PRN (17:55)
[2020-11-18] MEDS ORDERED: Denosumab 60 MG/ML SYRINGE SCH (18:00)
[2020-11-18] MEDS ORDERED: HYDROcodone/ACETAMIN 5/325 mg TAB ONE (18:59)
[2020-11-18] MEDS ORDERED: fentaNYL 100 mcg/2 ml 50 MCG/ML VIAL ONE (19:09)
[2020-11-18] MEDS: fentaNYL 100 mcg/2 ml 50 MCG/ML VIAL IV PRN ×4 (19:10→19:28)
[2020-11-18] MEDS: Lactated Ringers 1000 ml BAG 1,000 ML IV SCH (20:57)
[2020-11-18] MEDS: Magnesium Hydroxide LIQ 30 ML UDC PO SCH (21:30)
[2020-11-18] MEDS: ceFAZolin 1 GM ADVAN 1 GM in NS 0.9% 50 ML 50 ML IVPB SCH (23:17)
[2020-11-18] MEDS: HYDROcodone/ACETAMIN 5/325 mg TAB PO PRN (23:17)
[2020-11-19] MEDS: HYDROcodone/ACETAMIN 5/325 mg TAB PO PRN (05:51)
[2020-11-19 06:48] LABS: Hematocrit 28 % (35-47); Hemoglobin 9.5 g/dL (12.0-16.0); Mean Platelet Volume 7.9 fL (7.4-10.4); Platelet Count 221 10^3/uL (150-450)
[2020-11-19 07:07] LABS: Calcium 8.2 mg/dL (8.6-10.3); EGFR African American 67.6 (>60); EGFR Non-African American 55.9 (>60); Potassium 3.4 mmol/L (3.5-5.0)
[2020-11-19] MEDS: Lactated Ringers 1000 ml BAG 1,000 ML IV SCH (07:24)
[2020-11-19] MEDS: ceFAZolin 1 GM ADVAN 1 GM in NS 0.9% 50 ML 50 ML IVPB SCH ×2 (07:32→16:12)
[2020-11-19] MEDS ORDERED: Potassium Chlor 20 meq TAB.ER PO ONE (08:57)
[2020-11-19] MEDS: Magnesium Hydroxide LIQ 30 ML UDC PO SCH ×2 (08:58→20:21)
[2020-11-19] MEDS: Vitamin THERAPEUTIC TAB PO SCH (08:58)
[2020-11-19] MEDS ORDERED: Meropenem 1 GM PREMIX(*) 1 GM/50 ML BAG IV ONE (09:00)
[2020-11-20 06:15] LABS: ABS Lymphocytes 1.4 10^3/ul (1.0-4.8); ABS Monocytes 1.1 10^3/ul (0-0.8); ABS Neutrophils 9.4 10^3/ul (1.5-7.7); Eosinophil % 0.2 %; Hematocrit 24 % (35-47); Lymphocyte % 11.8 %; Mean Corpuscular HGB Conc 34 g/dL (31-36); Mean Corpuscular Hemoglobin 30 pg (27-31); Mean Corpuscular Volume 88 fL (80-97); Mean Platelet Volume 7.9 fL (7.4-10.4); Platelet Count 174 10^3/uL (150-450); Red Cell Distribution Width 14 % (10-15); White Blood Count 11.9 10^3/uL (3.5-10.8)
[2020-11-20 06:32] LABS: Calcium 7.6 mg/dL (8.6-10.3); EGFR African American 93.2 (>60); Potassium 3.9 mmol/L (3.5-5.0)
[2020-11-20] MEDS: Magnesium Hydroxide LIQ 30 ML UDC PO SCH (09:52)
[2020-11-20] MEDS: Vitamin THERAPEUTIC TAB PO SCH (09:52)
[2020-11-20 11:34] VITALS: BP 110/44
== END 2020-11-20 14:00 | disposition home or self-care (01) ==
LOC: SSU 12:55 → OR 12:55 → SSU 11-19 16:57
PROVIDERS: ADMIT Orthopaedic Surgery Adult Reconstructive Orthopaedic Surgery; ATTEND Orthopaedic Surgery Adult Reconstructive Orthopaedic Surgery

== ENCOUNTER 2023-03-05 11:14 | Inpatient (IN) ==
[2023-03-05] MEDS ORDERED: Lactated Ringers 1000 ml BAG 1,000 ML IV ONE (11:34)
[2023-03-05 12:33] LABS: ABS Eosinophils 0.1 10^3/uL (0.0-0.5); ABS Lymphocytes 0.9 10^3/uL (1.0-4.8); ABS Monocytes 1.3 10^3/uL (0.0-0.9); ABS Neutrophils 10.4 10^3/uL (1.5-7.6); Eosinophil % 0.7 %; Hemoglobin 7.5 g/dL (11.5-14.3); Mean Corpuscular Hemoglobin 27.1 pg (27-33); Mean Corpuscular Volume 79.7 fL (80-97); Platelet Count 247 10^3/uL (150-450); Red Blood Count 2.76 10^6/uL (3.63-4.92); Red Cell Distribution Width 17.9 % (12-17); White Blood Count 12.7 10^3/uL (3.8-11.8)
[2023-03-05 12:52] LABS: Albumin 3.4 g/dL (3.2-5.2); Albumin/Globulin Ratio 1.1 (1-3); Calcium 9.9 mg/dL (8.6-10.3); Creatinine, Serum 1.51 mg/dL (0.51-0.95); Potassium 4.6 mmol/L (3.5-5.0); Total Bilirubin 0.4 mg/dL (0.2-1.0); Total Protein 6.4 g/dL (6.4-8.9)
[2023-03-05 14:31] LABS: Hematocrit 20.4 % (35-45); Hemoglobin 6.9 g/dL (11.5-14.3)
[2023-03-05 14:42] LABS: Urine Appearance Cloudy; Urine Bilirubin Negative (Negative); Urine Blood 1+ (Negative); Urine Color Yellow; Urine Glucose Negative (Negative); Urine Ketones Negative (Negative); Urine Nitrite Negative (Negative); Urine Protein Negative (Negative); Urine Urobilinogen Negative (Negative)
[2023-03-05] MEDS ORDERED: Iodixanol (CONTRAST) 320 MG/ML 100 ML SDV IV ONE (14:53)
[2023-03-05 14:56] LABS: Urine Bacteria Absent (Absent); Urine Red Blood Cell 1+(3-5/hpf) (Absent); Urine Squamous Epithelial Cell Present (Absent); Urine White Blood Cell 3+(>20/hpf) (Absent)
[2023-03-05 18:42] LABS: Activated Partial Thrombo Time 24.5 seconds (26.0-38.0); INR 1.02 (0.83-1.13)
[2023-03-05 18:50] LABS: Calcium 9.2 mg/dL (8.6-10.3); Creatinine, Serum 1.2 mg/dL (0.51-0.95); Potassium 4.4 mmol/L (3.5-5.0); eGFR CKD-EPI 43.5 (>60)
[2023-03-05] MEDS ORDERED: Magnesium Hydroxide LIQ 30 ML UDC PO PRN (19:10)
[2023-03-05] MEDS ORDERED: Senna TAB 8.6 mg TAB PO PRN (19:10)
[2023-03-05] MEDS ORDERED: cefTRIAXone 1 gm/50 mL D5W 1 GM/50 ML BAG IV SCH (20:30)
[2023-03-05] MEDS: cefTRIAXone 1 gm/50 mL D5W 1 GM/50 ML BAG IV SCH ×2 (23:08→23:11)
[2023-03-06] MEDS: Pantoprazole VIAL 40 MG VIAL IV SCH ×2 (01:27→09:41)
[2023-03-06 01:37] LABS: Hematocrit 28.8 % (35-45); Mean Corpuscular Hemoglobin 28.1 pg (27-33); Mean Corpuscular Hgb Conc 34.5 g/dL (31-36); Mean Corpuscular Volume 81.5 fL (80-97); Mean Platelet Volume 7.6 fL (7.5-11.2); Platelet Count 258 10^3/uL (150-450); Red Blood Count 3.54 10^6/uL (3.63-4.92); White Blood Count 13.7 10^3/uL (3.8-11.8)
[2023-03-06] MEDS ORDERED: Lactated Ringers 1000 ml BAG 1,000 ML IV ONE (02:47)
[2023-03-06] MEDS ORDERED: Acetaminophen IV 1 GM/100ML 1,000 MG/100 ML BAG IV PRN (02:48)
[2023-03-06 06:15] LABS: ABS Eosinophils 0.1 10^3/uL (0.0-0.5); ABS Monocytes 0.8 10^3/uL (0.0-0.9); ABS Neutrophils 8.5 10^3/uL (1.5-7.6); Corrected Retic Count 0.7 % (0.5-1.5); Eosinophil % 1.3 %; Hematocrit 24.2 % (35-45); Hematocrit for Retic CNT 24.2 % (35-45); Hemoglobin 8.8 g/dL (11.5-14.3); Immature Retic Fraction 0.31; Lymphocyte % 9.1 %; Mean Corpuscular Hemoglobin 29.1 pg (27-33); Mean Corpuscular Hgb Conc 36.2 g/dL (31-36); Mean Corpuscular Volume 80.4 fL (80-97); Mean Platelet Volume 7.5 fL (7.5-11.2); Platelet Count 214 10^3/uL (150-450); RBC Retic Count 3.01 10^6/ul (3.63-4.92); Red Blood Count 3.01 10^6/uL (3.63-4.92); Red Cell Distribution Width 17.8 % (12-17); White Blood Count 10.4 10^3/uL (3.8-11.8)
[2023-03-06 06:28] LABS: Calcium 9.1 mg/dL (8.6-10.3); Creatinine, Serum 0.91 mg/dL (0.51-0.95); Magnesium 1.6 mg/dL (1.9-2.7); Phosphorus 3.2 mg/dL (2.5-5.0); Potassium 4.2 mmol/L (3.5-5.0); eGFR CKD-EPI 60.7 (>60)
[2023-03-06 07:16] LABS: Ferritin 125.1 ng/mL (11-307)
[2023-03-06] MEDS ORDERED: Magnesium Sulfate 2 gm BAG 2 GM/50 ML BAG IVPB ONE (07:55)
[2023-03-06] MEDS ORDERED: Polyethylene Glycol 3350 17 GM PACKET PO SCH (09:00)
[2023-03-06] MEDS ORDERED: Cholecalciferol (VIT D3) 1,000 unit TAB PO SCH (09:00)
[2023-03-06] MEDS ORDERED: Conjugated Estrogens VAG CM 42.5 gm TUBE VAGINAL SCH (09:00)
[2023-03-06 12:57] VITALS: BP 125/54
[2023-03-06 14:30] LABS: Hematocrit 30.1 % (35-45); Hemoglobin 10.4 g/dL (11.5-14.3); Mean Corpuscular Hemoglobin 28.1 pg (27-33); Mean Corpuscular Hgb Conc 34.6 g/dL (31-36); Mean Platelet Volume 7.1 fL (7.5-11.2); Platelet Count 286 10^3/uL (150-450); Red Blood Count 3.71 10^6/uL (3.63-4.92); Red Cell Distribution Width 17.7 % (12-17)
== END 2023-03-06 17:15 | DRG 315 ==
LOC: ED 11:14 → EDHOLD 16:14 → MED 20:17
PROVIDERS: ADMIT Internal Medicine; ATTEND Internal Medicine

== ENCOUNTER 2024-05-22 16:28 | Inpatient (IN) ==
[2024-05-22 17:02] LABS: ABS Basophils 0.2 10^3/uL (0.0-0.1); ABS Eosinophils 0.1 10^3/uL (0.0-0.5); ABS Lymphocytes 1.3 10^3/uL (1.0-4.8); ABS Monocytes 0.4 10^3/uL (0.0-0.9); ABS Neutrophils 16.8 10^3/uL (1.5-7.6); Eosinophil % 0.4 %; Hematocrit 38.7 % (35-45); Hemoglobin 12.9 g/dL (11.5-14.3); Lymphocyte % 6.7 %; Mean Corpuscular Hemoglobin 31.3 pg (27-33); Mean Corpuscular Hgb Conc 33.4 g/dL (31-36); Mean Corpuscular Volume 93.9 fL (80-97); Mean Platelet Volume 8.1 fL (7.5-11.2); Platelet Count 263 10^3/uL (150-450); Red Blood Count 4.13 10^6/uL (3.63-4.92); White Blood Count 18.7 10^3/uL (3.8-11.8)
[2024-05-22] MEDS: Ondansetron 4 mg VIAL 2 MG/ML 2 ml VIAL IV ONE ×3 (17:23→21:50)
[2024-05-22 17:49] LABS: Albumin 3.5 g/dL (3.2-5.2); Albumin/Globulin Ratio 1.7 (1-3); C Reactive Protein 2.05 mg/L (<8.01); Calcium 8.3 mg/dL (8.6-10.3); Creatinine, Serum 1.2 mg/dL (0.51-0.95); Globulin 2.1 g/dL (2-4); Potassium 3.9 mmol/L (3.5-5.0); Total Bilirubin 0.3 mg/dL (0.2-1.0); Total Protein 5.6 g/dL (6.4-8.9); eGFR CKD-EPI 43.3 (>60)
[2024-05-22 18:56] LABS: Urine Appearance Turbid; Urine Bilirubin Negative (Negative); Urine Blood Negative (Negative); Urine Color Light-Yellow; Urine Glucose Negative (Negative); Urine Ketones Negative (Negative); Urine Nitrite Negative (Negative); Urine Protein Trace (Negative); Urine Specific Gravity 1.021 (1.002-1.030); Urine Urobilinogen Negative (Negative)
[2024-05-22 19:12] LABS: Urine Bacteria 2+ /HPF (Absent); Urine Red Blood Cell Trace(0-2/hpf) /HPF (0-Trace); Urine Squamous Epithelial Cell Present /HPF (Absent); Urine White Blood Cell 1+(6-10/hpf) /HPF (0-Trace)
[2024-05-22] MEDS: Morphine 4 MG/ML VIAL (1 ml) IV ONE (20:06)
[2024-05-22] MEDS: NS 0.9% 500 ml BAG 500 ML IV ONE (20:07)
[2024-05-23] MEDS ORDERED: Senna TAB 8.6 mg TAB PO PRN (01:00)
[2024-05-23 01:01] LABS: High Sensitivity Troponin 1 Hr 16 pg/mL (<15)
[2024-05-23] MEDS ORDERED: Ondansetron 4 mg VIAL 2 MG/ML 2 ml VIAL IV PRN (01:41)
[2024-05-23] MEDS ORDERED: Zosyn per Pharmacy NOTE FOLLOW UP SCH (02:00)
[2024-05-23] MEDS: NS 0.9% 1000 ml BAG 1,000 ML IV SCH (03:14)
[2024-05-23] MEDS: Enoxaparin 30 MG/0.3 ML SYR SUBCUT SCH (03:17)
[2024-05-23] MEDS: Piperacillin/Tazobac 3.375 BAG 3.375 GM/100 ML BAG IV ONE (03:18)
[2024-05-23 04:50] LABS: Hematocrit 37.9 % (35-45); Hemoglobin 12.5 g/dL (11.5-14.3); Mean Corpuscular Hemoglobin 31.1 pg (27-33); Mean Corpuscular Hgb Conc 33.1 g/dL (31-36); Mean Platelet Volume 7.9 fL (7.5-11.2); Platelet Count 221 10^3/uL (150-450); Red Blood Count 4.03 10^6/uL (3.63-4.92); White Blood Count 22.8 10^3/uL (3.8-11.8)
[2024-05-23 05:11] LABS: Calcium 8.7 mg/dL (8.6-10.3); Creatinine, Serum 1.04 mg/dL (0.51-0.95); eGFR CKD-EPI 51.4 (>60)
[2024-05-23 06:20] LABS: ABS Lymphocytes 0.3 10^3/uL (1.0-4.8); ABS Monocytes 0.6 10^3/uL (0.0-0.9); Lymphocyte % 1.2 %
[2024-05-23 09:39] LABS: Hematocrit 34.4 % (35-45); Hemoglobin 11.4 g/dL (11.5-14.3)
[2024-05-23] MEDS: Morphine 2 MG/ML SYRINGE IV PRN (10:30)
[2024-05-23 10:39] LABS: INR 1.14 (0.85-1.14)
[2024-05-23] MEDS: Sulfur Hexaflouride MICROSPHR 25 MG VIAL IV PRN (11:15)
[2024-05-23 15:11] LABS: ABS Lymphocytes 0.6 10^3/uL (1.0-4.8); ABS Monocytes 0.6 10^3/uL (0.0-0.9); ABS Neutrophils 19.7 10^3/uL (1.5-7.6); Hematocrit 34.7 % (35-45); Hemoglobin 11.4 g/dL (11.5-14.3); Lymphocyte % 2.7 %; Mean Corpuscular Hgb Conc 32.8 g/dL (31-36); Mean Corpuscular Volume 94.4 fL (80-97); Platelet Count 207 10^3/uL (150-450); Red Blood Count 3.68 10^6/uL (3.63-4.92); White Blood Count 20.9 10^3/uL (3.8-11.8)
[2024-05-23] MEDS: Senna TAB 8.6 mg TAB PO SCH (20:41)
[2024-05-23] MEDS ORDERED: Magnesium Hydroxide LIQ 30 ML UDC PO PRN (21:17)
[2024-05-24 06:05] LABS: Calcium 8.1 mg/dL (8.6-10.3); Creatinine, Serum 0.99 mg/dL (0.51-0.95); Magnesium 1.9 mg/dL (1.9-2.7); Potassium 3.5 mmol/L (3.5-5.0); eGFR CKD-EPI 54.5 (>60)
[2024-05-24 07:39] LABS: ABS Lymphocytes 0.4 10^3/uL (1.0-4.8); ABS Monocytes 0.5 10^3/uL (0.0-0.9); ABS Neutrophils 19.5 10^3/uL (1.5-7.6); Eosinophil % 0.1 %; Hematocrit 30.7 % (35-45); Hemoglobin 10.2 g/dL (11.5-14.3); Lymphocyte % 2.1 %; Mean Corpuscular Hemoglobin 31.1 pg (27-33); Mean Corpuscular Hgb Conc 33.1 g/dL (31-36); Mean Corpuscular Volume 94.1 fL (80-97); Mean Platelet Volume 8.9 fL (7.5-11.2); Platelet Count 177 10^3/uL (150-450); Red Blood Count 3.27 10^6/uL (3.63-4.92); Red Cell Distribution Width 14.2 % (12-17); White Blood Count 20.5 10^3/uL (3.8-11.8)
[2024-05-24] MEDS ORDERED: Zosyn per Pharmacy NOTE FOLLOW UP SCH (08:00)
[2024-05-24] MEDS: Magnesium Hydroxide LIQ 30 ML UDC PO SCH (09:10)
[2024-05-24] MEDS: Polyethylene Glycol 3350 17 GM PACKET PO SCH (09:10)
[2024-05-24] MEDS: Piperacillin/Tazobac 3.375 BAG 3.375 GM/100 ML BAG IV ONE (09:54)
[2024-05-24] MEDS: PEG 3000 GI LAVAGE 1 GALLON PO ONE (12:06)
[2024-05-24 12:52] LABS: Hematocrit 33.9 % (35-45); Hemoglobin 11.2 g/dL (11.5-14.3)
[2024-05-24] MEDS: ZOSYN 3.375 GM Q8H per EXTENDED INFUSION IV SCH (14:41)
[2024-05-24] MEDS: Senna TAB 8.6 mg TAB PO SCH (20:36)
[2024-05-24] MEDS: Ondansetron 4 mg VIAL 2 MG/ML 2 ml VIAL IV PRN (20:37)
[2024-05-24 21:32] LABS: Hematocrit 31.2 % (35-45); Hemoglobin 10.4 g/dL (11.5-14.3)
[2024-05-25 06:34] LABS: ABS Lymphocytes 0.5 10^3/uL (1.0-4.8); ABS Monocytes 0.7 10^3/uL (0.0-0.9); ABS Neutrophils 18.6 10^3/uL (1.5-7.6); Hematocrit 31.1 % (35-45); Hemoglobin 10.4 g/dL (11.5-14.3); Lymphocyte % 2.4 %; Mean Corpuscular Hgb Conc 33.3 g/dL (31-36); Mean Corpuscular Volume 92.9 fL (80-97); Mean Platelet Volume 8.2 fL (7.5-11.2); Platelet Count 171 10^3/uL (150-450); Red Blood Count 3.35 10^6/uL (3.63-4.92); White Blood Count 19.8 10^3/uL (3.8-11.8)
[2024-05-25 07:06] LABS: Calcium 7.8 mg/dL (8.6-10.3); Creatinine, Serum 1.03 mg/dL (0.51-0.95); Magnesium 2.2 mg/dL (1.9-2.7); Potassium 3.5 mmol/L (3.5-5.0)
[2024-05-25] MEDS: Iodixanol 320 (CONTRAST) 100 ML SDV IV ONE (19:19)
[2024-05-25] MEDS: cefTRIAXone 1 gm/50 mL D5W 1 GM/50 ML BAG IV SCH (21:44)
[2024-05-26 06:13] LABS: ABS Lymphocytes 0.6 10^3/uL (1.0-4.8); ABS Monocytes 0.6 10^3/uL (0.0-0.9); Eosinophil % 0.1 %; Hematocrit 35.2 % (35-45); Hemoglobin 11.7 g/dL (11.5-14.3); Lymphocyte % 4.8 %; Mean Corpuscular Hemoglobin 31.2 pg (27-33); Mean Corpuscular Hgb Conc 33.3 g/dL (31-36); Mean Corpuscular Volume 93.5 fL (80-97); Mean Platelet Volume 8.4 fL (7.5-11.2); Platelet Count 226 10^3/uL (150-450); Red Blood Count 3.76 10^6/uL (3.63-4.92); Red Cell Distribution Width 13.7 % (12-17); White Blood Count 12.3 10^3/uL (3.8-11.8)
[2024-05-26 06:34] LABS: Calcium 7.8 mg/dL (8.6-10.3); Creatinine, Serum 0.8 mg/dL (0.51-0.95); Potassium 3.1 mmol/L (3.5-5.0); eGFR CKD-EPI 70.4 (>60)
[2024-05-26 08:38] LABS: Magnesium 2.3 mg/dL (1.9-2.7); Phosphorus 1.5 mg/dL (2.5-5.0)
[2024-05-26] MEDS: Potassium Chloride LIQUID 20 MEQ/15 ML LIQUID PO ONE (09:27)
[2024-05-26] MEDS: KCL 20 MEQ/100 ML IVPREMIX 20 MEQ/100 ML BAG IV ONE (12:02)
[2024-05-26 20:19] LABS: ABS Lymphocytes 0.2 10^3/uL (1.0-4.8); ABS Monocytes 0.6 10^3/uL (0.0-0.9); ABS Neutrophils 13.1 10^3/uL (1.5-7.6); Eosinophil % 0.1 %; Hematocrit 38.2 % (35-45); Hemoglobin 12.6 g/dL (11.5-14.3); Lymphocyte % 1.6 %; Mean Corpuscular Hemoglobin 30.5 pg (27-33); Mean Corpuscular Volume 92.7 fL (80-97); Platelet Count 251 10^3/uL (150-450); Red Blood Count 4.12 10^6/uL (3.63-4.92); Red Cell Distribution Width 13.7 % (12-17); White Blood Count 13.9 10^3/uL (3.8-11.8)
[2024-05-26 20:38] LABS: Albumin 3.2 g/dL (3.2-5.2); Albumin/Globulin Ratio 1.5 (1-3); Calcium 7.7 mg/dL (8.6-10.3); Creatinine, Serum 0.92 mg/dL (0.51-0.95); Direct Bilirubin 0.2 mg/dL (0.03-0.18); Globulin 2.2 g/dL (2-4); Indirect Bilirubin 0.6 mg/dL (0.3-1.0); Magnesium 2.3 mg/dL (1.9-2.7); Phosphorus 1.2 mg/dL (2.5-5.0); Potassium 3.7 mmol/L (3.5-5.0); Total Bilirubin 0.8 mg/dL (0.2-1.0); Total Protein 5.4 g/dL (6.4-8.9); eGFR CKD-EPI 59.5 (>60)
[2024-05-26] MEDS: Lactated Ringers 1000 ml BAG 1,000 ML IV SCH (20:57)
[2024-05-26] MEDS: metroNIDAZOLE IV 500 MG/100ML 500 MG/100 ML BAG IVPB SCH (20:57)
[2024-05-27 08:28] LABS: ABS Lymphocytes 0.4 10^3/uL (1.0-4.8); ABS Neutrophils 15.9 10^3/uL (1.5-7.6); ABS Nucleated RBC 0.01 10^3/ul; Hematocrit 37.5 % (35-45); Hemoglobin 12.7 g/dL (11.5-14.3); Lymphocyte % 2.6 %; Mean Corpuscular Hemoglobin 30.9 pg (27-33); Mean Corpuscular Hgb Conc 33.8 g/dL (31-36); Mean Corpuscular Volume 91.6 fL (80-97); Mean Platelet Volume 7.9 fL (7.5-11.2); Platelet Count 249 10^3/uL (150-450); Red Blood Count 4.09 10^6/uL (3.63-4.92); White Blood Count 17.4 10^3/uL (3.8-11.8)
[2024-05-27 08:56] LABS: Calcium 7.9 mg/dL (8.6-10.3); Creatinine, Serum 0.82 mg/dL (0.51-0.95); Phosphorus 1.4 mg/dL (2.5-5.0); Potassium 3.5 mmol/L (3.5-5.0); eGFR CKD-EPI 68.3 (>60)
[2024-05-27 13:15] LABS: Rapid COVID-19 Molecular Undetected (Undetected)
[2024-05-27] MEDS: Iohexol 350 (CONTRAST) 500 ML MDV IV ONE (15:30)
[2024-05-27] MEDS ORDERED: Ondansetron ODT 4 mg TAB 4 MG TAB SL PRN (18:00)
[2024-05-27] MEDS: Magnesium Hydroxide LIQ 30 ML UDC PO SCH (20:45)
[2024-05-28] MEDS: Morphine 2 MG/ML SYRINGE IV PRN (04:46)
[2024-05-28 09:27] VITALS: BP 140/66
[2024-05-28] MEDS ORDERED: Morphine ORAL CONCENTRATE 5 MG/0.25 ML ORAL.SYRIN PO PRN (10:25)
== END 2024-05-28 14:31 | DRG 871 ==
LOC: ED 16:28 → EDHOLD 16:28 → SUATTDRO 22:49 → OBSVTOIN 22:49 → MED 05-23 11:43
PROVIDERS: ADMIT Internal Medicine; ATTEND Student in an Organized Health Care Education/Training Program